=== PATIENT | female | born 1940 | race Caucasian/White ===

== ENCOUNTER 2017-04-23 13:16 | Emergency (ER) | payer MEDICARE ==
[2017-04-23 13:25] VITALS: BP 115/71
--- NOTE | 2017-04-23 13:45 | ER Document Report ---
ED Medical Screen (RME) - General Chief Complaint: General Weakness Stated Complaint: LETHARGIC Time Seen by Provider: 04/23/17 13:39 TRAVEL OUTSIDE OF THE [place] IN LAST 30 DAYS: No - HPI Notes: 04/23/17 13:44 ams since tihs am - Related Data Allergies/Adverse Reactions: No Known Allergies Allergy (Verified 04/25/15 20:19) Past Medical History - Past Medical History Cardiac Medical History: Reports: Hx Hypertension Renal/ Medical History: Denies: Hx Peritoneal Dialysis GI Medical History: Reports: Hx Gastroesophageal Reflux Disease Psychiatric Medical History: Reports: Hx Dementia - Immunizations Hx Diphtheria, Pertussis, Tetanus Vaccination: Yes Review of Systems - Review of Systems Constitutional: Other - ams Physical Exam - Vital signs Vitals: Temp Pulse Resp BP Pulse Ox 98.2 F 102 H 18 115/71 94 04/23/17 13:22 04/23/17 13:22 04/23/17 13:22 04/23/17 13:22 04/23/17 13:22 - Respiratory Respiratory status: No respiratory distress Chest status: Nontender Breath sounds: Normal Chest palpation: Normal Course - Vital Signs Vital signs: Temp Pulse Resp BP Pulse Ox 98.2 F 102 H 18 115/71 94 04/23/17 13:22 04/23/17 13:22 04/23/17 13:22 04/23/17 13:22 04/23/17 13:22
[2017-04-23 14:09] LABS: ABSOLUTE LYMPHOCYTES (AUTO) 0.9 10^3/uL (0.5-4.7); ABSOLUTE MONOCYTES (AUTO) 1.4 10^3/uL (0.1-1.4); ABSOLUTE NEUT (AUTO) 8.9 10^3/uL (1.7-8.2); BASOPHILS % (AUTO) 0.1 % (0-2); EOSINOPHILS % (AUTO) 0.1 % (0-6); HEMATOCRIT 40.6 % (36.0-47.0); HEMOGLOBIN 14.3 g/dL (12.0-15.5); HGB HCT DIFFERENCE 2.3; MEAN CORPUSCULAR HEMOGLOBIN 30.6 pg (27.0-33.4); MEAN CORPUSCULAR HGB CONC 35.1 g/dL (32.0-36.0); MEAN CORPUSCULAR VOLUME 87 fl (80-97); MONOCYTES % (AUTO) 12.3 % (3-13); RED BLOOD COUNT 4.66 10^6/uL (3.72-5.28); RED CELL DISTRIBUTION WIDTH 13.2 % (11.5-14.0); SEGMENTED NEUTROPHILS % (AUTO) 79.5 % (42-78); WHITE BLOOD COUNT 11.2 10^3/uL (4.0-10.5)
[2017-04-23 14:11] LABS: VENOUS BLOOD HCO3 30.9 mmol/L (20-32); VENOUS BLOOD PCO2 49.7 mmHg (35-63); VENOUS BLOOD PH 7.41 (7.30-7.42)
[2017-04-23 14:18] LABS: PROTHROMBIN TIME 13.1 SEC (11.4-15.4)
[2017-04-23 14:32] LABS: ALANINE AMINOTRANSFERASE 12 U/L (9-52); ALKALINE PHOSPHATASE 47 U/L (38-126); ANION GAP 11 (5-19); ASPARTATE AMINO TRANSFERASE 19 U/L (14-36); BILIRUBIN,DIRECT 0.4 mg/dL (0.0-0.4); BILIRUBIN,TOTAL 0.7 mg/dL (0.2-1.3); BLOOD UREA NITROGEN 17 mg/dL (7-20); CALCIUM 9.7 mg/dL (8.4-10.2); CARBON DIOXIDE 29 mmol/L (22-30); CHLORIDE 103 mmol/L (98-107); CREATININE RESULT 0.57 mg/dL (0.52-1.25); GLUCOSE 144 mg/dL (75-110); POTASSIUM 3.9 mmol/L (3.6-5.0); SODIUM 143.3 mmol/L (137-145); TOTAL PROTEIN 7.8 g/dL (6.3-8.2)
--- NOTE | 2017-04-23 14:42 | RADIOLOGY REPORT (SQ) ---
EXAM DESCRIPTION: CT HEAD WITHOUT COMPLETED DATE/TIME: 04/23/2017 2:26 pm REASON FOR STUDY: ams COMPARISON: 04/25/2015. TECHNIQUE: Axial images acquired through the brain without intravenous contrast. Images reviewed wi th bone, brain and subdural windows. Images stored on PACS. All CT scanners at this facility use dose modulation, iterative reconstruction, and/or weight based d osing when appropriate to reduce radiation dose to as low as reasonably achievable (ALARA). [facility]: Dose Right [facility]: CareDose [facility]: Dose Right [facility]: Teradose 4D [facility]: Smart [facility]MD[facility]group RADIATION DOSE: Up-to-date CT equipment and radiation dose reduction techniques were employed. CTDIv ol: 64.6 mGy. DLP: 1163 mGy-cm.mGy. LIMITATIONS: None. FINDINGS: VENTRICLES: Prominent. CEREBRUM: No masses. No hemorrhage. No midline shift. Areas of low density in the white matter mos t likely due to chronic micro-vascular ischemic change. No evidence for acute infarction. CEREBELLUM: No masses. No hemorrhage. No alteration of density. No evidence for acute infarction. EXTRAAXIAL SPACES: Age-related involutional change. No fluid collections. No masses. ORBITS AND GLOBE: No intra- or extraconal masses. Normal contour of globe without masses. CALVARIUM: No fracture. PARANASAL SINUSES: No fluid or mucosal thickening. SOFT TISSUES: No mass or hematoma. OTHER: No other significant finding. IMPRESSION: CHRONIC CHANGES OF ATROPHY AND MICROVASCULAR ISCHEMIA. NO ACUTE PROCESS. TECHNICAL DOCUMENTATION: JOB ID: [id number] Quality ID # [id number]: Final reports with documentation of one or more dose reduction techniques (e.g., Au tomated exposure control, adjustment of the mA and/or kV according to patient size, use of iterative reconstruction technique) 2010 [employer]- All Rights Reserved
--- NOTE | 2017-04-23 14:42 | RADIOLOGY REPORT (SQ) ---
EXAM DESCRIPTION: CHEST PA/LAT COMPLETED DATE/TIME: 04/23/2017 2:34 pm REASON FOR STUDY: sob COMPARISON: 04/21/2016. EXAM PARAMETERS: NUMBER OF VIEWS: two views TECHNIQUE: Digital Frontal and Lateral radiographic views of the chest acquired. RADIATION DOSE: NA LIMITATIONS: none FINDINGS: LUNGS AND PLEURA: No opacities, masses or pneumothorax. No pleural effusion. MEDIASTINUM AND HILAR STRUCTURES: No masses or contour abnormalities. HEART AND VASCULAR STRUCTURES: Heart upper limits of normal size. No evidence for failure. BONES: No acute findings. HARDWARE: None in the chest. OTHER: No other significant finding. IMPRESSION: NO SIGNIFICANT RADIOGRAPHIC FINDING IN THE CHEST. TECHNICAL DOCUMENTATION: JOB ID: [id number] [employer]- All Rights Reserved
[2017-04-23 15:08] LABS: APPEARANCE,URINE SLIGHTLY-CLOUDY; BILIRUBIN,URINE NEGATIVE (NEGATIVE); GLUCOSE, URINE NEGATIVE (NEGATIVE); KETONES,URINE TRACE mg/dL (NEGATIVE); LEUKOCYTE ESTERASE,URINE NEGATIVE (NEGATIVE); NITRITE,URINE POSITIVE (NEGATIVE); PROTEIN,URINE 100 mg/dL (NEGATIVE); URINE SPECIFIC GRAVITY 1.014; UROBILINOGEN,URINE NEGATIVE mg/dL (<2.0)
--- NOTE | 2017-04-23 15:22 | ER Document Report ---
ED General - General Chief Complaint: General Weakness Stated Complaint: LETHARGIC Time Seen by Provider: 04/23/17 13:39 TRAVEL OUTSIDE OF THE [place] IN LAST 30 DAYS: No - HPI Notes: Patient is a 76-year-old female with a history of Alzheimer's, hypertension, and GERD who presents to the ED with son and daughter with altered mental status that began this morning. Son states that she has not been acting like herself, has been acting weaker than usual, and is not as communicative as she normally is. patient has also not been eating well today. She still producing wet and dirty diapers. Patient does have a 24-hour caregiver in her daughter. Son states that she does have a history of recurrent UTIs. Patient is only able to ambulate with assistance, but she has not been wanting to stand even with the assistance today. Son states that she still will talk randomly at times without any provocation. She has not started any new medications. Denies any drug allergies. Per Son: denies any headache, fever, head injury, neck pain, URI, syncope, cough, shortness of breath, wheeze, dyspnea, vomiting/ diarrhea, urinary retention, hematuria, muscle paralysis/weakness, or rash. - Related Data Allergies/Adverse Reactions: No Known Allergies Allergy (Verified 04/25/15 20:19) Past Medical History - Social History Smoking Status: Never Smoker Chew tobacco use (# tins/day): No Frequency of alcohol use: None Drug Abuse: None Family History: Reviewed & Not Pertinent - Past Medical History Cardiac Medical History: Reports: Hx Hypertension Renal/ Medical History: Denies: Hx Peritoneal Dialysis GI Medical History: Reports: Hx Gastroesophageal Reflux Disease Psychiatric Medical History: Reports: Hx Dementia - Immunizations Hx Diphtheria, Pertussis, Tetanus Vaccination: Yes Review of Systems - Review of Systems -: Yes ROS unobtainable due to patient's medical condition - see hpi otherwise for pertinent ROS Hematologic/Lymphatic: denies: Easy bleeding, Easy bruising Neurological/Psychological: denies: Seizure Physical Exam - Vital signs Vitals: Temp Pulse Resp BP Pulse Ox 98.2 F 102 H 18 115/71 94 04/23/17 13:22 04/23/17 13:22 04/23/17 13:22 04/23/17 13:22 04/23/17 13:22 Notes: PHYSICAL EXAMINATION: GENERAL: Well-appearing, well-nourished and in no acute distress. Alert and arousable. HEAD: Atraumatic, normocephalic. Non-tender. No mahoney sign EYES: Pupils equal round and reactive to light, extraocular movements intact, sclera anicteric, conjunctiva are normal. No raccoon eyes/entrapment ENT: EAC clear b/l. TM's intact b/l without erythema, fluid, or perforation. Nares patent and without discharge. oropharynx clear without exudates. No tonsilar hypertrophy or erythema. Moist mucous membranes. No sinus tenderness. No hemotympanum/CSF discharge. NECK: Normal range of motion, supple without lymphadenopathy. No rigidity. No midline tenderness. Chest: No flail chest. equal rise/fall. Non-tender LUNGS: Breath sounds clear to auscultation bilaterally and equal. No wheezes rales or rhonchi. HEART: Regular rate and rhythm without murmurs, rubs, gallops. ABDOMEN: Soft, nontender, nondistended abdomen. No guarding, no rebound. No masses appreciated. Normal bowel sounds present. No CVA tenderness bilaterally. Musculoskeletal: Ext b/l: FROM to passive/active. Strength 5+/5. No deficits noted. No bony tenderness of extremities. No calf warmth, erythema, or tenderness to palp. Parris neg. Extremities: No cyanosis, clubbing, or edema b/l. Peripheral pulses 2+. Capillary refill less than 2 seconds. NEUROLOGICAL: unable to perform MMSE/NIH due to patient's Alzheimers. Cranial nerves grossly intact. Normal speech when she does speak (does not sound slurred, but is spoken in a low voice. Normal sensory. Reflexes 2+ b/l. PSYCH: Normal mood, normal affect. SKIN: Warm, Dry, normal turgor, no rashes or lesions noted. Course - Re-evaluation Re-evalutation: 04/23/17 16:[address] Aranda who is in agreement with discharge/plan: Patient is an afebrile, well-hydrated, 76-year-old female who presents to the ED with altered mental status and UTI. Vitals are stable. PE otherwise unremarkable for any focal neurological deficits otherwise. Exam was limited due to patient's Alzheimer's. CBC showed a very mildly elevated white count of 11.2. CMP was generally unremarkable with a lactic acid of 2.4. Urinalysis did show nitrates. Urine culture is pending. CT scan of the head and chest x- ray were unremarkable for any acute pathology. EKG and cardiac enzymes also unremarkable for any acute pathology at this time. There was a very mildly elevated d-dimer at 1.05, but patient is not tachypneic, tachycardic, hyper/ hypotensive, not in any respiratory distress, no obvious signs of chest pain, and a well's score of 0. No further evaluation warranted at this time with the low risk factors. Rocephin 1 g was given IV today. I will send her home with keflex to take as directed. Recheck with your PCM in 2-3 days. Return to the ED with any worsening/concerning symptoms otherwise as reviewed in discharge. Son is in agreement. Low suspicion for any acute glaucoma, temporal arteritis, meningitis, intracranial hemorrhage, ischemic stroke, ACS, PE, pneumothorax, pericarditis, dissection, acute abdomen, mediastinitis, or fracture at this time. Son is aware that her condition can change from initial presentation and that he needs to monitor symptoms closely for any acute changes and seek medical attention if so. - Vital Signs Vital signs: Temp Pulse Resp BP Pulse Ox 98.2 F 102 H 18 115/71 94 04/23/17 13:22 04/23/17 13:22 04/23/17 13:22 04/23/17 13:22 04/23/17 13:22 - Laboratory Result Diagrams: 04/23/17 13:54 04/23/17 13:54 Laboratory results interpreted by me: 04/23/17 04/23/17 04/23/17 13:54 13:54 13:54 WBC 11.2 H Seg Neutrophils % 79.5 H Lymphocytes % 8.0 L Absolute Neutrophils 8.9 H D-Dimer Glucose 144 H POC Glucose Lactic Acid 2.4 H Urine Protein Urine Ketones Urine Blood Urine Nitrite 04/23/17 04/23/17 04/23/17 13:54 13:57 14:42 WBC Seg Neutrophils % Lymphocytes % Absolute Neutrophils D-Dimer 1.05 H Glucose POC Glucose 138 H Lactic Acid Urine Protein 100 H Urine Ketones TRACE H Urine Blood LARGE H Urine Nitrite POSITIVE H 04/23/17 15:15 WBC Seg Neutrophils % Lymphocytes % Absolute Neutrophils D-Dimer Glucose POC Glucose 113 H Lactic Acid Urine Protein Urine Ketones Urine Blood Urine Nitrite Discharge - Discharge Clinical Impression: UTI (urinary tract infection) Qualifiers: Urinary tract infection type: site unspecified Hematuria presence: without hematuria Qualified Code(s): N39.0 - Urinary tract infection, site not specified Altered mental status, unspecified Qualifiers: Altered mental status type: unspecified Qualified Code(s): R41.82 - Altered mental status, unspecified Condition: Stable Disposition: HOME, SELF-CARE Instructions: Cephalexin ([facility]), Urinary Tract Infection ([facility]), Altered Mental Status ([facility]) Additional Instructions: Push fluids (i.e. water, cranberry juice) Proper hygenic technique Keep the skin clean Tylenol/ibuprofen as needed May use over the counter AZO for burning with urination Take medications as directed F/u with your PCM in 2-3 days for a recheck Consider consult with a Urologist for ongoing/worsening symptoms. Return to the ED with any worsening symptoms and/or development of fever, headache, chest pain, palpitations, syncope, shortness of breath, trouble breathing, abdominal pain, n/v/d, blood in stool/urine, muscle weakness/ paralysis, numbness/tingling, or other worsening symptoms that are concerning to you. Prescriptions: Cephalexin Monohydrate [Keflex 500 mg Capsule] 500 mg PO BID #14 capsule Referrals: BELKYS [place] MD [Primary Care Provider] - 04/25/17
[2017-04-23] MEDS ORDERED: NORMAL SALINE 1000 ML 1,000 ML IV ONE (15:40)
[2017-04-23] MEDS ORDERED: CEFTRIAXONE 1 GM/D5W RTU 1 GM/50 ML RTUPB IV ONE ×2 (16:19→16:46)
--- NOTE | 2017-04-23 23:23 | EKG REPORT ---
SEVERITY:- ABNORMAL ECG - SINUS RHYTHM LEFT ATRIAL ABNORMALITY PROBABLE LEFT VENTRICULAR HYPERTROPHY : Confirmed by: Mauricio Randall 23-Apr-2017 23:22:52
== END 2017-04-23 18:08 | disposition home or self-care (01) ==
LOC: ER 13:16
DX: N39.0 Urinary tract infection, site not specified (principal); R41.82 Altered mental status, unspecified; R53.1 Weakness; R53.83 Other fatigue; G30.9 Alzheimer's disease, unspecified; F02.80 Dementia in other diseases classified elsewhere, unspecified severity, without behavioral disturbance, psychotic disturbance, mood disturbance, and anxiety; I10 Essential (primary) hypertension; K21.9 Gastro-esophageal reflux disease without esophagitis
CPT/HCPCS: 93005; 99285; 96360; 51701; 36415; 87040; 87086; 82962; 85025; 85610; 80053; 81001; 84484; 85379; 82803; 83605; 71020; 70450; 93010; J7030

== ENCOUNTER 2017-06-15 14:56 | Inpatient (IN) | payer MEDICARE ==
[2017-06-15] MEDS ORDERED: NORMAL SALINE 500 ML IV PRN (15:34)
--- NOTE | 2017-06-15 15:38 | ER Document Report ---
ED General - General Chief Complaint: Probable Seizure Stated Complaint: POSSIBLE SEIZURE Time Seen by Provider: 06/15/17 15:18 Mode of Arrival: Medic Information source: Relative Notes: This is a 76-year-old female with a history of Alzheimer's, seizures, hypertension who lives at home. Home health aide called EMS because of a seizure at home. EMS arrived at the scene and reported a blood pressure of 62/ 44. The Accu-Chek at home was 115. Patient was given IV fluids by EMS and on arrival the blood pressure was 94/56. The patient has advanced dementia. Her eyes are open and she does not appear in any distress. She is accompanied by her son is at the bedside. TRAVEL OUTSIDE OF THE [place] IN LAST 30 DAYS: No - HPI Onset: Just prior to arrival Onset/Duration: Sudden Quality of pain: No pain Severity: None Pain Level: Denies Associated symptoms: denies: Chills, Fever, Shortness of breath Exacerbated by: Denies Relieved by: Denies Similar symptoms previously: Yes Recently seen / treated by doctor: Yes - Related Data Allergies/Adverse Reactions: No Known Allergies Allergy (Verified 06/15/17 15:12) Home Medications: Current Home Medications Divalproex Sodium [Divalproex Sodium ER] 750 mg PO QHS 06/15/17 [History] Ferrous Sulfate [Feosol 325 mg Tablet] 325 mg PO [id number] 06/15/17 [History] Levothyroxine Sodium [Synthroid 0.1 mg Tablet] 0.1 mg PO DAILY 06/15/17 [History ] Lisinopril [Prinivil] 20 mg PO DAILY 06/15/17 [History] Lorazepam [Ativan 1 mg Tablet] 1 mg PO Q12HP PRN 06/15/17 [History] Memantine HCl [Namenda Xr] 28 mg PO DAILY 06/15/17 [History] Omeprazole 20 mg PO DAILY 06/15/17 [History] Pravastatin Sodium [Pravachol] 40 mg PO DAILY 06/15/17 [History] Quetiapine Fumarate [Seroquel 25 mg Tablet] 25 mg PO QHS 06/15/17 [History] Rivastigmine Tartrate [Rivastigmine] 3 mg PO Q12 06/15/17 [History] Sertraline HCl [Zoloft] 150 mg PO DAILY 06/15/17 [History] Sucralfate [Carafate 1 gm Tablet] 1 gm PO Q12 06/15/17 [History] Tramadol HCl [Ultram 50 mg Tablet] 50 mg PO Q12HP PRN 06/15/17 [History] Past Medical History - General Information source: Relative, Emergency Med Personnel - Social History Smoking Status: Never Smoker Cigarette use (# per day): No Chew tobacco use (# tins/day): No Smoking Education Provided: No Frequency of alcohol use: None Drug Abuse: None Lives with: Alone Family History: Reviewed & Not Pertinent Patient has suicidal ideation: No Patient has homicidal ideation: No - Past Medical History Cardiac Medical History: Reports: Hx Hypertension Renal/ Medical History: Denies: Hx Peritoneal Dialysis GI Medical History: Reports: Hx Gastroesophageal Reflux Disease Psychiatric Medical History: Reports: Hx Dementia - Immunizations Hx Diphtheria, Pertussis, Tetanus Vaccination: Yes Review of Systems - Review of Systems Constitutional: denies: Chills, Fever EENT: No symptoms reported Cardiovascular: No symptoms reported Respiratory: No symptoms reported Gastrointestinal: No symptoms reported Genitourinary: No symptoms reported Female Genitourinary: No symptoms reported Musculoskeletal: No symptoms reported Skin: No symptoms reported Hematologic/Lymphatic: No symptoms reported Neurological/Psychological: See HPI Physical Exam - Vital signs Vitals: Resp 16 06/15/17 15:00 Notes: Physical exam: GENERAL: 76-year-old female, alert and oriented 3, no acute distress HEAD: Atraumatic, normocephalic. EYES: Pupils equal round and reactive to light, extraocular movements intact, sclera anicteric, conjunctiva are normal. ENT: TMs normal, nares patent, oropharynx clear without exudates. Moist mucous membranes. NECK: Normal range of motion, supple without obvious mass or JVD. LUNGS: Breath sounds clear to auscultation bilaterally and equal. No wheezes rales or rhonchi. HEART: Regular rate and rhythm without murmurs, rubs or gallops. ABDOMEN: Soft, normoactive bowel sounds. No tenderness to palpation. No guarding, no rebound. No masses appreciated. EXTREMITIES: Normal range of motion, no pitting or edema. No clubbing or cyanosis. NEUROLOGICAL: Cranial nerves II through XII grossly intact. Normal speech, moving all extremities. SKIN: Warm, Dry, normal turgor, no rashes or lesions noted. Course - Re-evaluation Re-evalutation: 06/15/17 17:53 This is a 76-year-old female with a history of dementia, hypertension and seizures. She lives at home and has a home health child care giver. EMS was called for possible seizure. The patient has been treated with oral antibiotics for recent UTI. EMS noted that the patient was hypotensive and treated her with fluids. From a mental status point of view, the patient has been baseline as per the son who is in the ER. Patient's blood pressure has been low at times (in the high 80s systolic). Her white count is 12.8 and her lactic acid is 4.6. While it is possible that both of those are from a possible seizure that she had may had at home, it would not explain the fluctuating blood pressure. Therefore, blood and urine cultures were sent, CT of the abdomen was done to rule out an obstructive uropathy, IV ceftriaxone was started. - Vital Signs Vital signs: Temp Pulse Resp BP Pulse Ox 99.0 F 84 16 119/93 H 93 06/15/17 18:56 06/15/17 19:00 06/15/17 18:56 06/15/17 18:56 06/15/17 18:56 - Laboratory Result Diagrams: 06/15/17 20:00 06/15/17 16:15 Laboratory results interpreted by me: 06/15/17 06/15/17 06/15/17 15:50 16:15 16:15 WBC 12.8 H Lymphocytes % 9.8 L Monocytes % 13.5 H Absolute Neutrophils 9.8 H Absolute Monocytes 1.7 H Sodium 145.3 H Potassium 3.2 L Lactic Acid Urine Protein >=500 H Urine Glucose (UA) 50 H Urine Blood LARGE H Valproic Acid 36.4 L 06/15/17 16:15 WBC Lymphocytes % Monocytes % Absolute Neutrophils Absolute Monocytes Sodium Potassium Lactic Acid 4.6 H Urine Protein Urine Glucose (UA) Urine Blood Valproic Acid - Diagnostic Test Radiology reviewed: Image reviewed, Reports reviewed - CT of the abdomen shows no evidence of obstructive uropathy. Chest x-ray shows atelectasis. - EKG Interpretation by Me Rate: Normal Rhythm: NSR - EKG shows normal sinus rhythm with a ventricular rate of 82, no acute ST-T wave changes Discharge - Discharge Clinical Impression: Hypotension, UTI, Dehydration Condition: Stable Disposition: ADMITTED INPATIENT Admitting Provider: Hospitalist - Dr Mace Unit Admitted: Telemetry
[2017-06-15 16:13] LABS: APPEARANCE,URINE SLIGHTLY-CLOUDY; BILIRUBIN,URINE NEGATIVE (NEGATIVE); GLUCOSE, URINE 50 mg/dL (NEGATIVE); KETONES,URINE NEGATIVE (NEGATIVE); LEUKOCYTE ESTERASE,URINE NEGATIVE (NEGATIVE); NITRITE,URINE NEGATIVE (NEGATIVE); PROTEIN,URINE >=500 mg/dL (NEGATIVE); URINE SPECIFIC GRAVITY 1.008; UROBILINOGEN,URINE NEGATIVE mg/dL (<2.0)
[2017-06-15 16:37] LABS: ABSOLUTE LYMPHOCYTES (AUTO) 1.3 10^3/uL (0.5-4.7); ABSOLUTE MONOCYTES (AUTO) 1.7 10^3/uL (0.1-1.4); ABSOLUTE NEUT (AUTO) 9.8 10^3/uL (1.7-8.2); BASOPHILS % (AUTO) 0.3 % (0-2); EOSINOPHILS % (AUTO) 0.3 % (0-6); HEMATOCRIT 43.9 % (36.0-47.0); HEMOGLOBIN 14.9 g/dL (12.0-15.5); HGB HCT DIFFERENCE 0.8; LYMPHOCYTES % (AUTO) 9.8 % (13-45); MEAN CORPUSCULAR HEMOGLOBIN 29.7 pg (27.0-33.4); MEAN CORPUSCULAR VOLUME 88 fl (80-97); MONOCYTES % (AUTO) 13.5 % (3-13); RED BLOOD COUNT 5.01 10^6/uL (3.72-5.28); RED CELL DISTRIBUTION WIDTH 13.2 % (11.5-14.0); SEGMENTED NEUTROPHILS % (AUTO) 76.1 % (42-78); WHITE BLOOD COUNT 12.8 10^3/uL (4.0-10.5)
[2017-06-15 16:52] LABS: ALANINE AMINOTRANSFERASE 9 U/L (9-52); ALBUMIN 3.7 g/dL (3.5-5.0); ALKALINE PHOSPHATASE 56 U/L (38-126); ANION GAP 15 (5-19); ASPARTATE AMINO TRANSFERASE 19 U/L (14-36); BILIRUBIN,DIRECT 0.3 mg/dL (0.0-0.4); BILIRUBIN,TOTAL 0.4 mg/dL (0.2-1.3); BLOOD UREA NITROGEN 8 mg/dL (7-20); CALCIUM 8.5 mg/dL (8.4-10.2); CARBON DIOXIDE 27 mmol/L (22-30); CHLORIDE 103 mmol/L (98-107); CREATININE RESULT 0.59 mg/dL (0.52-1.25); GLUCOSE 107 mg/dL (75-110); POTASSIUM 3.2 mmol/L (3.6-5.0); SODIUM 145.3 mmol/L (137-145); TOTAL PROTEIN 7.4 g/dL (6.3-8.2)
[2017-06-15 16:57] LABS: VALPROIC ACID 36.4 ug/mL (50.0-120.0)
[2017-06-15] MEDS ORDERED: DIVALPROEX SODIUM 500 MG TAB.SR.24H PO ONE (16:59)
[2017-06-15] MEDS ORDERED: NORMAL SALINE 1000 ML 1,000 ML IV PRN (17:03)
[2017-06-15] MEDS ORDERED: POTASSIUM CHLORIDE 10 MEQ TABLET.SA PO ONE ×2 (17:04→21:00)
--- NOTE | 2017-06-15 17:10 | RADIOLOGY REPORT (SQ) ---
EXAM DESCRIPTION: CHEST SINGLE VIEW COMPLETED DATE/TIME: 06/15/2017 4:41 pm REASON FOR STUDY: hypotension COMPARISON: Chest films 04/23/2017, 04/21/2016 EXAM PARAMETERS: NUMBER OF VIEWS: One view. TECHNIQUE: Single frontal radiographic view of the chest acquired. RADIATION DOSE: NA LIMITATIONS: None. FINDINGS: LUNGS AND PLEURA: Mild right basilar bandlike atelectasis. No fluffy alveolar infiltrates worrisome for edema or pneumonia. No pleural effusion. No pneumothorax. MEDIASTINUM AND HILAR STRUCTURES: No masses. Contour normal. HEART AND VASCULAR STRUCTURES: Mild cardiomegaly BONES: No acute findings. HARDWARE: None in the chest. OTHER: No other significant finding. IMPRESSION: Minimal right basilar bandlike atelectasis. Stable mild cardiomegaly. TECHNICAL DOCUMENTATION: JOB ID: [id number] [employer]- All Rights Reserved
[2017-06-15] MEDS ORDERED: CEFTRIAXONE 1 GM/D5W RTU 1 GM/50 ML RTUPB IV ONE (17:18)
--- NOTE | 2017-06-15 17:34 | RADIOLOGY REPORT (SQ) ---
EXAM DESCRIPTION: CT LTD RENAL STONE PROTOCOL ON COMPLETED DATE/TIME: 06/15/2017 5:14 pm REASON FOR STUDY: hematuria flank pain, recent uti COMPARISON: None. TECHNIQUE: CT scan of the abdomen and pelvis performed without intravenous or oral contrast. Images reviewed with lung, soft tissue, and bone windows. Reconstructed coronal and sagittal MPR images revi ewed. All images stored on PACS. All CT scanners at this facility use dose modulation, iterative reconstruction, and/or weight based d osing when appropriate to reduce radiation dose to as low as reasonably achievable (ALARA). [facility]: Dose Right [facility]: CareDose [facility]: Dose Right [facility]: Teradose 4D [facility]: FORVM RADIATION DOSE: 6.8mGy. LIMITATIONS: None. FINDINGS: LOWER CHEST: No significant findings. No nodules or infiltrates. NON-CONTRASTED LIVER, SPLEEN, ADRENALS: 2 prominent hepatic cysts are present. The spleen is normal. There is thickening of both adrenal glands. PANCREAS: No masses. No peripancreatic inflammatory changes. GALLBLADDER: Not identified. RIGHT KIDNEY AND URETER: No suspicious masses. Assessment limited by lack of IV contrast. No signif icant calcifications. No hydronephrosis or hydroureter. LEFT KIDNEY AND URETER: No suspicious masses. Assessment limited by lack of IV contrast. No signifi cant calcifications. No hydronephrosis or hydroureter. AORTA AND RETROPERITONEUM: No aneurysm. No retroperitoneal masses or adenopathy. BOWEL AND PERITONEAL CAVITY: Multiple diverticula arise from the descending colon and sigmoid. No ac cristofer inflammatory changes are appreciated. There is fluid in the cecum. APPENDIX: Not identified. PELVIS, BLADDER, AND ABDOMINAL WALL:Considerable fecal material is present in the left colon and in t he rectum. The urinary bladder has a Caldera catheter and is not able to be evaluated. The uterus is absent. There is no adnexal mass or fluid collection. BONES: Degenerative disc changes at L4-5. OTHER: No other significant finding. IMPRESSION: 1. There are 2 prominent hepatic cysts. 2. No urinary pathology is seen. 3. There is diverticulosis coli. 4. There is considerable fecal material in the left colon and in the rectum possibly suggesting cons tipation. 5. Lumbar degenerative disc changes. COMMENT: Quality ID # [id number]: Final reports with documentation of one or more dose reduction techniques (e.g., Automated exposure control, adjustment of the mA and/or kV according to patient size, use of iterative reconstruction technique) TECHNICAL DOCUMENTATION: JOB ID: [id number] [employer]- All Rights Reserved
[2017-06-15] MEDS ORDERED: ACETAMINOPHEN 325 MG TABLET PO PRN (18:21)
--- NOTE | 2017-06-15 19:03 | PDOC H&P ---
History of Present Illness Admission Date/PCP: 06/15/17 18:10 [place] MD Patient complains of: Seizure like activity History of Present Illness: Patient is a 76-year-old woman with history of advanced dementia, hyperlipidemia, hypothyroidism, seizure disorder was brought to the emergency room to be evaluated early today for possible seizure activity. She is mostly nonverbal and history was obtained from the caregiver at bedside. Earlier today home while she was getting to get a bath, caregiver noted that she started gurgling and shaking, she decided to call the EMS. On EMS arrival she was found to be hypotensive with systolic blood pressure 62 and diastolic of 44. Blood sugar 115. She was given IV fluid by EMS with improvement of her blood pressure systolic of 90. The caregiver reported about a week ago she was given antibiotics doxycycline for UTI and she had 3 pills left. She does mumbles at times but otherwise, she has not offered any complaint per the caregiver. No sign of coughing, no reports of vomiting abdominal pain no diarrhea. She does take a few steps with assist but mostly not mobile. She lives with her son. Hospitalist consulted for admission for possible sepsis along with UTI. Past Medical History Cardiac Medical History: Reports: Hypertension GI Medical History: Reports: Gastroesophageal Reflux Disease Psychiatric Medical History: Reports: Dementia Social History Smoking Status: Never Smoker Family History Family History: Reviewed & Not Pertinent Parental Family History Reviewed: No Children Family History Reviewed: Unknown Sibling(s) Family History Reviewed.: Unknown Medication/Allergy Home Medications: Divalproex Sodium [Divalproex Sodium ER] 500 mg PO DAILY 06/15/17 Doxycycline Monohydrate [Doxycycline Monohydrate] 1 tab PO BID 06/15/17 Ergocalciferol (Vitamin D2) [Vitamin D] 1,000 unit PO DAILY 06/15/17 Ferrous Sulfate [Ferrous Sulfate] 1 tab PO DAILY 06/15/17 Levothyroxine Sodium [Synthroid] 75 mcg PO DAILY 06/15/17 Lisinopril [Lisinopril] 1 tab PO DAILY 06/15/17 Lorazepam [Lorazepam] 1 tab PO BID 06/15/17 Memantine HCl [Namenda Xr] 1 tab PO DAILY 06/15/17 Omeprazole [Omeprazole] 1 tab PO DAILY 06/15/17 Pravastatin Sodium [Pravastatin Sodium] 20 mg PO DAILY 06/15/17 Quetiapine Fumarate 25 mg PO BID 06/15/17 Rivastigmine Tartrate [Rivastigmine] 1 tab PO BID 06/15/17 Sertraline HCl [Sertraline HCl] 150 mg PO DAILY 06/15/17 Sucralfate [Carafate 1 gm Tablet] 1 gm PO BID 06/15/17 Zolpidem Tartrate [Ambien] 10 mg PO DAILY 06/15/17 Allergies/Adverse Reactions: No Known Allergies Allergy (Verified 06/15/17 15:12) Review of Systems ROS unobtainable: Other - Most non verbal and history obtained from caregiver Constitutional: ABSENT: chills, fever(s), headache(s), weight gain, weight loss Eyes: ABSENT: visual disturbances Physical Exam Vital Signs: Temp Pulse Resp BP Pulse Ox 98.8 F 19 106/75 98 06/15/17 17:46 06/15/17 17:46 06/15/17 17:46 06/15/17 17:46 General appearance: PRESENT: no acute distress, other - Pleasant elderly woman Head exam: PRESENT: atraumatic, normocephalic Eye exam: PRESENT: EOMI, PERRLA. ABSENT: scleral icterus Mouth exam: PRESENT: moist, tongue midline Neck exam: ABSENT: JVD Respiratory exam: PRESENT: clear to auscultation lyssa. ABSENT: rales, rhonchi, wheezes Cardiovascular exam: PRESENT: RRR. ABSENT: diastolic murmur, rubs, systolic murmur Vascular exam: PRESENT: normal capillary refill GI/Abdominal exam: PRESENT: normal bowel sounds, soft. ABSENT: distended, guarding, mass, organolmegaly, rebound, tenderness Rectal exam: PRESENT: deferred Extremities exam: PRESENT: full ROM. ABSENT: calf tenderness, clubbing, pedal edema Neurological exam: PRESENT: alert, awake Psychiatric exam: PRESENT: appropriate affect, normal mood. ABSENT: homicidal ideation, suicidal ideation Skin exam: PRESENT: dry, warm. ABSENT: cyanosis, rash Results Laboratory Results: 06/15/17 06/15/17 06/15/17 16:15 16:15 16:15 WBC 12.8 H RBC 5.01 Hgb 14.9 Hct 43.9 MCV 88 Plt Count 218 Lymphocytes % 9.8 L Sodium 145.3 H Potassium 3.2 L Chloride 103 Carbon Dioxide 27 BUN 8 Creatinine 0.59 Glucose 107 Lactic Acid 4.6 H Impressions: Chest X-Ray 06/15/17 15:38 IMPRESSION: Minimal right basilar bandlike atelectasis. Stable mild cardiomegaly. Limited or Localized CT 06/15/17 17:00 IMPRESSION: 1. There are 2 prominent hepatic cysts. 2. No urinary pathology is seen. 3. There is diverticulosis coli. 4. There is considerable fecal material in the left colon and in the rectum possibly suggesting constipation. 5. Lumbar degenerative disc changes. Assessment & Plan - Diagnosis (1) Sepsis associated hypotension Is this a current diagnosis for this admission?: Yes Plan: Secondary to urinary source Has been on p.o. antibiotics for UTI outpatient Blood and urine cultures sent Continue ceftriaxone pending culture Chest x-ray with atelectasis Follow-up repeat lactic acid (2) Hypotension Is this a current diagnosis for this admission?: Yes Plan: Holding home antihypertensive BP improved Continue IV fluid (3) Advanced dementia Is this a current diagnosis for this admission?: Yes Plan: Continue home regimen (4) Hypokalemia Is this a current diagnosis for this admission?: Yes Plan: Potassium supplement added Follow-up labs in the morning (5) Hyperlipidemia Is this a current diagnosis for this admission?: Yes Plan: Continue statin (6) Hypothyroidism Is this a current diagnosis for this admission?: Yes Plan: Continue Synthroid (7) DVT prophylaxis Is this a current diagnosis for this admission?: Yes Plan: On Lovenox - Time Time Spent: 50 to 70 Minutes Medications reviewed and adjusted accordingly: Yes Anticipated discharge: Home - Inpatient Certification Medical Necessity: Failure to Improve With Outpatient Therapy, Need For IV Fluids, Need for IV Antibiotics
--- NOTE | 2017-06-15 19:17 | EKG REPORT ---
SEVERITY:- ABNORMAL ECG - SINUS RHYTHM LEFT ATRIAL ABNORMALITY LEFT VENTRICULAR HYPERTROPHY PROLONGED QT INTERVAL : Confirmed by: Shaka Garcia MD 15-Jun-2017 19:16:57
[2017-06-15 20:48] LABS: ABSOLUTE LYMPHOCYTES (AUTO) 1.6 10^3/uL (0.5-4.7); ABSOLUTE MONOCYTES (AUTO) 0.7 10^3/uL (0.1-1.4); ABSOLUTE NEUT (AUTO) 4.9 10^3/uL (1.7-8.2); BASOPHILS % (AUTO) 0.6 % (0-2); EOSINOPHILS % (AUTO) 0.1 % (0-6); HEMATOCRIT 44.7 % (36.0-47.0); HEMOGLOBIN 15.4 g/dL (12.0-15.5); HGB HCT DIFFERENCE 1.5; LYMPHOCYTES % (AUTO) 21.9 % (13-45); MEAN CORPUSCULAR HEMOGLOBIN 29.7 pg (27.0-33.4); MEAN CORPUSCULAR HGB CONC 34.5 g/dL (32.0-36.0); MEAN CORPUSCULAR VOLUME 86 fl (80-97); MONOCYTES % (AUTO) 9.9 % (3-13); RED CELL DISTRIBUTION WIDTH 13.6 % (11.5-14.0); SEGMENTED NEUTROPHILS % (AUTO) 67.5 % (42-78); WHITE BLOOD COUNT 7.2 10^3/uL (4.0-10.5)
[2017-06-15] MEDS ORDERED: ENOXAPARIN SODIUM INJ 30 MG/0.3 ML DISP.SYRIN SUBCUT ONE (21:00)
[2017-06-15] MEDS: QUETIAPINE FUMARATE 25 MG TABLET PO SCH (21:55)
[2017-06-15] MEDS: SUCRALFATE 1 GM TABLET PO SCH (21:55)
[2017-06-15] MEDS: RIVASTIGMINE TARTRATE 1.5 MG CAPSULE PO SCH (21:56)
[2017-06-15] MEDS ORDERED: POTASSIUM CHLORIDE 20 MEQ/15 ML UDCUP PO ONE (22:00)
[2017-06-16] MEDS: LANSOPRAZOLE 15 MG TAB.RAP.DR PO SCH (05:21)
[2017-06-16 05:49] LABS: ABSOLUTE EOSINOPHILS # (AUTO) 0.1 10^3/uL (0.0-0.6); ABSOLUTE LYMPHOCYTES (AUTO) 2.6 10^3/uL (0.5-4.7); ABSOLUTE MONOCYTES (AUTO) 0.8 10^3/uL (0.1-1.4); ABSOLUTE NEUT (AUTO) 3.2 10^3/uL (1.7-8.2); BASOPHILS % (AUTO) 0.6 % (0-2); HEMATOCRIT 33.2 % (36.0-47.0); HGB HCT DIFFERENCE 1.6; LYMPHOCYTES % (AUTO) 39.1 % (13-45); MEAN CORPUSCULAR HEMOGLOBIN 29.8 pg (27.0-33.4); MEAN CORPUSCULAR HGB CONC 34.8 g/dL (32.0-36.0); MEAN CORPUSCULAR VOLUME 86 fl (80-97); MONOCYTES % (AUTO) 11.5 % (3-13); RED BLOOD COUNT 3.88 10^6/uL (3.72-5.28); RED CELL DISTRIBUTION WIDTH 13.4 % (11.5-14.0); SEGMENTED NEUTROPHILS % (AUTO) 47.8 % (42-78); WHITE BLOOD COUNT 6.7 10^3/uL (4.0-10.5)
[2017-06-16 06:06] LABS: HEMOGLOBIN 11.6 g/dL (12.0-15.5)
[2017-06-16 06:09] LABS: ANION GAP 10 (5-19); BLOOD UREA NITROGEN 10 mg/dL (7-20); CARBON DIOXIDE 24 mmol/L (22-30); CHLORIDE 111 mmol/L (98-107); GLUCOSE 90 mg/dL (75-110); SODIUM 144.5 mmol/L (137-145)
[2017-06-16 06:10] LABS: POTASSIUM 4.4 mmol/L (3.6-5.0)
[2017-06-16] MEDS: SUCRALFATE 1 GM TABLET PO SCH ×2 (09:36→21:58)
[2017-06-16] MEDS: QUETIAPINE FUMARATE 25 MG TABLET PO SCH ×2 (09:36→21:56)
[2017-06-16] MEDS: RIVASTIGMINE TARTRATE 1.5 MG CAPSULE PO SCH ×2 (09:36→22:02)
[2017-06-16] MEDS: SERTRALINE HCL 50 MG TABLET PO SCH (09:36)
[2017-06-16] MEDS: CEFTRIAXONE 1 GM/D5W RTU 1 GM/50 ML RTUPB IV SCH (09:37)
[2017-06-16] MEDS: FERROUS SULFATE 325 MG TABLET PO SCH (09:38)
[2017-06-16] MEDS: ENOXAPARIN SODIUM INJ 30 MG/0.3 ML DISP.SYRIN SUBCUT SCH (09:39)
[2017-06-16] MEDS ORDERED: ZOLPIDEM TARTRATE 5 MG TABLET PO SCH (10:00)
[2017-06-16] MEDS ORDERED: MEMANTINE HCL PO SCH (10:00)
[2017-06-16] MEDS ORDERED: (PENDING PHARMACY ID) (Pravastatin Sodium [Pravastatin Sodium] 20 MG) PO SCH (10:00)
[2017-06-16] MEDS ORDERED: RIVASTIGMINE TARTRATE PO SCH (10:00)
[2017-06-16] MEDS ORDERED: (PENDING PHARMACY ID) (Sertraline Hcl [Sertraline Hcl] 150 MG) PO SCH (10:00)
[2017-06-16] MEDS ORDERED: LEVOTHYROXINE SODIUM 0.075 MG TABLET PO SCH (10:00)
[2017-06-16] MEDS ORDERED: CHOLECALCIFEROL (D3) 1,000 UNIT TABLET PO SCH (10:00)
[2017-06-16] MEDS ORDERED: (PENDING PHARMACY ID) (Ergocalciferol (Vitamin D2) [Vitamin D] 1,000 UNIT) PO SCH (10:00)
[2017-06-16] MEDS ORDERED: DIVALPROEX SODIUM 500 MG TAB.SR.24H PO SCH (10:00)
[2017-06-16] MEDS ORDERED: (PENDING PHARMACY ID) (Zolpidem Tartrate [Ambien] 10 MG) PO SCH (10:00)
--- NOTE | 2017-06-16 12:04 | PDOC PROGRESS REPORT ---
Subjective Progress Note for:: 06/16/17 Subjective:: Patient is a 76-year-old woman with history of advanced dementia, hyperglycemia, hypothyroidism, seizure disorder was brought to the emergency room to be evaluated on 06/15/2017 for possible seizure activity. She is mostly nonverbal and history obtained from the caregiver at bedside on admission. On the day of admission, while she was getting a bath, the caregiver noted that she started gurgling and shaking, she decided to call the EMS. On EMS arrival she was found to be hypotensive with systolic blood pressure 62 and diastolic of 44. Blood sugar 115. She was given IV fluid by EMS with improvement of her blood pressure in ED. About a week ago she was given antibiotic for UTI which she did not completely, she had about 3 pills left. Seen and examined this am, no new reports from staff nor son at bedside. Son was updated and he was expecting her caregiver to be coming later to be with her. Physical Exam Vital Signs: Temp Pulse Resp BP Pulse Ox 97.3 F 78 14 110/58 L 98 06/16/17 07:30 06/16/17 07:30 06/16/17 07:30 06/16/17 07:30 06/16/17 07:30 Intake & Output 06/15/17 06/16/17 06/17/17 06:59 06:59 06:59 Intake Total 200 Output Total 300 Balance -100 Weight 63.8 kg General appearance: PRESENT: no acute distress, other - Pleasant elderly woman Head exam: PRESENT: atraumatic, normocephalic Eye exam: PRESENT: conjunctiva pink, EOMI. ABSENT: scleral icterus Mouth exam: PRESENT: moist, tongue midline, other - edentulous Respiratory exam: PRESENT: clear to auscultation lyssa. ABSENT: rales, rhonchi, wheezes Cardiovascular exam: PRESENT: RRR, systolic murmur. ABSENT: diastolic murmur Vascular exam: PRESENT: normal capillary refill GI/Abdominal exam: PRESENT: normal bowel sounds, soft. ABSENT: distended, guarding, mass, organolmegaly, rebound, tenderness Rectal exam: PRESENT: deferred Extremities exam: PRESENT: full ROM. ABSENT: calf tenderness, clubbing, pedal edema Neurological exam: PRESENT: alert, awake Psychiatric exam: PRESENT: appropriate affect, normal mood Skin exam: PRESENT: dry, intact, warm. ABSENT: cyanosis, rash Results Laboratory Results: 06/16/17 04:05 06/16/17 04:05 06/15/17 06/15/17 06/15/17 20:00 20:00 20:55 WBC 7.2 RBC 5.20 Hgb 15.4 Hct 44.7 MCV 86 MCH 29.7 MCHC 34.5 RDW 13.6 Plt Count 189 Seg Neutrophils % 67.5 Lymphocytes % 21.9 Monocytes % 9.9 Eosinophils % 0.1 Basophils % 0.6 Absolute Neutrophils 4.9 Absolute Lymphocytes 1.6 Absolute Monocytes 0.7 Absolute Eosinophils 0.0 Absolute Basophils 0.0 Sodium Potassium Chloride Carbon Dioxide Anion Gap BUN Creatinine Est GFR ( Amer) Est GFR (Non-Af Amer) Glucose Lactic Acid 2.6 H Calcium Magnesium 1.7 06/16/17 06/16/17 06/16/17 04:05 04:05 08:28 WBC 6.7 RBC 3.88 Hgb 11.6 L D Hct 33.2 L MCV 86 MCH 29.8 MCHC 34.8 RDW 13.4 Plt Count 200 Seg Neutrophils % 47.8 Lymphocytes % 39.1 Monocytes % 11.5 Eosinophils % 1.0 Basophils % 0.6 Absolute Neutrophils 3.2 Absolute Lymphocytes 2.6 Absolute Monocytes 0.8 Absolute Eosinophils 0.1 Absolute Basophils 0.0 Sodium 144.5 Potassium 4.4 D Chloride 111 H Carbon Dioxide 24 Anion Gap 10 BUN 10 Creatinine 0.60 Est GFR ( Amer) > 60 Est GFR (Non-Af Amer) > 60 Glucose 90 Lactic Acid 1.1 Calcium 8.0 L Magnesium Impressions: Chest X-Ray 06/15/17 15:38 IMPRESSION: Minimal right basilar bandlike atelectasis. Stable mild cardiomegaly. Limited or Localized CT 06/15/17 17:00 IMPRESSION: 1. There are 2 prominent hepatic cysts. 2. No urinary pathology is seen. 3. There is diverticulosis coli. 4. There is considerable fecal material in the left colon and in the rectum possibly suggesting constipation. 5. Lumbar degenerative disc changes. Assessment & Plan - Diagnosis (1) Sepsis associated hypotension Is this a current diagnosis for this admission?: Yes Plan: Likely 2/2 to urinary source Has been on p.o. antibiotics for UTI outpatient Blood culture pending and urine culture thus far negative to date Continue ceftriaxone Lactic acidosis resolved (2) Hypotension Is this a current diagnosis for this admission?: Yes Plan: Holding home antihypertensive Blood pressure borderline low Continue IVF (3) Advanced dementia Is this a current diagnosis for this admission?: Yes Plan: Continue home regimen (4) Hypokalemia Is this a current diagnosis for this admission?: Yes Plan: Resolved (5) Hyperlipidemia Is this a current diagnosis for this admission?: Yes Plan: Continue statin (6) Hypothyroidism Is this a current diagnosis for this admission?: Yes Plan: Continue Synthroid (7) DVT prophylaxis Is this a current diagnosis for this admission?: Yes Plan: On Lovenox - Time Time Spent with patient: 15-24 minutes
[2017-06-16] MEDS: 1/2 NORMAL SALINE 1,000 ML IV PRN (23:47)
[2017-06-17] MEDS: LANSOPRAZOLE 15 MG TAB.RAP.DR PO SCH (05:03)
[2017-06-17] MEDS: CEFTRIAXONE 1 GM/D5W RTU 1 GM/50 ML RTUPB IV SCH (09:38)
[2017-06-17] MEDS: FERROUS SULFATE 325 MG TABLET PO SCH (09:38)
[2017-06-17] MEDS: QUETIAPINE FUMARATE 25 MG TABLET PO SCH (09:39)
[2017-06-17] MEDS: RIVASTIGMINE TARTRATE 1.5 MG CAPSULE PO SCH ×2 (09:39→22:03)
[2017-06-17] MEDS: SERTRALINE HCL 50 MG TABLET PO SCH (09:39)
[2017-06-17] MEDS: SUCRALFATE 1 GM TABLET PO SCH ×2 (09:39→22:03)
[2017-06-17] MEDS: ENOXAPARIN SODIUM INJ 30 MG/0.3 ML DISP.SYRIN SUBCUT SCH (09:41)
[2017-06-17] MEDS: PT OWN MED (POM) PO SCH (10:20)
[2017-06-17] MEDS: 1/2 NORMAL SALINE 1,000 ML IV PRN (12:49)
[2017-06-17] MEDS ORDERED: LORAZEPAM 1 MG TABLET PO PRN ×2 (13:30→20:29)
--- NOTE | 2017-06-17 13:51 | PDOC PROGRESS REPORT ---
Subjective Progress Note for:: 06/17/17 Subjective:: Patient is a 76-year-old woman with history of advanced dementia, hyperglycemia, hypothyroidism, seizure disorder was brought to the emergency room to be evaluated on 06/15/2017 for possible seizure activity. She is mostly nonverbal and history obtained from the caregiver at bedside on admission. On the day of admission, while she was getting a bath, the caregiver noted that she started gurgling and shaking, she decided to call the EMS. On EMS arrival she was found to be hypotensive with systolic blood pressure 62 and diastolic of 44. Blood sugar 115. She was given IV fluid by EMS with improvement of her blood pressure in ED. About a week ago she was given antibiotic for UTI which she did not completely, she had about 3 pills left. Started on ceftriaxone, blood and urine culture remain negative. She has been afebrile. Seen and examined this am, no acute events reported overnight. She was being fed by her son. He was updated. Physical Exam Vital Signs: Temp Pulse Resp BP Pulse Ox 98.0 F 83 18 139/88 H 96 06/17/17 11:43 06/17/17 11:43 06/17/17 11:43 06/17/17 11:43 06/17/17 11:43 Intake & Output 06/16/17 06/17/17 06/18/17 06:59 06:59 06:59 Intake Total 200 2163 Output Total 300 400 Balance -100 1763 Weight 63.8 kg 67 kg General appearance: PRESENT: no acute distress, other - pleasantly demented elderly woman Head exam: PRESENT: atraumatic, normocephalic Eye exam: PRESENT: EOMI Mouth exam: PRESENT: moist Teeth exam: PRESENT: edentulous Neck exam: PRESENT: full ROM. ABSENT: JVD Respiratory exam: PRESENT: clear to auscultation lyssa, symmetrical, unlabored. ABSENT: accessory muscle use Cardiovascular exam: PRESENT: +S1, +S2, systolic murmur GI/Abdominal exam: PRESENT: normal bowel sounds, soft. ABSENT: distended, tenderness Rectal exam: PRESENT: deferred Musculoskeletal exam: PRESENT: other. ABSENT: ambulatory Neurological exam: PRESENT: alert, awake Psychiatric exam: PRESENT: normal mood Skin exam: PRESENT: dry, intact, warm Results Laboratory Results: 06/16/17 04:05 06/16/17 04:05 Impressions: Chest X-Ray 06/15/17 15:38 IMPRESSION: Minimal right basilar bandlike atelectasis. Stable mild cardiomegaly. Limited or Localized CT 06/15/17 17:00 IMPRESSION: 1. There are 2 prominent hepatic cysts. 2. No urinary pathology is seen. 3. There is diverticulosis coli. 4. There is considerable fecal material in the left colon and in the rectum possibly suggesting constipation. 5. Lumbar degenerative disc changes. Assessment & Plan - Diagnosis (1) Sepsis associated hypotension Is this a current diagnosis for this admission?: Yes Plan: Likely 2/2 to urinary source Has been on p.o. antibiotics for UTI outpatient Blood culture and urine culture thus far negative to date Continue ceftriaxone If blood culture remains negative she may be discharged home in am (2) Hypotension Qualifiers: Hypotension type: other hypotension type Qualified Code(s): I95.89 - Other hypotension Is this a current diagnosis for this admission?: Yes Plan: Resolved Holding home antihypertensive May need to continue to hold home BP medication on discharge (3) Advanced dementia Is this a current diagnosis for this admission?: Yes Plan: Continue home regimen (4) Hyperlipidemia Is this a current diagnosis for this admission?: Yes Plan: Continue statin (5) Hypothyroidism Qualifiers: Hypothyroidism type: acquired Qualified Code(s): E03.9 - Hypothyroidism, unspecified Is this a current diagnosis for this admission?: Yes Plan: Continue Synthroid (6) DVT prophylaxis Is this a current diagnosis for this admission?: Yes Plan: On Lovenox - Time Time Spent with patient: 25-34 minutes Anticipated discharge: Home Within: within 24 hours
[2017-06-17] MEDS ORDERED: QUETIAPINE FUMARATE 25 MG TABLET PO SCH (22:00)
[2017-06-18] MEDS: LANSOPRAZOLE 15 MG TAB.RAP.DR PO SCH (05:23)
[2017-06-18] MEDS: FERROUS SULFATE 325 MG TABLET PO SCH (08:53)
[2017-06-18] MEDS: RIVASTIGMINE TARTRATE 1.5 MG CAPSULE PO SCH (09:13)
[2017-06-18] MEDS: CEFTRIAXONE 1 GM/D5W RTU 1 GM/50 ML RTUPB IV SCH (09:13)
[2017-06-18] MEDS: SUCRALFATE 1 GM TABLET PO SCH (09:14)
[2017-06-18] MEDS: SERTRALINE HCL 50 MG TABLET PO SCH (09:14)
[2017-06-18] MEDS: ENOXAPARIN SODIUM INJ 30 MG/0.3 ML DISP.SYRIN SUBCUT SCH (09:15)
[2017-06-18] MEDS: PT OWN MED (POM) PO SCH (09:17)
[2017-06-18 11:50] VITALS: BP 111/67
--- NOTE | 2017-06-18 12:24 | PDOC DISCHARGE SUMMARY ---
General - Admit/Disc Date/PCP Admission Date/Primary Care Provider: 06/15/17 18:21 [place] MD Discharge Date: 06/18/17 - Discharge Diagnosis (1) Sepsis associated hypotension Is this a current diagnosis for this admission?: Yes (2) Urinary tract infection Is this a current diagnosis for this admission?: Yes (3) Hypotension Is this a current diagnosis for this admission?: Yes (4) Advanced dementia Is this a current diagnosis for this admission?: Yes (5) Hyperlipidemia Is this a current diagnosis for this admission?: Yes (6) Hypothyroidism Is this a current diagnosis for this admission?: Yes (7) DVT prophylaxis Is this a current diagnosis for this admission?: Yes - Additional Information Discharge Activity: Activity As Tolerated Home Medications: Divalproex Sodium [Divalproex Sodium ER] 750 mg PO QHS 06/15/17 Ferrous Sulfate [Feosol 325 mg Tablet] 325 mg PO [id number] 06/15/17 Levothyroxine Sodium [Synthroid 0.1 mg Tablet] 0.1 mg PO DAILY 06/15/17 Lorazepam [Ativan 1 mg Tablet] 1 mg PO Q12HP PRN 06/15/17 Memantine HCl [Namenda Xr] 28 mg PO DAILY 06/15/17 Omeprazole 20 mg PO DAILY 06/15/17 Pravastatin Sodium [Pravachol] 40 mg PO DAILY 06/15/17 Quetiapine Fumarate [Seroquel 25 mg Tablet] 25 mg PO QHS 06/15/17 Rivastigmine Tartrate [Rivastigmine] 3 mg PO Q12 06/15/17 Sertraline HCl [Zoloft] 150 mg PO DAILY 06/15/17 Sucralfate [Carafate 1 gm Tablet] 1 gm PO Q12 06/15/17 Tramadol HCl [Ultram 50 mg Tablet] 50 mg PO Q12HP PRN 06/15/17 Levofloxacin [Levaquin 500 mg Tablet] 500 mg PO DAILY #1 tablet 06/18/17 Lisinopril 5 mg PO DAILY #30 tablet 06/18/17 Quetiapine Fumarate [Seroquel 25 mg Tablet] 25 mg PO QHS tablet 06/18/17 History of Present Illness History of Present Illness: Patient is a 76-year-old woman with history of advanced dementia, hyperlipidemia, hypothyroidism, seizure disorder was brought to the emergency room to be evaluated early today for possible seizure activity. She is mostly nonverbal and history was obtained from the caregiver at bedside. Earlier today home while she was getting to get a bath, caregiver noted that she started gurgling and shaking, she decided to call the EMS. On EMS arrival she was found to be hypotensive with systolic blood pressure 62 and diastolic of 44. Blood sugar 115. She was given IV fluid by EMS with improvement of her blood pressure systolic of 90. The caregiver reported about a week ago she was given antibiotics doxycycline for UTI and she had 3 pills left. She does mumbles at times but otherwise, she has not offered any complaint per the caregiver. No sign of coughing, no reports of vomiting abdominal pain no diarrhea. She does take a few steps with assist but mostly not mobile. She lives with her son. Hospitalist consulted for admission for possible sepsis along with UTI. Hospital Course Hospital Course: Patient is a 76-year-old woman with history of advanced dementia, hyperglycemia, hypothyroidism, seizure disorder was brought to the emergency room to be evaluated on 06/15/2017 for possible seizure activity. She is mostly nonverbal and history obtained from the caregiver at bedside on admission. On the day of admission, while she was getting a bath, the caregiver noted that she started gurgling and shaking, she decided to call the EMS. On EMS arrival she was found to be hypotensive with systolic blood pressure 62 and diastolic of 44. Lactic acid was noted to be 4.6 and resolved. Blood sugar 115. She was given IV fluid by EMS with improvement of her blood pressure in ED. About a week ago she was given antibiotic for UTI which she did not completely, she had about 3 pills left. Started on ceftriaxone this admission. Blood and urine culture remain negative. She has been afebrile and she probably has been partially treated. She was on lisinopril 20 mg p.o. daily which has been held since admission and last few reading [id number], therefore she was only resume on lisinopril 5 mg p.o. daily. Have instructed the son to keep a log of her blood pressure for her PCP for further management. Received 4 days of ceftriaxone and she will be given additional day of Levaquin for 5 days. She does have a caregiver and the son helps care for her in the evening. She is being discharged home for further management and follow-up with PCP. Physical Exam Vital Signs: Temp Pulse Resp BP Pulse Ox 97.7 F 67 18 146/72 H 93 06/18/17 08:00 06/18/17 08:00 06/18/17 08:00 06/18/17 08:00 06/18/17 08:00 Intake & Output 06/17/17 06/18/17 06/19/17 06:59 06:59 06:59 Intake Total 2163 2176 Output Total 400 Balance 1763 2176 Weight 67 kg General appearance: PRESENT: no acute distress, other - pleasant demented elderly woman Head exam: PRESENT: atraumatic, normocephalic Eye exam: PRESENT: EOMI Mouth exam: PRESENT: moist, neck supple Neck exam: PRESENT: full ROM Respiratory exam: PRESENT: clear to auscultation lyssa, symmetrical, unlabored. ABSENT: accessory muscle use Cardiovascular exam: PRESENT: RRR, +S1, systolic murmur GI/Abdominal exam: PRESENT: normal bowel sounds, soft. ABSENT: distended, tenderness Rectal exam: PRESENT: deferred Extremities exam: PRESENT: full ROM. ABSENT: pedal edema Musculoskeletal exam: PRESENT: full ROM Neurological exam: PRESENT: alert, awake, other - demented Psychiatric exam: PRESENT: appropriate affect Skin exam: PRESENT: dry, warm Results Laboratory Results: 06/16/17 04:05 06/16/17 04:05 Impressions: Chest X-Ray 06/15/17 15:38 IMPRESSION: Minimal right basilar bandlike atelectasis. Stable mild cardiomegaly. Limited or Localized CT 06/15/17 17:00 IMPRESSION: 1. There are 2 prominent hepatic cysts. 2. No urinary pathology is seen. 3. There is diverticulosis coli. 4. There is considerable fecal material in the left colon and in the rectum possibly suggesting constipation. 5. Lumbar degenerative disc changes. Qualifiers PATEINT BEING DISCHARGED WITH ANY OF THE FOLLOWING DIAGNOSIS?: No Plan Time Spent: Greater than 30 Minutes
== END 2017-06-18 14:50 | disposition home or self-care (01) | DRG 872 ==
LOC: ER 14:56 → UNDOADMIN 18:10 → EH 18:10 → 4W 18:21 → EH 18:46
PROVIDERS: ADMIT Internal Medicine; ATTEND Internal Medicine
DX: A41.9 Sepsis, unspecified organism (principal); N39.0 Urinary tract infection, site not specified; E03.9 Hypothyroidism, unspecified; G30.9 Alzheimer's disease, unspecified; I10 Essential (primary) hypertension; F02.80 Dementia in other diseases classified elsewhere, unspecified severity, without behavioral disturbance, psychotic disturbance, mood disturbance, and anxiety; E86.0 Dehydration; G40.909 Epilepsy, unspecified, not intractable, without status epilepticus; K21.9 Gastro-esophageal reflux disease without esophagitis; F03.90 Unspecified dementia, unspecified severity, without behavioral disturbance, psychotic disturbance, mood disturbance, and anxiety; E87.6 Hypokalemia; E78.5 Hyperlipidemia, unspecified; Z79.899 Other long term (current) drug therapy; R73.9 Hyperglycemia, unspecified
CPT/HCPCS: 36415; 51702; 71010; 76380; 80048; 80053; 80164; 81001; 83605; 83735; 85025; 87040; 87086; 93005; 93010; 96365; 99285; J0696; J1650; J3490; J7030; J7040

== ENCOUNTER 2017-08-14 20:56 | Emergency (ER) | payer MEDICARE ==
--- NOTE | 2017-08-14 22:32 | ER Document Report ---
ED Medical Screen (RME) - General Chief Complaint: Fever Stated Complaint: FEVER Time Seen by Provider: 08/14/17 22:22 Notes: Patient is a 76-year-old decreased activity, decreased appetite, family states she has been sitting in her chair and has more difficulty getting up, they also state she had a low-grade fever earlier today at 100.5. No vomiting, no coughing, no complaints. Patient has a history of Alzheimer's. They are unable to tell me any other medical history other than history of frequent UTIs. Patient unable to give me any history with her Alzheimer's. TRAVEL OUTSIDE OF THE [place] IN LAST 30 DAYS: No - Related Data Allergies/Adverse Reactions: No Known Allergies Allergy (Verified 06/15/17 15:12) Past Medical History - Past Medical History Cardiac Medical History: Reports: Hx Hypertension Renal/ Medical History: Denies: Hx Peritoneal Dialysis GI Medical History: Reports: Hx Gastroesophageal Reflux Disease Psychiatric Medical History: Reports: Hx Dementia, Hx Depression - Immunizations Hx Diphtheria, Pertussis, Tetanus Vaccination: Yes History of Influenza Vaccine for 05/2017 - 10/2017 Season: Yes Physical Exam - Vital signs Vitals: Temp Pulse Resp BP Pulse Ox 98.3 F 93 16 90/57 L 95 08/14/17 21:20 08/14/17 21:20 08/14/17 21:20 08/14/17 21:20 08/14/17 21:20 - General General appearance: Appears well In distress: None Course - Re-evaluation Re-evalutation: Initially concern for sepsis with shock with hypotension, however the first blood pressure was taken through patient's clothing, I took off her sweatshirt and took her blood pressure on her arm and her blood pressure is 140s systolic with a normal map. No tachycardia, no current fever, patient is smiling at me. Workup pending. - Vital Signs Vital signs: Temp Pulse Resp BP Pulse Ox 98.3 F 93 16 140/83 H 95 08/14/17 21:20 08/14/17 21:20 08/14/17 21:20 08/14/17 22:27 08/14/17 21:20
[2017-08-14 22:59] LABS: ABSOLUTE EOSINOPHILS # (AUTO) 0.4 10^3/uL (0.0-0.6); ABSOLUTE LYMPHOCYTES (AUTO) 1.6 10^3/uL (0.5-4.7); ABSOLUTE MONOCYTES (AUTO) 1.4 10^3/uL (0.1-1.4); ABSOLUTE NEUT (AUTO) 5.7 10^3/uL (1.7-8.2); BASOPHILS % (AUTO) 0.5 % (0-2); EOSINOPHILS % (AUTO) 4.8 % (0-6); HEMATOCRIT 38.7 % (36.0-47.0); MEAN CORPUSCULAR HEMOGLOBIN 29.8 pg (27.0-33.4); MEAN CORPUSCULAR HGB CONC 33.5 g/dL (32.0-36.0); MEAN CORPUSCULAR VOLUME 89 fl (80-97); MONOCYTES % (AUTO) 15.5 % (3-13); PLATELET COUNT 231 10^3/uL (150-450); RED BLOOD COUNT 4.36 10^6/uL (3.72-5.28); RED CELL DISTRIBUTION WIDTH 14.2 % (11.5-14.0); SEGMENTED NEUTROPHILS % (AUTO) 62.2 % (42-78); TOTAL CELLS COUNTED % (AUTO) 100 %; WHITE BLOOD COUNT 9.2 10^3/uL (4.0-10.5)
[2017-08-14 23:04] LABS: ALBUMIN 4.1 g/dL (3.5-5.0); ANION GAP 11 (5-19); BILIRUBIN,DIRECT 0.2 mg/dL (0.0-0.4); BILIRUBIN,TOTAL 0.2 mg/dL (0.2-1.3); BLOOD UREA NITROGEN 21 mg/dL (7-20); CARBON DIOXIDE 26 mmol/L (22-30); CHLORIDE 102 mmol/L (98-107); POTASSIUM 4.5 mmol/L (3.6-5.0); SODIUM 139.3 mmol/L (137-145); TOTAL PROTEIN 7.4 g/dL (6.3-8.2)
[2017-08-14 23:05] LABS: ALANINE AMINOTRANSFERASE 15 U/L (9-52); ALKALINE PHOSPHATASE 51 U/L (38-126); ASPARTATE AMINO TRANSFERASE 13 U/L (14-36); CALCIUM 9.3 mg/dL (8.4-10.2); GLUCOSE 103 mg/dL (75-110)
--- NOTE | 2017-08-15 00:23 | RADIOLOGY REPORT (SQ) ---
EXAM DESCRIPTION: CHEST SINGLE VIEW CLINICAL HISTORY: fever COMPARISON: 06/15/2017 FINDINGS: Single frontal view of the chest. Atherosclerotic calcification and tortuosity of thoracic aorta. Heart is not enlarged. Leads overlie the chest. No consolidation, pneumothorax, or pleural effusion. No displaced rib fractures identified. Upper abdominal soft tissues are unremarkable. IMPRESSION: 1. No acute pulmonary process identified.
[2017-08-15 00:53] LABS: BILIRUBIN,URINE NEGATIVE (NEGATIVE); COLOR,URINE YELLOW; GLUCOSE, URINE NEGATIVE (NEGATIVE); KETONES,URINE NEGATIVE (NEGATIVE); LEUKOCYTE ESTERASE,URINE LARGE (NEGATIVE); NITRITE,URINE NEGATIVE (NEGATIVE); PROTEIN,URINE 100 mg/dL (NEGATIVE); URINE SPECIFIC GRAVITY 1.017
[2017-08-15 00:55] LABS: APPEARANCE,URINE CLOUDY
[2017-08-15] MEDS ORDERED: CEFTRIAXONE 1 GM/D5W RTU 1 GM/50 ML RTUPB IV ONE ×2 (01:14→01:18)
[2017-08-15] MEDS ORDERED: NORMAL SALINE 1000 ML 1,000 ML IV ONE (01:14)
--- NOTE | 2017-08-15 01:27 | ER Document Report ---
ED General - General Chief Complaint: Fever Stated Complaint: FEVER Time Seen by Provider: 08/14/17 22:22 Cannot obtain history due to: Dementia Notes: Patient is a 76-year-old woman with a past medical history of profound dementia who presents with increased generalized weakness relative to baseline. Patient is mute. Her son at the bedside reports that he notices that she seems to be less able to sit up in bed when she tends to get urinary tract infections and this is what she has been doing for the past 2 days. She also spiked a fever at home today with to 100.5. They have not done anything to treat her symptoms. Nothing seems to worsen her symptoms. She has not had any vomiting, diarrhea, or lethargy. TRAVEL OUTSIDE OF THE [place] IN LAST 30 DAYS: No - Related Data Allergies/Adverse Reactions: No Known Allergies Allergy (Verified 06/15/17 15:12) Past Medical History - General Information source: Relative Cannot obtain history due to: Dementia - Social History Smoking Status: Former Smoker Chew tobacco use (# tins/day): No Frequency of alcohol use: None Drug Abuse: None Lives with: Family Family History: Reviewed & Not Pertinent Patient has suicidal ideation: No Patient has homicidal ideation: No - Past Medical History Cardiac Medical History: Reports: Hx Hypertension Renal/ Medical History: Denies: Hx Peritoneal Dialysis GI Medical History: Reports: Hx Gastroesophageal Reflux Disease Psychiatric Medical History: Reports: Hx Dementia, Hx Depression Past Surgical History: Reports: Hx Hysterectomy, Hx Orthopedic Surgery - carpal tunnel - Immunizations Hx Diphtheria, Pertussis, Tetanus Vaccination: Yes Review of Systems - Review of Systems -: Yes ROS unobtainable due to patient's medical condition Physical Exam - Vital signs Vitals: Temp Pulse Resp BP Pulse Ox 98.3 F 93 16 90/57 L 95 08/14/17 21:20 08/14/17 21:20 08/14/17 21:20 08/14/17 21:20 08/14/17 21:20 Interpretation: Hypotensive Notes: PHYSICAL EXAMINATION: GENERAL: Appears to be in no discomfort, does not respond to questions HEAD: Atraumatic, normocephalic. EYES: Pupils equal round and reactive to light, extraocular movements intact, sclera anicteric, conjunctiva are normal. ENT: nares patent, oropharynx clear without exudates. Moist mucous membranes. NECK: Normal range of motion, supple without lymphadenopathy LUNGS: Breath sounds clear to auscultation bilaterally and equal. No wheezes rales or rhonchi. HEART: Regular rate and rhythm without murmurs ABDOMEN: Soft, nontender, normoactive bowel sounds. No guarding, no rebound. No masses appreciated. EXTREMITIES: no pitting or edema. No cyanosis. NEUROLOGICAL: No focal neurological deficits. Moves all extremities spontaneously. PSYCH: Nonverbal SKIN: Warm, Dry, normal turgor, no rashes or lesions noted. Course - Re-evaluation Re-evalutation: 08/15/17 01:26 Patient is a 76-year-old female very demented who presents with concerns of increased weakness at home. Apparently she had a fever to 100.5 at home prior to arrival. On presentation patient is in no acute distress, vitals within normal limits. Initial hypotension did resolve spontaneously. Labs show no acute abnormalities. No evidence of renal dysfunction or significant leukocytosis. No tachycardia. Patient does not meet sepsis criteria at this time. IV fluids and IV ceftriaxone will be administered. Family requested observation in the hospital. Discussed with who agrees patient does not meet admission criteria at this time. At this time will discharge with return precautions and follow-up recommendations. Verbal discharge instructions given a the bedside and opportunity for questions given. Medication warnings reviewed. Son is in agreement with this plan and has verbalized understanding of return precautions and the need for primary care follow-up in the next 24-72 hours. - Vital Signs Vital signs: Temp Pulse Resp BP Pulse Ox 98.3 F 93 20 139/88 H 94 08/14/17 21:20 08/14/17 21:20 08/15/17 02:01 08/15/17 02:01 08/15/17 02:01 - Laboratory Result Diagrams: 08/14/17 22:35 08/14/17 22:35 Laboratory results interpreted by me: 08/14/17 08/14/17 08/15/17 22:35 22:35 00:25 RDW 14.2 H Monocytes % 15.5 H BUN 21 H AST 13 L Urine Protein 100 H Urine Blood LARGE H Urine Urobilinogen 2.0 H Ur Leukocyte Esterase LARGE H Discharge - Discharge Clinical Impression: Advanced dementia Urinary tract infection Qualifiers: Urinary tract infection type: acute pyelonephritis Qualified Code(s): N10 - Acute pyelonephritis Condition: Good Disposition: HOME, SELF-CARE Additional Instructions: You have been diagnosed with a condition called pyelonephritis which is an infection involving your kidneys and bladder. You have been given a dose of antibiotics here in the emergency department to help begin to treat this infection. Your also being sent home on antibiotics. Please start taking these later on today when you fill the prescription. Complete the course even if you feel better. Please return if you have persistent vomiting, pass out, have worsening pain, become unable to tolerate fluids, or have any other symptoms that are concerning to you. Please follow-up with your primary care physician in the next 24-48 hours. Prescriptions: Cephalexin Monohydrate [Keflex 500 mg Capsule] 500 mg PO Q6H 7 Days capsule Referrals: POLA JACOBS PA [Primary Care Provider] - Follow up as needed
[2017-08-15 02:25] VITALS: BP 139/88
== END 2017-08-15 02:24 | disposition home or self-care (01) ==
LOC: ER 20:56
DX: N10 Acute pyelonephritis (principal); F03.90 Unspecified dementia, unspecified severity, without behavioral disturbance, psychotic disturbance, mood disturbance, and anxiety; R50.9 Fever, unspecified; R53.1 Weakness; I10 Essential (primary) hypertension; Z90.710 Acquired absence of both cervix and uterus
CPT/HCPCS: 99284; 51701; 96365; 36415; 87086; 85025; 87088; 80053; 81001; 87186; 71045; J7030; J0696

== ENCOUNTER 2017-12-05 19:24 | Inpatient (IN) | payer MEDICARE ==
--- NOTE | 2017-12-05 19:46 | ER Document Report ---
ED General - General Stated Complaint: ALTERED MENTAL STATUS Time Seen by Provider: 12/05/17 19:31 Mode of Arrival: Ambulatory Information source: Patient Notes: 76-year-old female history of dementia presents from care facility with concerns for altered mental status, they note that the patient is demented but she is not acting at her baseline, no such explanation was provided as to the specifics of this confusion Patient herself denies any complaints however abdominal pain is noted upon palpation TRAVEL OUTSIDE OF THE [place] IN LAST 30 DAYS: No - HPI Onset: Just prior to arrival Onset/Duration: Sudden Quality of pain: No pain Severity: Mild Pain Level: Denies Associated symptoms: Other Exacerbated by: Denies Relieved by: Denies Similar symptoms previously: No Recently seen / treated by doctor: No - Related Data Allergies/Adverse Reactions: No Known Allergies Allergy (Verified 06/15/17 15:12) Past Medical History - Social History Smoking Status: Never Smoker Cigarette use (# per day): No Chew tobacco use (# tins/day): No Smoking Education Provided: No Family History: Reviewed & Not Pertinent - Past Medical History Cardiac Medical History: Reports: Hx Hypertension Renal/ Medical History: Denies: Hx Peritoneal Dialysis GI Medical History: Reports: Hx Gastroesophageal Reflux Disease Psychiatric Medical History: Reports: Hx Dementia, Hx Depression Past Surgical History: Reports: Hx Hysterectomy, Hx Orthopedic Surgery - carpal tunnel - Immunizations Hx Diphtheria, Pertussis, Tetanus Vaccination: Yes Review of Systems - Review of Systems Notes: REVIEW OF SYSTEMS: CONSTITUTIONAL : Denies fever, chills, or sweats. Denies recent illness. EENT: Denies eye, ear, throat, or mouth pain or symptoms. Denies nasal or sinus congestion or discharge. Denies throat, tongue, or mouth swelling or difficulty swallowing. CARDIOVASCULAR: Denies chest pain. Denies palpitations or racing or irregular heart beat. Denies ankle edema. RESPIRATORY: Denies cough, cold, or chest congestion. Denies shortness of breath, difficulty breathing, or wheezing. GASTROINTESTINAL: Denies abdominal pain or distention. Denies nausea, vomiting , or diarrhea. Denies blood in vomitus, stools, or per rectum. Denies black, tarry stools. Denies constipation. GENITOURINARY: Denies difficulty urinating, painful urination, burning, frequency, blood in urine, or discharge. FEMALE GENITOURINARY: Denies vaginal bleeding, heavy or abnormal periods, irregular periods. Denies vaginal discharge or odor. MUSCULOSKELETAL: Denies back or neck pain or stiffness. Denies joint pain or swelling. SKIN: Denies rash, lesions or sores. HEMATOLOGIC : Denies easy bruising or bleeding. LYMPHATIC: Denies swollen, enlarged glands. NEUROLOGICAL: Confusion per facility PSYCHIATRIC: Denies anxiety or stress. Denies depression, suicidal ideation, or homicidal ideation. ALL OTHER SYSTEMS REVIEWED AND NEGATIVE. PHYSICAL EXAMINATION: GENERAL: Well-appearing, well-nourished and in no acute distress. HEAD: Atraumatic, normocephalic. EYES: Pupils equal round and reactive to light, extraocular movements intact, conjunctiva are normal. ENT: Nares patent, oropharynx clear without exudates. Moist mucous membranes. NECK: Normal range of motion, supple without lymphadenopathy LUNGS: Breath sounds clear to auscultation bilaterally and equal. No wheezes rales or rhonchi. HEART: Mild tachycardia noted ABDOMEN: firm, probable constipation Female : deferred Musculoskeletal: Normal range of motion, no pitting or edema. No cyanosis. NEUROLOGICAL: Cranial nerves grossly intact. Normal speech, normal gait. Normal sensory, motor exams PSYCH: Normal mood, normal affect. SKIN: Warm, Dry, normal turgor, no rashes or lesions noted. Dictation was performed using [employer] voice recognition software Physical Exam - Vital signs Vitals: Resp Pulse Ox 22 H 96 12/05/17 19:48 12/05/17 19:48 Course - Re-evaluation Re-evalutation: 12/05/17 19:53 Patient's presentation is a bit confusing as she is demented at baseline, she is noted to be mildly tachycardic abdomen is firm but not distended I believe it is more constipation related when we attempted to get a temperature rectally large amount stool was noted at the rectum as well CT is pending lab work as well 12/05/17 23:14 After fecal decompression was performed, patient was stable, I was preparing her discharge when the nurse alerted me that the patient became hypoxic and they believe that she may have vomited and aspirated, chest x-ray performed does not note any significant abnormalities however given the crackles at the right base now and the requirement for oxygenation I will start Unasyn and admitted to the hospitalist service - Vital Signs Vital signs: Temp Pulse Resp BP Pulse Ox 23 H 155/86 H 97 12/05/17 21:00 12/05/17 20:01 12/05/17 20:01 - Laboratory Result Diagrams: 12/05/17 19:55 12/05/17 19:55 Laboratory results interpreted by me: 12/05/17 12/05/17 12/05/17 19:42 19:55 19:55 Monocytes % 15.3 H Sodium 150.3 H Carbon Dioxide 31 H Glucose 123 H POC Glucose 126 H Urine Protein Urine Ketones Urine Blood Urine Urobilinogen 12/05/17 20:42 Monocytes % Sodium Carbon Dioxide Glucose POC Glucose Urine Protein 100 H Urine Ketones TRACE H Urine Blood LARGE H Urine Urobilinogen 4.0 H - Diagnostic Test Radiology reviewed: Image reviewed, Reports reviewed Procedures - Additional Procedures fecal decompaction Time performed: 22:00 - large amount of hard stool Discharge - Discharge Clinical Impression: Fecal impaction Aspiration pneumonia Qualifiers: Aspiration pneumonia type: unspecified Laterality: right Lung location: lower lobe of lung Qualified Code(s): J69.0 - Pneumonitis due to inhalation of food and vomit Condition: Stable Disposition: HOME, SELF-CARE Referrals: POLA JACOBS PA [Primary Care Provider] - Follow up in 3-5 days
[2017-12-05 20:10] LABS: VENOUS BLOOD BASE EXCESS 3.6 mmol/L; VENOUS BLOOD HCO3 29.2 mmol/L (20-32); VENOUS BLOOD PCO2 48.4 mmHg (35-63); VENOUS BLOOD PH 7.4 (7.30-7.42)
[2017-12-05 20:12] LABS: ABSOLUTE EOSINOPHILS # (AUTO) 0.1 10^3/uL (0.0-0.6); ABSOLUTE LYMPHOCYTES (AUTO) 1.6 10^3/uL (0.5-4.7); ABSOLUTE MONOCYTES (AUTO) 1.4 10^3/uL (0.1-1.4); ABSOLUTE NEUT (AUTO) 6.1 10^3/uL (1.7-8.2); BASOPHILS % (AUTO) 0.3 % (0-2); EOSINOPHILS % (AUTO) 0.9 % (0-6); HEMATOCRIT 39.1 % (36.0-47.0); HEMOGLOBIN 13.4 g/dL (12.0-15.5); LYMPHOCYTES % (AUTO) 17.3 % (13-45); MEAN CORPUSCULAR HEMOGLOBIN 30.5 pg (27.0-33.4); MEAN CORPUSCULAR HGB CONC 34.2 g/dL (32.0-36.0); MEAN CORPUSCULAR VOLUME 89 fl (80-97); MONOCYTES % (AUTO) 15.3 % (3-13); PLATELET COUNT 272 10^3/uL (150-450); RED BLOOD COUNT 4.38 10^6/uL (3.72-5.28); RED CELL DISTRIBUTION WIDTH 13.9 % (11.5-14.0); SEGMENTED NEUTROPHILS % (AUTO) 66.2 % (42-78); TOTAL CELLS COUNTED % (AUTO) 100 %; WHITE BLOOD COUNT 9.3 10^3/uL (4.0-10.5)
--- NOTE | 2017-12-05 20:14 | RADIOLOGY REPORT (SQ) ---
EXAM DESCRIPTION: CHEST SINGLE VIEW COMPLETED DATE/TIME: 12/05/2017 8:03 pm REASON FOR STUDY: weakness COMPARISON: 08/25/2017 EXAM PARAMETERS: NUMBER OF VIEWS: One view. TECHNIQUE: Single frontal radiographic view of the chest acquired. RADIATION DOSE: NA LIMITATIONS: None. FINDINGS: LUNGS AND PLEURA: Mild chronic interstitial changes are suggested. There is no infiltrate or effusion. There is no mass. MEDIASTINUM AND HILAR STRUCTURES: No masses. Contour normal. HEART AND VASCULAR STRUCTURES: Heart normal in size. Normal vasculature. BONES: No acute findings. HARDWARE: None in the chest. OTHER: No other significant finding. IMPRESSION: Mild chronic lung changes with no acute cardiopulmonary disease. TECHNICAL DOCUMENTATION: JOB ID: [id number] [email or web address]- All Rights Reserved Reading location - IP/workstation name: [email or web address]
[2017-12-05 20:23] LABS: INTERNATIONAL RATION (INR) 0.95; PROTHROMBIN TIME 13.1 SEC (11.4-15.4)
[2017-12-05 20:30] LABS: ALANINE AMINOTRANSFERASE 15 U/L (9-52); ALBUMIN 3.5 g/dL (3.5-5.0); ALKALINE PHOSPHATASE 40 U/L (38-126); ANION GAP 13 (5-19); ASPARTATE AMINO TRANSFERASE 20 U/L (14-36); BILIRUBIN,DIRECT 0.3 mg/dL (0.0-0.4); BILIRUBIN,TOTAL 0.3 mg/dL (0.2-1.3); BLOOD UREA NITROGEN 19 mg/dL (7-20); CALCIUM 9.4 mg/dL (8.4-10.2); CARBON DIOXIDE 31 mmol/L (22-30); CHLORIDE 106 mmol/L (98-107); GLUCOSE 123 mg/dL (75-110); SODIUM 150.3 mmol/L (137-145); TOTAL PROTEIN 7.1 g/dL (6.3-8.2)
[2017-12-05 21:03] LABS: AMORPHOUS SEDIMENT,URINE TRACE /HPF; APPEARANCE,URINE SLIGHTLY-CLOUDY; BILIRUBIN,URINE NEGATIVE (NEGATIVE); COLOR,URINE YELLOW; GLUCOSE, URINE NEGATIVE (NEGATIVE); KETONES,URINE TRACE mg/dL (NEGATIVE); LEUKOCYTE ESTERASE,URINE NEGATIVE (NEGATIVE); NITRITE,URINE NEGATIVE (NEGATIVE); PROTEIN,URINE 100 mg/dL (NEGATIVE); URINE SPECIFIC GRAVITY 1.023
[2017-12-05] MEDS ORDERED: ONDANSETRON HCL INJ/PF 4 MG/2 ML SDV IV ONE (21:45)
--- NOTE | 2017-12-05 21:55 | RADIOLOGY REPORT (SQ) ---
EXAM DESCRIPTION: CT ABD/PELVIS WITH IV ONLY COMPLETED DATE/TIME: 12/05/2017 9:38 pm REASON FOR STUDY: abd pain COMPARISON: CT renal stone on 06/15/2017 TECHNIQUE: CT scan of the abdomen and pelvis performed using helical scanning technique with dynamic intravenous contrast injection. No oral contrast. Images reviewed with lung, soft tissue, and bone windows. Reconstructed coronal and sagittal MPR images reviewed. Delayed images for evaluation of the urinary system also acquired. All images stored on PACS. All CT scanners at this facility use dose modulation, iterative reconstruction, and/or weight based d osing when appropriate to reduce radiation dose to as low as reasonably achievable (ALARA). [facility]: Dose Right [facility]: CareDose [facility]: Dose Right [facility]: Teradose 4D [facility]: [employer] CONTRAST TYPE AND DOSE: contrast/concentration: Isovue 370.00 mg/ml; Total Contrast Delivered: 100.0 ml; Total Saline Delivered: 40.0 ml RENAL FUNCTION: BUN 19 creatinine 0.55 RADIATION DOSE: CT Rad equipment meets quality standard of care and radiation dose reduction techniq ues were employed. CTDIvol: 10.1 mGy. DLP: 1061 mGy-cm.. LIMITATIONS: None. FINDINGS: LOWER CHEST: No significant findings. No nodules or infiltrates. LIVER: Stable hepatic cysts. Mild intrahepatic ductal dilatation. SPLEEN: Normal size. No focal lesions. PANCREAS: No masses. No significant calcifications. No adjacent inflammation or peripancreatic fluid collections. Pancreatic duct not dilated. GALLBLADDER: Not identified. The mild ductal dilatation suggests possibility of prior cholecystitis. Surgical clips are not seen, however. ADRENAL GLANDS: There is mild thickening of both adrenal glands that is stable. RIGHT KIDNEY AND URETER: No solid masses. No significant calcifications. No hydronephrosis or hyd roureter. LEFT KIDNEY AND URETER: No solid masses. No significant calcifications. No hydronephrosis or hydr oureter. AORTA AND VESSELS: No aneurysm. No dissection. Renal arteries, SMA, celiac without stenosis. RETROPERITONEUM: No retroperitoneal adenopathy, hemorrhage or masses. BOWEL AND PERITONEAL CAVITY: No masses. Numerous descending and sigmoid diverticula are present. Th ere is considerable stool. There is a large amount of stool in the rectum. APPENDIX: Not identified. PELVIS: No mass. No free fluid. Normal bladder. ABDOMINAL WALL: No masses. No hernias. BONES: L4-5 degenerative disc changes. No acute osseous abnormality. Scoliosis. OTHER: No other significant finding. IMPRESSION: 1. Stable hepatic cysts. 2. Mild ductal dilatation suggesting prior cholecystectomy. Surgical clips are not seen, however. 3. Thickening of both adrenal glands that appears stable. 4. Extensive diverticulosis coli with no acute inflammatory changes. 5. Considerable stool. A large amount of stool in the rectum raises the possibility of fecal impact ion. 6. Scoliosis and mild lumbar degenerative disc changes. TECHNICAL DOCUMENTATION: JOB ID: [id number] Quality ID # [id number]: Final reports with documentation of one or more dose reduction techniques (e.g., Au tomated exposure control, adjustment of the mA and/or kV according to patient size, use of iterative reconstruction technique) 2010 [employer]- All Rights Reserved Reading location - IP/workstation name: [email or web address]
--- NOTE | 2017-12-05 23:04 | RADIOLOGY REPORT (SQ) ---
EXAM DESCRIPTION: CHEST SINGLE VIEW COMPLETED DATE/TIME: 12/05/2017 10:49 pm REASON FOR STUDY: aspiration COMPARISON: 12/05/2017 EXAM PARAMETERS: NUMBER OF VIEWS: One view. TECHNIQUE: Single frontal radiographic view of the chest acquired. RADIATION DOSE: NA LIMITATIONS: None. FINDINGS: LUNGS AND PLEURA: No acute opacities, masses or pneumothorax. No pleural effusion. MEDIASTINUM AND HILAR STRUCTURES: Stable. HEART AND VASCULAR STRUCTURES: Stable. BONES: No acute findings. HARDWARE: None in the chest. OTHER: No other significant finding. IMPRESSION: NO ACUTE RADIOGRAPHIC FINDING IN THE CHEST. TECHNICAL DOCUMENTATION: JOB ID: [id number] [place]-72 2010 [employer]- All Rights Reserved Reading location - IP/workstation name: [email or web address]
[2017-12-05] MEDS ORDERED: AMPICILLIN SOD/SULBACTAM 3 GM VIAL IV ONE (23:13)
[2017-12-06] MEDS ORDERED: MAGNESIUM HYDROXIDE SUSP 30 ML UDCUP PO PRN (00:48)
--- NOTE | 2017-12-06 01:08 | PDOC H&P ---
History of Present Illness Admission Date/PCP: ALMA URBANO History of Present Illness: RIGOBERTO VENEGAS is a 76 year old female patient who is a halfway resident brought with chief complaint of altered mental status. Since patient has underlying advanced dementia and cognitive impairment is not source of history. I got brief history from the ER attending notes. As per ER attending note patient is not acting at her baseline and no such explanation was provided as to the specifics of confusion. Her CT of abdomen revealed extensive diverticulosis without diverticulitis and fecal impaction. After ER attending disimpacted her, patient has an episode of vomiting and possibly aspiration. Patient desaturated to lower 80s. Further detailed history could not be obtained. Past Medical History Cardiac Medical History: Reports: Hyperlipidema, Hypertension GI Medical History: Reports: Gastroesophageal Reflux Disease Psychiatric Medical History: Reports: Dementia, Depression Past Surgical History Past Surgical History: Reports: Hysterectomy, Orthopedic Surgery - carpal tunnel Social History Smoking Status: Never Smoker Frequency of Alcohol Use: None Hx Recreational Drug Use: No Drugs: None Hx Prescription Drug Abuse: No Family History Family History: Reviewed & Not Pertinent Parental Family History Reviewed: No Children Family History Reviewed: No Sibling(s) Family History Reviewed.: No - Cognitive impairment Medication/Allergy Home Medications: Divalproex Sodium [Divalproex Sodium ER] 750 mg PO QHS 06/15/17 Ferrous Sulfate [Feosol 325 mg Tablet] 325 mg PO [id number] 06/15/17 Levothyroxine Sodium [Synthroid 0.1 mg Tablet] 0.1 mg PO DAILY 06/15/17 Lorazepam [Ativan 1 mg Tablet] 1 mg PO Q12HP PRN 06/15/17 Memantine HCl [Namenda Xr] 28 mg PO DAILY 06/15/17 Omeprazole 20 mg PO DAILY 06/15/17 Pravastatin Sodium [Pravachol] 40 mg PO DAILY 06/15/17 Quetiapine Fumarate [Seroquel 25 mg Tablet] 25 mg PO QHS 06/15/17 Rivastigmine Tartrate [Rivastigmine] 3 mg PO Q12 06/15/17 Sertraline HCl [Zoloft] 150 mg PO DAILY 06/15/17 Sucralfate [Carafate 1 gm Tablet] 1 gm PO Q12 06/15/17 Tramadol HCl [Ultram 50 mg Tablet] 50 mg PO Q12HP PRN 06/15/17 Levofloxacin [Levaquin 500 mg Tablet] 500 mg PO DAILY #1 tablet 06/18/17 Lisinopril 5 mg PO DAILY #30 tablet 06/18/17 Quetiapine Fumarate [Seroquel 25 mg Tablet] 25 mg PO QHS tablet 06/18/17 Cephalexin Monohydrate [Keflex 500 mg Capsule] 500 mg PO Q6H 7 Days capsule 04/24 Allergies/Adverse Reactions: No Known Allergies Allergy (Verified 06/15/17 15:12) Review of Systems ROS unobtainable: Due to mental status Physical Exam Vital Signs: Temp Pulse Resp BP Pulse Ox 23 H 155/86 H 97 12/05/17 21:00 12/05/17 20:01 12/05/17 20:01 Intake & Output 12/04/17 12/05/17 12/06/17 06:59 06:59 06:59 Weight 56.3 kg General appearance: PRESENT: mild distress Head exam: PRESENT: atraumatic, normocephalic Respiratory exam: PRESENT: crackles Cardiovascular exam: PRESENT: tachycardia Results Laboratory Results: 12/05/17 19:55 12/05/17 19:55 12/05/17 12/05/17 12/05/17 19:55 19:55 19:55 WBC 9.3 RBC 4.38 Hgb 13.4 Hct 39.1 MCV 89 MCH 30.5 MCHC 34.2 RDW 13.9 Plt Count 272 Seg Neutrophils % 66.2 Lymphocytes % 17.3 Monocytes % 15.3 H Eosinophils % 0.9 Basophils % 0.3 Absolute Neutrophils 6.1 Absolute Lymphocytes 1.6 Absolute Monocytes 1.4 Absolute Eosinophils 0.1 Absolute Basophils 0.0 VBG pH VBG pCO2 VBG HCO3 VBG Base Excess Sodium 150.3 H Potassium 4.0 Chloride 106 Carbon Dioxide 31 H Anion Gap 13 BUN 19 Creatinine 0.55 Est GFR ( Amer) > 60 Est GFR (Non-Af Amer) > 60 Glucose 123 H Lactic Acid 2.1 Calcium 9.4 Total Bilirubin 0.3 AST 20 ALT 15 Alkaline Phosphatase 40 Total Protein 7.1 Albumin 3.5 Urine Color Urine Appearance Urine pH Ur Specific [place] Urine Protein Urine Glucose (UA) Urine Ketones Urine Blood Urine Nitrite Ur Leukocyte Esterase Urine WBC (Auto) Urine RBC (Auto) 12/05/17 12/05/17 12/05/17 19:55 20:42 23:51 WBC RBC Hgb Hct MCV MCH MCHC RDW Plt Count Seg Neutrophils % Lymphocytes % Monocytes % Eosinophils % Basophils % Absolute Neutrophils Absolute Lymphocytes Absolute Monocytes Absolute Eosinophils Absolute Basophils VBG pH 7.40 VBG pCO2 48.4 VBG HCO3 29.2 VBG Base Excess 3.6 Sodium Potassium Chloride Carbon Dioxide Anion Gap BUN Creatinine Est GFR ( Amer) Est GFR (Non-Af Amer) Glucose Lactic Acid 0.8 Calcium Total Bilirubin AST ALT Alkaline Phosphatase Total Protein Albumin Urine Color YELLOW Urine Appearance SLIGHTLY-CLOUDY Urine pH 5.0 Ur Specific [place] 1.023 Urine Protein 100 H Urine Glucose (UA) NEGATIVE Urine Ketones TRACE H Urine Blood LARGE H Urine Nitrite NEGATIVE Ur Leukocyte Esterase NEGATIVE Urine WBC (Auto) 5 Urine RBC (Auto) >182 Impressions: Abdomen/Pelvis CT 12/05/17 19:46 IMPRESSION: 1. Stable hepatic cysts. 2. Mild ductal dilatation suggesting prior cholecystectomy. Surgical clips are not seen, however. 3. Thickening of both adrenal glands that appears stable. 4. Extensive diverticulosis coli with no acute inflammatory changes. 5. Considerable stool. A large amount of stool in the rectum raises the possibility of fecal impaction. 6. Scoliosis and mild lumbar degenerative disc changes. Chest X-Ray 12/05/17 22:24 IMPRESSION: NO ACUTE RADIOGRAPHIC FINDING IN THE CHEST. Assessment & Plan - Diagnosis (1) Aspiration pneumonia Qualifiers: Aspiration pneumonia type: due to vomit Laterality: right Lung location: lower lobe of lung Qualified Code(s): J69.0 - Pneumonitis due to inhalation of food and vomit Is this a current diagnosis for this admission?: Yes Plan: Patient has been started on clindamycin. (2) Hyperlipidemia Qualifiers: Hyperlipidemia type: unspecified Qualified Code(s): E78.5 - Hyperlipidemia , unspecified Is this a current diagnosis for this admission?: Yes Plan: We will hold it until she is evaluated by speech therapist (3) Hypothyroidism Qualifiers: Hypothyroidism type: acquired Qualified Code(s): E03.9 - Hypothyroidism, unspecified Is this a current diagnosis for this admission?: Yes Plan: I will change to IV Synthroid - Time Time Spent: 30 to 50 Minutes - Inpatient Certification Medical Necessity: Need for IV Antibiotics
[2017-12-06] MEDS ORDERED: LEVETIRACETAM 500 MG/NACL-ISO 500 MG/100 ML RTUPB IV ONE (03:15)
[2017-12-06] MEDS ORDERED: NORMAL SALINE 1000 ML 1,000 ML IV PRN (04:48)
[2017-12-06] MEDS: CLINDAMYCIN 600 MG/D5W RTU 600 MG/50 ML RTUPB IV SCH ×2 (06:16→13:19)
[2017-12-06] MEDS: LANSOPRAZOLE 30 MG TAB.RAP.DR PO SCH (06:18)
--- NOTE | 2017-12-06 09:09 | EKG REPORT ---
SEVERITY:- ABNORMAL ECG - SINUS TACHYCARDIA CONSIDER LEFT VENTRICULAR HYPERTROPHY : Confirmed by: Mauricio Randall 06-Dec-2017 09:08:45
[2017-12-06] MEDS ORDERED: LEVOTHYROXINE SODIUM INJ/PF 0.1 MG SDV IV SCH (10:00)
[2017-12-06] MEDS ORDERED: DOCUSATE SODIUM 100 MG CAPSULE PO SCH (10:00)
[2017-12-06] MEDS: ENOXAPARIN SODIUM INJ 40 MG/0.4 ML DISP.SYRIN SUBCUT SCH (13:19)
[2017-12-06] MEDS ORDERED: MORPHINE SULFATE 10 MG/ML INJ IV PRN (16:02)
--- NOTE | 2017-12-06 16:04 | PDOC PROGRESS REPORT ---
Subjective Progress Note for:: 12/06/17 Subjective:: And patient very somnolent very difficult to arouse. Nurse reported the patient 's son called and notified that patient had been at the [facility] facility for 10 days and that she suffers from pneumonia. Review of systems Unable to obtain due to patient's mental status All significant diagnostics and laboratories have been reviewed Reason For Visit: ASPIRATION PNEUMONIA, CONSTIPATION Physical Exam Vital Signs: Temp Pulse Resp BP Pulse Ox 15 101/83 99 12/06/17 05:09 12/06/17 05:09 12/06/17 05:09 Intake & Output 12/05/17 12/06/17 12/07/17 06:59 06:59 06:59 Weight 65.2 kg General appearance: PRESENT: other - Patient difficult to arouse Head exam: PRESENT: atraumatic, normocephalic Eye exam: PRESENT: conjunctiva pink, EOMI, PERRLA Mouth exam: PRESENT: moist Neck exam: ABSENT: JVD, lymphadenopathy, tenderness Respiratory exam: PRESENT: clear to auscultation lyssa Cardiovascular exam: PRESENT: RRR. ABSENT: diastolic murmur, systolic murmur GI/Abdominal exam: PRESENT: normal bowel sounds, soft, tenderness Extremities exam: ABSENT: pedal edema Musculoskeletal exam: ABSENT: ambulatory Results Impressions: Abdomen/Pelvis CT 12/05/17 19:46 IMPRESSION: 1. Stable hepatic cysts. 2. Mild ductal dilatation suggesting prior cholecystectomy. Surgical clips are not seen, however. 3. Thickening of both adrenal glands that appears stable. 4. Extensive diverticulosis coli with no acute inflammatory changes. 5. Considerable stool. A large amount of stool in the rectum raises the possibility of fecal impaction. 6. Scoliosis and mild lumbar degenerative disc changes. Chest X-Ray 12/05/17 22:24 IMPRESSION: NO ACUTE RADIOGRAPHIC FINDING IN THE CHEST. Assessment & Plan - Diagnosis (1) Hypernatremia Is this a current diagnosis for this admission?: Yes Plan: To place patient on D5 water and trend sodium (2) Aspiration pneumonia Qualifiers: Aspiration pneumonia type: due to vomit Laterality: right Lung location: lower lobe of lung Qualified Code(s): J69.0 - Pneumonitis due to inhalation of food and vomit Is this a current diagnosis for this admission?: Yes Plan: Change to Zosyn to cover gram-negative bacilli (3) Fecal impaction Is this a current diagnosis for this admission?: Yes Plan: Disimpacted while in emergency room on admission (4) Hypothyroidism Qualifiers: Hypothyroidism type: acquired Qualified Code(s): E03.9 - Hypothyroidism, unspecified Is this a current diagnosis for this admission?: Yes Plan: Continue outpatient regimen (5) Dementia Qualifiers: Alzheimer's disease onset: unspecified onset Dementia behavioral disturbance: without behavioral disturbance Is this a current diagnosis for this admission?: Yes Plan: Supportive care (6) Altered mental status Qualifiers: Altered mental status type: somnolence Qualified Code(s): R40.0 - Somnolence Is this a current diagnosis for this admission?: Yes Plan: Order CT of the brain without contrast (7) Abdominal pain Qualifiers: Abdominal location: generalized Qualified Code(s): R10.84 - Generalized abdominal pain Is this a current diagnosis for this admission?: Yes Plan: Patient grimacing on auscultation. May be contributing to presentation. Results of CT of the abdomen and pelvis noted. Order morphine IV for pain. Was more awake will order a bowel regimen - Time Time Spent with patient: 15-24 minutes Medications reviewed and adjusted accordingly: Yes Anticipated discharge: SNF Within: within 72 hours - Inpatient Certification Based on my medical assessment, after consideration of the patient's comorbidities, presenting symptoms, or acuity I expect that the services needed warrant INPATIENT care.: Yes I certify that my determination is in accordance with my understanding of Medicare's requirements for reasonable and necessary INPATIENT services [42 CFR 412.3e].: Yes Medical Necessity: Need Close Monitoring Due to Risk of Patient Decompensation, Need For IV Fluids, Need for IV Antibiotics
[2017-12-06] MEDS: DEXTROSE 5%-WATER 1000 ML 1,000 ML IV PRN (17:06)
[2017-12-06] MEDS: METOCLOPRAMIDE HCL INJ/PF 10 MG/2 ML SDV IV SCH ×2 (17:19→23:03)
[2017-12-06] MEDS: LEVETIRACETAM 500 MG/NACL-ISO 500 MG/100 ML RTUPB IV SCH (17:19)
[2017-12-06] MEDS: PIPERACILLIN SODIUM/TAZOBACTAM 3.375 GM in NORMAL SALINE 100 ML IV SCH ×2 (18:42→23:03)
--- NOTE | 2017-12-06 19:24 | RADIOLOGY REPORT (SQ) ---
EXAM DESCRIPTION: CT HEAD WITHOUT COMPLETED DATE/TIME: 12/06/2017 7:03 pm REASON FOR STUDY: AMS COMPARISON: 04/23/2017 TECHNIQUE: Axial images acquired through the brain without intravenous contrast. Images reviewed wi th bone, brain and subdural windows. Additional sagittal and coronal reconstructions were generated. Images stored on PACS. All CT scanners at this facility use dose modulation, iterative reconstruction, and/or weight based d osing when appropriate to reduce radiation dose to as low as reasonably achievable (ALARA). [facility]: Dose Right [facility]: CareDose [facility]: Dose Right [facility]: Teradose 4D [facility]: Smart Technologies RADIATION DOSE: CT Rad equipment meets quality standard of care and radiation dose reduction techniq ues were employed. CTDIvol: 53.2 mGy. DLP: 937 mGy-cm. mGy. LIMITATIONS: None. FINDINGS: VENTRICLES: Prominent ventricles secondary to involutional atrophy. CEREBRUM: Cortical atrophy. No masses. No hemorrhage. No midline shift. No evidence for acute inf arction. Areas of low density in the white matter most likely chronic small vessel ischemic changes. CEREBELLUM: No masses. No hemorrhage. No alteration of density. No evidence for acute infarction. EXTRAAXIAL SPACES: No fluid collections. No masses. ORBITS AND GLOBE: No intra- or extraconal masses. Normal contour of globe without masses. CALVARIUM: No fracture. PARANASAL SINUSES: No fluid or mucosal thickening. SOFT TISSUES: No mass or hematoma. OTHER: No other significant finding. IMPRESSION: MICROVASCULAR ISCHEMIA AND GENERALIZED ATROPHY. NO ACUTE IMAGING FINDINGS IN THE BRAIN EVIDENCE OF ACUTE STROKE: NO. COMMENT: Quality ID # [id number]: Final reports with documentation of one or more dose reduction techniques (e.g., Automated exposure control, adjustment of the mA and/or kV according to patient size, use of iterative reconstruction technique) TECHNICAL DOCUMENTATION: JOB ID: [id number] 04/23/20172010 [employer] All Rights Reserved Reading location - IP/workstation name: [email or web address]
[2017-12-06] MEDS: DIVALPROEX SODIUM 250 MG TAB.SR.24H PO SCH (22:06)
[2017-12-06] MEDS: SENNOSIDES/DOCUSATE 8.6-50 MG 1 EACH TABLET PO SCH (22:06)
[2017-12-07] MEDS: DEXTROSE 5%-WATER 1000 ML 1,000 ML IV PRN (02:58)
[2017-12-07] MEDS: LEVETIRACETAM 500 MG/NACL-ISO 500 MG/100 ML RTUPB IV SCH ×2 (05:15→17:14)
[2017-12-07] MEDS: LEVOTHYROXINE SODIUM 0.1 MG TABLET PO SCH (05:16)
[2017-12-07] MEDS: METOCLOPRAMIDE HCL INJ/PF 10 MG/2 ML SDV IV SCH ×4 (05:16→23:50)
[2017-12-07] MEDS: LANSOPRAZOLE 30 MG TAB.RAP.DR PO SCH (05:16)
[2017-12-07] MEDS: PIPERACILLIN SODIUM/TAZOBACTAM 3.375 GM in NORMAL SALINE 100 ML IV SCH ×2 (05:46→12:24)
[2017-12-07 07:25] LABS: ABSOLUTE EOSINOPHILS # (AUTO) 0.1 10^3/uL (0.0-0.6); ABSOLUTE MONOCYTES (AUTO) 0.6 10^3/uL (0.1-1.4); ABSOLUTE NEUT (AUTO) 2.8 10^3/uL (1.7-8.2); BASOPHILS % (AUTO) 0.7 % (0-2); EOSINOPHILS % (AUTO) 1.9 % (0-6); HEMATOCRIT 32.1 % (36.0-47.0); LYMPHOCYTES % (AUTO) 35.2 % (13-45); MEAN CORPUSCULAR HEMOGLOBIN 30.6 pg (27.0-33.4); MEAN CORPUSCULAR HGB CONC 35.2 g/dL (32.0-36.0); MEAN CORPUSCULAR VOLUME 87 fl (80-97); MONOCYTES % (AUTO) 11.6 % (3-13); PLATELET COUNT 214 10^3/uL (150-450); RED CELL DISTRIBUTION WIDTH 13.7 % (11.5-14.0); SEGMENTED NEUTROPHILS % (AUTO) 50.6 % (42-78); TOTAL CELLS COUNTED % (AUTO) 100 %; WHITE BLOOD COUNT 5.6 10^3/uL (4.0-10.5)
[2017-12-07 07:30] LABS: HEMOGLOBIN 11.3 g/dL (12.0-15.5)
[2017-12-07 07:38] LABS: ANION GAP 6 (5-19); BLOOD UREA NITROGEN 10 mg/dL (7-20); CALCIUM 8.2 mg/dL (8.4-10.2); CARBON DIOXIDE 34 mmol/L (22-30); CHLORIDE 108 mmol/L (98-107); GLUCOSE 93 mg/dL (75-110); POTASSIUM 3.1 mmol/L (3.6-5.0); SODIUM 148.4 mmol/L (137-145)
[2017-12-07] MEDS ORDERED: POTASSIUM CHLORIDE 10 MEQ TABLET.SA PO ONE (09:30)
[2017-12-07] MEDS ORDERED: (PENDING PHARMACY ID) (Calcium Carbonate/Vitamin D3 [Calcium 600-Vit D3 200 Tablet] 1 EACH PO SCH (10:00)
--- NOTE | 2017-12-07 10:23 | RADIOLOGY REPORT (SQ) ---
EXAM DESCRIPTION: LAINEIE SWALLOW COMPLETED DATE/TIME: 12/07/2017 10:09 am REASON FOR STUDY: Possible aspiration COMPARISON: None. TECHNIQUE: Videofluoroscopic swallowing examination was performed in conjunction with speech patholo gy. Videofluoroscopic imaging was obtained and reviewed and these are the findings: RADIATION DOSE: 1 minute 36 seconds of fluoro used. 1 images saved to PACS. LIMITATIONS: None FINDINGS: The patient was brought into the fluoro room and placed upright on a modified barium swall ow chair. The patient was then given multiple consistencies mixed with barium to swallow under live fluoroscopic video guidance. According to the Speech Pathologist there was deep laryngeal penetratio n with thins. No aspiration. IMPRESSION: DEEP LARYNGEAL PENETRATION WITHOUT ASPIRATION.PLEASE SEE SPEECH PATHOLOGIST REPORT FOR O THER FINDINGS AND RECOMMENDATIONS. COMMENT: Quality ID [id number]: Final reports for procedures using fluoroscopy that document radiation exp osure indices, or exposure time and number of fluorographic images (if radiation exposure indices are not available) TECHNICAL DOCUMENTATION: JOB ID: [id number] [employer]- All Rights Reserved Reading location - IP/workstation name: [email or web address] [id number]
[2017-12-07] MEDS: POTASSI CL 40 MEQ/D5-1/2NS 1L 40 MEQ/1,000 ML RTUINJ IV PRN ×2 (10:37→22:12)
[2017-12-07] MEDS: CALCIUM CARBONATE 250 MG/VITAMIN D3 125 UNIT TABLET PO SCH (10:42)
[2017-12-07] MEDS: ASPIRIN 325 MG TABLET PO SCH (10:42)
[2017-12-07] MEDS: ENOXAPARIN SODIUM INJ 40 MG/0.4 ML DISP.SYRIN SUBCUT SCH (10:43)
[2017-12-07 12:34] LABS: ANION GAP 9 (5-19); BLOOD UREA NITROGEN 9 mg/dL (7-20); CALCIUM 8.8 mg/dL (8.4-10.2); CARBON DIOXIDE 33 mmol/L (22-30); CHLORIDE 106 mmol/L (98-107); GLUCOSE 97 mg/dL (75-110); POTASSIUM 3.5 mmol/L (3.6-5.0); SODIUM 147.7 mmol/L (137-145)
[2017-12-07] MEDS ORDERED: GUAIFENESIN SYRP 200 MG/10 ML UDC PO PRN (15:04)
--- NOTE | 2017-12-07 15:27 | PDOC PROGRESS REPORT ---
Subjective Progress Note for:: 12/07/17 Subjective:: Unable to obtain due to patient's mental status. However patient appears to be more alert, eyes wide open. Try to contact patients on, [facility] via phone but unable Review of systems Unable to obtain due to patient's mental status All significant laboratories and diagnostics have been reviewed Reason For Visit: ASPIRATION PNEUMONIA, CONSTIPATION Physical Exam Vital Signs: Temp Pulse Resp BP Pulse Ox 98.4 F 83 18 102/56 L 95 12/07/17 00:00 12/07/17 00:00 12/07/17 00:00 12/07/17 00:00 12/07/17 00:00 Intake & Output 12/06/17 12/07/17 12/08/17 06:59 06:59 06:59 Intake Total 2950 Balance 2950 Weight 65.2 kg 66 kg General appearance: PRESENT: no acute distress, cooperative, well-developed, well-nourished Head exam: PRESENT: atraumatic, normocephalic Eye exam: PRESENT: conjunctiva pink, EOMI, PERRLA Ear exam: PRESENT: normal external ear exam Mouth exam: PRESENT: moist Neck exam: PRESENT: full ROM. ABSENT: JVD, lymphadenopathy, tenderness Respiratory exam: PRESENT: clear to auscultation lyssa Cardiovascular exam: PRESENT: RRR. ABSENT: diastolic murmur, systolic murmur GI/Abdominal exam: PRESENT: normal bowel sounds, soft. ABSENT: tenderness Extremities exam: PRESENT: full ROM. ABSENT: pedal edema Musculoskeletal exam: PRESENT: ambulatory Neurological exam: PRESENT: alert, awake. ABSENT: oriented to person, oriented to place, oriented to time Psychiatric exam: PRESENT: depressed Skin exam: PRESENT: intact, normal color Results Laboratory Results: 12/07/17 06:51 12/07/17 06:51 12/07/17 12/07/17 06:51 06:51 WBC 5.6 RBC 3.70 L Hgb 11.3 L D Hct 32.1 L MCV 87 MCH 30.6 MCHC 35.2 RDW 13.7 Plt Count 214 Seg Neutrophils % 50.6 Lymphocytes % 35.2 Monocytes % 11.6 Eosinophils % 1.9 Basophils % 0.7 Absolute Neutrophils 2.8 Absolute Lymphocytes 2.0 Absolute Monocytes 0.6 Absolute Eosinophils 0.1 Absolute Basophils 0.0 Sodium 148.4 H Potassium 3.1 L Chloride 108 H Carbon Dioxide 34 H Anion Gap 6 BUN 10 Creatinine 0.56 Est GFR ( Amer) > 60 Est GFR (Non-Af Amer) > 60 Glucose 93 Calcium 8.2 L Impressions: Abdomen/Pelvis CT 12/05/17 19:46 IMPRESSION: 1. Stable hepatic cysts. 2. Mild ductal dilatation suggesting prior cholecystectomy. Surgical clips are not seen, however. 3. Thickening of both adrenal glands that appears stable. 4. Extensive diverticulosis coli with no acute inflammatory changes. 5. Considerable stool. A large amount of stool in the rectum raises the possibility of fecal impaction. 6. Scoliosis and mild lumbar degenerative disc changes. Chest X-Ray 12/05/17 22:24 IMPRESSION: NO ACUTE RADIOGRAPHIC FINDING IN THE CHEST. Head CT 12/06/17 00:00 IMPRESSION: MICROVASCULAR ISCHEMIA AND GENERALIZED ATROPHY. NO ACUTE IMAGING FINDINGS IN THE BRAIN EVIDENCE OF ACUTE STROKE: NO. Assessment & Plan - Diagnosis (1) Hypernatremia Is this a current diagnosis for this admission?: Yes Plan: Change IV fluids and add potassium. Trend (2) Aspiration pneumonia Qualifiers: Aspiration pneumonia type: due to vomit Laterality: right Lung location: lower lobe of lung Qualified Code(s): J69.0 - Pneumonitis due to inhalation of food and vomit Is this a current diagnosis for this admission?: Yes Plan: To transition to Augmentin and repeat chest x-ray. Normal modified barium swallow (3) Fecal impaction Is this a current diagnosis for this admission?: Yes Plan: Continue bowel regimen (4) Hypothyroidism Qualifiers: Hypothyroidism type: acquired Qualified Code(s): E03.9 - Hypothyroidism, unspecified Is this a current diagnosis for this admission?: Yes Plan: Continue outpatient regimen (5) Dementia Qualifiers: Alzheimer's disease onset: unspecified onset Dementia behavioral disturbance: without behavioral disturbance Is this a current diagnosis for this admission?: Yes Plan: Supportive care. Restart Namenda and Exelon. Order physical therapy. (6) Altered mental status Qualifiers: Altered mental status type: somnolence Qualified Code(s): R40.0 - Somnolence Is this a current diagnosis for this admission?: Yes Plan: CT of the brain results noted. The patient is more alert but still not wanting to talk. To restart dementia medications (7) Abdominal pain Qualifiers: Abdominal location: generalized Qualified Code(s): R10.84 - Generalized abdominal pain Is this a current diagnosis for this admission?: Yes Plan: Resolved (8) Hypokalemia Is this a current diagnosis for this admission?: Yes Plan: Replace oral and through IV. To trend - Time Time Spent with patient: 15-24 minutes Medications reviewed and adjusted accordingly: Yes Anticipated discharge: SNF Within: within 48 hours - Inpatient Certification Based on my medical assessment, after consideration of the patient's comorbidities, presenting symptoms, or acuity I expect that the services needed warrant INPATIENT care.: Yes I certify that my determination is in accordance with my understanding of Medicare's requirements for reasonable and necessary INPATIENT services [42 CFR 412.3e].: Yes Medical Necessity: Need Close Monitoring Due to Risk of Patient Decompensation, Need For IV Fluids
--- NOTE | 2017-12-07 15:56 | ST Inp Modified Barium Swallow ---
Medical Diagnosis - Medical Diagnoses Medical Diagnosis Description & ICD-10 Code(s): aspiration pneumonia J69.0 [facility] [place] [facility] [place] General Date: 12/07/17 - History History Obtained From: Other - EMR -: Medical - altered mental status, advanced dementia, cognitive impairment, hyperlipidemia, hypothyroidism Medications: Medications Reviewed Allergies: No known allergies - Subjective Current Nutritional Means: PO Current PO Diet: Pureed - and thin liquids Current Symptoms: Hx of asp. pneumonia Pain: no signs/symptoms of pain - Objective Assessment: Upright, Left Lateral - Food Trials Food Trials Used: Thin liquids, Pureed The Patient: Required Assist - Assessment Labial Function: Within Normal Limits Lingual Function: Within Normal Limits Mandibular Function: Within Normal Limits Dentition: Edentulous Laryngeal Function: no volitional swallow, no volitional cough/clear - Pharyngeal Stage Initiation of Pharyngeal Stage: Delayed Reflex Delay Time (seconds): 5 Decreased Laryngeal Elevation: No Reduced Velo-Pharyngeal Closure: no Reduced Pressure Generation: No Reduced Tongue Base Retraction: No Pre-Swallowing Pooling in Valleculae: Moderate Pre-Swallowing Pooling in Pyriforms: None Reduced Thyro-Hyiod Approximation: Yes - mild Reduced Epiglottic Excursion: No Reduced Pharyngeal Peristalsis: No Post Swallow Residuals in Valleculae: Mild Post Swallow Residuals in Pyriforms: Mild - Impression/Summary Laryngeal Penetration: Yes - with thin liquids, Silent, during swallow Tracheal Aspiration: no Compensatory Strategies: unable to follow directions for strategies Patient Presents With: Pharyngeal stage dysph., Mild-Moderate Risk of Aspiration: Mild Risk of Nutritional Compromise: WNL Risk Due To: delayed swallow, mild residue - Recommendations Solid Diet Recommendations: Pureed Liquid Diet Recommendations: Thin Strict Aspitarion Precautions: Yes Dysphagia Therapy with GAS COMPRESSOR TURBINE OPERATOR: No Recommended Techniques: Fully Upright During Meal, Small Bites and Sips - Time Total Time: 20 Total Timed Minutes: 20
[2017-12-07] MEDS ORDERED: (PENDING PHARMACY ID) (Rivastigmine Tartrate [Rivastigmine] 3 MG) PO SCH (16:00)
[2017-12-07] MEDS: RIVASTIGMINE TARTRATE 1.5 MG CAPSULE PO SCH (16:49)
[2017-12-07] MEDS: AMOXICILLIN TR/POT CLAVULANATE 500-125 MG TAB PO SCH (22:11)
[2017-12-07] MEDS: ATORVASTATIN CALCIUM 10 MG TABLET PO SCH (22:11)
[2017-12-07] MEDS: DIVALPROEX SODIUM 250 MG TAB.SR.24H PO SCH (22:11)
[2017-12-07] MEDS: SENNOSIDES/DOCUSATE 8.6-50 MG 1 EACH TABLET PO SCH (22:12)
[2017-12-08] MEDS: METOCLOPRAMIDE HCL INJ/PF 10 MG/2 ML SDV IV SCH ×2 (06:03→11:06)
[2017-12-08] MEDS: LANSOPRAZOLE 30 MG TAB.RAP.DR PO SCH (06:03)
[2017-12-08] MEDS: LEVETIRACETAM 500 MG/NACL-ISO 500 MG/100 ML RTUPB IV SCH (06:03)
[2017-12-08] MEDS: LEVOTHYROXINE SODIUM 0.1 MG TABLET PO SCH (06:03)
[2017-12-08] MEDS: AMOXICILLIN TR/POT CLAVULANATE 500-125 MG TAB PO SCH ×3 (06:03→21:30)
[2017-12-08 07:34] LABS: ABSOLUTE EOSINOPHILS # (AUTO) 0.1 10^3/uL (0.0-0.6); ABSOLUTE LYMPHOCYTES (AUTO) 1.9 10^3/uL (0.5-4.7); ABSOLUTE MONOCYTES (AUTO) 0.9 10^3/uL (0.1-1.4); BASOPHILS % (AUTO) 0.6 % (0-2); EOSINOPHILS % (AUTO) 1.9 % (0-6); HEMATOCRIT 34.6 % (36.0-47.0); HEMOGLOBIN 11.8 g/dL (12.0-15.5); LYMPHOCYTES % (AUTO) 31.6 % (13-45); MEAN CORPUSCULAR HEMOGLOBIN 30.2 pg (27.0-33.4); MEAN CORPUSCULAR HGB CONC 34.2 g/dL (32.0-36.0); MEAN CORPUSCULAR VOLUME 89 fl (80-97); PLATELET COUNT 260 10^3/uL (150-450); RED CELL DISTRIBUTION WIDTH 13.4 % (11.5-14.0); SEGMENTED NEUTROPHILS % (AUTO) 50.9 % (42-78); TOTAL CELLS COUNTED % (AUTO) 100 %
[2017-12-08] MEDS: RIVASTIGMINE TARTRATE 1.5 MG CAPSULE PO SCH ×2 (08:16→15:24)
--- NOTE | 2017-12-08 08:18 | RADIOLOGY REPORT (SQ) ---
EXAM DESCRIPTION: CHEST 2 VIEWS COMPLETED DATE/TIME: 12/08/2017 7:56 am REASON FOR STUDY: follow up COMPARISON: Comparison 12/05/2017, 08/15/2017, 04/23/2017 EXAM PARAMETERS: NUMBER OF VIEWS: two views TECHNIQUE: Digital Frontal and Lateral radiographic views of the chest acquired. RADIATION DOSE: NA LIMITATIONS: none FINDINGS: LUNGS AND PLEURA: Pulmonary vascular prominence. There is blunting of the posterior costophrenic sulci from trace pleural fluid and minimal basilar ai rspace disease likely atelectasis. No pneumothorax. No pulmonary nodules. MEDIASTINUM AND HILAR STRUCTURES: No masses or contour abnormalities. HEART AND VASCULAR STRUCTURES: Mild cardiomegaly BONES: No acute findings. HARDWARE: None in the chest. OTHER: No other significant finding. IMPRESSION: Pulmonary vascular prominence with trace pleural effusions and mild bibasilar atelectasi s TECHNICAL DOCUMENTATION: JOB ID: [id number] [employer]- All Rights Reserved Reading location - IP/workstation name: [email or web address]
[2017-12-08] MEDS ORDERED: POTASSIUM CHLORIDE 10 MEQ TABLET.SA PO ONE (08:54)
[2017-12-08] MEDS ORDERED: (PENDING PHARMACY ID) (Omega-3s/Dha/Epa/Fish Oil [Fish Oil 1,200 Mg Softgel] 1 EACH) PO SCH (10:00)
[2017-12-08] MEDS ORDERED: (PENDING PHARMACY ID) (Pravastatin Sodium [Pravachol] 40 MG) PO SCH (10:00)
[2017-12-08] MEDS ORDERED: (PENDING PHARMACY ID) (Lactulose [Constulose 10 Gm/15 Ml Oral Solution] 10 GM) PO SCH (10:00)
[2017-12-08] MEDS ORDERED: (PENDING PHARMACY ID) (Memantine Hcl [Namenda Xr] 28 MG) PO SCH (10:00)
[2017-12-08] MEDS: CALCIUM CARBONATE 250 MG/VITAMIN D3 125 UNIT TABLET PO SCH (11:03)
[2017-12-08] MEDS: OMEGA-3 ACID ETHYL ESTERS 1 GM CAPSULE PO SCH (11:05)
[2017-12-08] MEDS: MULTIVITAMIN TABLET PO SCH (11:07)
[2017-12-08] MEDS: LACTULOSE SYRUP 20 GM/30 ML UDCUP PO SCH (11:07)
[2017-12-08] MEDS: ASPIRIN 325 MG TABLET PO SCH (11:07)
[2017-12-08] MEDS: ENOXAPARIN SODIUM INJ 40 MG/0.4 ML DISP.SYRIN SUBCUT SCH (11:08)
[2017-12-08] MEDS: POTASSI CL 40 MEQ/D5-1/2NS 1L 40 MEQ/1,000 ML RTUINJ IV PRN ×2 (11:09→21:28)
--- NOTE | 2017-12-08 17:33 | PDOC PROGRESS REPORT ---
Subjective Progress Note for:: 12/08/17 Subjective:: Unable to obtain due to patient's mental status. Patient appears to be more alert however is nonverbal. PT stated that patient is not participating in physical therapy either Review of systems Unable to obtain due to patient's mental status All significant laboratories and diagnostics have been reviewed Reason For Visit: ASPIRATION PNEUMONIA, CONSTIPATION Physical Exam Vital Signs: Temp Pulse Resp BP Pulse Ox 97.3 F 88 16 104/70 98 12/07/17 23:45 12/07/17 23:45 12/07/17 23:45 12/07/17 23:45 12/07/17 23:45 Intake & Output 12/07/17 12/08/17 12/09/17 06:59 06:59 06:59 Intake Total 2950 1612 Balance 2950 1612 Weight 66 kg 66 kg General appearance: PRESENT: no acute distress, cooperative Head exam: PRESENT: atraumatic, normocephalic Eye exam: PRESENT: conjunctiva pink, EOMI, PERRLA Mouth exam: PRESENT: moist Neck exam: PRESENT: full ROM. ABSENT: JVD, lymphadenopathy, tenderness Respiratory exam: PRESENT: clear to auscultation lyssa Cardiovascular exam: PRESENT: RRR. ABSENT: diastolic murmur, systolic murmur Vascular exam: PRESENT: normal capillary refill GI/Abdominal exam: PRESENT: normal bowel sounds, soft. ABSENT: tenderness Extremities exam: ABSENT: full ROM, pedal edema Musculoskeletal exam: ABSENT: ambulatory Neurological exam: PRESENT: alert, awake Psychiatric exam: PRESENT: flat affect Skin exam: PRESENT: normal color Results Laboratory Results: 12/08/17 06:17 12/07/17 11:40 12/07/17 12/08/17 12/08/17 11:40 06:17 06:17 WBC 6.0 RBC 3.90 Hgb 11.8 L Hct 34.6 L MCV 89 MCH 30.2 MCHC 34.2 RDW 13.4 Plt Count 260 Seg Neutrophils % 50.9 Lymphocytes % 31.6 Monocytes % 15.0 H Eosinophils % 1.9 Basophils % 0.6 Absolute Neutrophils 3.0 Absolute Lymphocytes 1.9 Absolute Monocytes 0.9 Absolute Eosinophils 0.1 Absolute Basophils 0.0 Sodium 147.7 H Potassium 3.5 L Chloride 106 Carbon Dioxide 33 H Anion Gap 9 BUN 9 Creatinine 0.54 Est GFR ( Amer) > 60 Est GFR (Non-Af Amer) > 60 Glucose 97 Calcium 8.8 Magnesium 1.8 Impressions: Abdomen/Pelvis CT 12/05/17 19:46 IMPRESSION: 1. Stable hepatic cysts. 2. Mild ductal dilatation suggesting prior cholecystectomy. Surgical clips are not seen, however. 3. Thickening of both adrenal glands that appears stable. 4. Extensive diverticulosis coli with no acute inflammatory changes. 5. Considerable stool. A large amount of stool in the rectum raises the possibility of fecal impaction. 6. Scoliosis and mild lumbar degenerative disc changes. Head CT 12/06/17 00:00 IMPRESSION: MICROVASCULAR ISCHEMIA AND GENERALIZED ATROPHY. NO ACUTE IMAGING FINDINGS IN THE BRAIN EVIDENCE OF ACUTE STROKE: NO. Modified Barium Swallow 12/07/17 00:00 IMPRESSION: DEEP LARYNGEAL PENETRATION WITHOUT ASPIRATION.PLEASE SEE SPEECH PATHOLOGIST REPORT FOR OTHER FINDINGS AND RECOMMENDATIONS. Chest X-Ray 12/08/17 00:00 IMPRESSION: Pulmonary vascular prominence with trace pleural effusions and mild bibasilar atelectasis Assessment & Plan - Diagnosis (1) Hypernatremia Is this a current diagnosis for this admission?: Yes Plan: Continue IV fluids and trend (2) Aspiration pneumonia Qualifiers: Aspiration pneumonia type: due to vomit Laterality: right Lung location: lower lobe of lung Qualified Code(s): J69.0 - Pneumonitis due to inhalation of food and vomit Is this a current diagnosis for this admission?: Yes Plan: Continue Augmentin. Chest x-ray results noted (3) Fecal impaction Is this a current diagnosis for this admission?: Yes Plan: Resolved (4) Hypothyroidism Qualifiers: Hypothyroidism type: acquired Qualified Code(s): E03.9 - Hypothyroidism, unspecified Is this a current diagnosis for this admission?: Yes Plan: Continue outpatient regimen (5) Dementia Qualifiers: Alzheimer's disease onset: unspecified onset Dementia behavioral disturbance: without behavioral disturbance Is this a current diagnosis for this admission?: Yes Plan: Supportive care. Continue Namenda and Exelon (6) Altered mental status Qualifiers: Altered mental status type: somnolence Qualified Code(s): R40.0 - Somnolence Is this a current diagnosis for this admission?: Yes Plan: CT of the brain results noted. The patient is more alert but still not wanting to talk. (7) Abdominal pain Qualifiers: Abdominal location: generalized Qualified Code(s): R10.84 - Generalized abdominal pain Is this a current diagnosis for this admission?: Yes Plan: Resolved (8) Hypokalemia Is this a current diagnosis for this admission?: Yes Plan: Replace oral and through IV. To trend - Time Time Spent with patient: 15-24 minutes Medications reviewed and adjusted accordingly: Yes Anticipated discharge: SNF Within: within 72 hours - Inpatient Certification Based on my medical assessment, after consideration of the patient's comorbidities, presenting symptoms, or acuity I expect that the services needed warrant INPATIENT care.: Yes I certify that my determination is in accordance with my understanding of Medicare's requirements for reasonable and necessary INPATIENT services [42 CFR 412.3e].: Yes Medical Necessity: Need Close Monitoring Due to Risk of Patient Decompensation, Need For IV Fluids
[2017-12-08] MEDS: ATORVASTATIN CALCIUM 10 MG TABLET PO SCH (21:30)
[2017-12-08] MEDS: DIVALPROEX SODIUM 250 MG TAB.SR.24H PO SCH (21:30)
[2017-12-08] MEDS: SENNOSIDES/DOCUSATE 8.6-50 MG 1 EACH TABLET PO SCH (21:30)
[2017-12-09 06:01] LABS: ABSOLUTE EOSINOPHILS # (AUTO) 0.2 10^3/uL (0.0-0.6); ABSOLUTE LYMPHOCYTES (AUTO) 2.4 10^3/uL (0.5-4.7); ABSOLUTE MONOCYTES (AUTO) 0.9 10^3/uL (0.1-1.4); ABSOLUTE NEUT (AUTO) 3.9 10^3/uL (1.7-8.2); BASOPHILS % (AUTO) 0.6 % (0-2); EOSINOPHILS % (AUTO) 2.4 % (0-6); HEMATOCRIT 35.8 % (36.0-47.0); HEMOGLOBIN 12.3 g/dL (12.0-15.5); MEAN CORPUSCULAR HEMOGLOBIN 30.3 pg (27.0-33.4); MEAN CORPUSCULAR HGB CONC 34.4 g/dL (32.0-36.0); MEAN CORPUSCULAR VOLUME 88 fl (80-97); MONOCYTES % (AUTO) 12.4 % (3-13); PLATELET COUNT 288 10^3/uL (150-450); RED BLOOD COUNT 4.06 10^6/uL (3.72-5.28); RED CELL DISTRIBUTION WIDTH 13.6 % (11.5-14.0); SEGMENTED NEUTROPHILS % (AUTO) 52.6 % (42-78); TOTAL CELLS COUNTED % (AUTO) 100 %; WHITE BLOOD COUNT 7.4 10^3/uL (4.0-10.5)
[2017-12-09] MEDS: AMOXICILLIN TR/POT CLAVULANATE 500-125 MG TAB PO SCH ×3 (06:06→22:56)
[2017-12-09] MEDS: LEVOTHYROXINE SODIUM 0.1 MG TABLET PO SCH (06:06)
[2017-12-09] MEDS: LANSOPRAZOLE 30 MG TAB.RAP.DR PO SCH (06:06)
[2017-12-09 06:08] LABS: ANION GAP 9 (5-19); BLOOD UREA NITROGEN 5 mg/dL (7-20); CALCIUM 9.4 mg/dL (8.4-10.2); CARBON DIOXIDE 28 mmol/L (22-30); CHLORIDE 108 mmol/L (98-107); GLUCOSE 96 mg/dL (75-110); POTASSIUM 4.9 mmol/L (3.6-5.0); SODIUM 145.4 mmol/L (137-145)
[2017-12-09] MEDS: RIVASTIGMINE TARTRATE 1.5 MG CAPSULE PO SCH ×2 (08:53→15:30)
[2017-12-09] MEDS: CALCIUM CARBONATE 250 MG/VITAMIN D3 125 UNIT TABLET PO SCH (10:02)
[2017-12-09] MEDS: MULTIVITAMIN TABLET PO SCH (10:02)
[2017-12-09] MEDS: OMEGA-3 ACID ETHYL ESTERS 1 GM CAPSULE PO SCH (10:02)
[2017-12-09] MEDS: LACTULOSE SYRUP 20 GM/30 ML UDCUP PO SCH (10:02)
[2017-12-09] MEDS: ASPIRIN 325 MG TABLET PO SCH (10:03)
[2017-12-09] MEDS: ENOXAPARIN SODIUM INJ 40 MG/0.4 ML DISP.SYRIN SUBCUT SCH (10:03)
--- NOTE | 2017-12-09 13:15 | PDOC PROGRESS REPORT ---
Subjective Progress Note for:: 12/09/17 Subjective:: Unable to obtain due to patient's mental status. Patient somnolent at the time of evaluation Review of systems Unable to obtain due to patient's mental status All significant laboratories and diagnostics have been reviewed Reason For Visit: ASPIRATION PNEUMONIA, CONSTIPATION Physical Exam Vital Signs: Temp Pulse Resp BP Pulse Ox 97.9 F 79 14 137/78 H 99 12/08/17 23:29 12/08/17 23:29 12/08/17 23:29 12/08/17 23:29 12/08/17 23:29 Intake & Output 12/08/17 12/09/17 12/10/17 06:59 06:59 06:59 Intake Total 1612 3037 Balance 1612 3037 Weight 66 kg 66.2 kg General appearance: PRESENT: no acute distress, cooperative, well-developed, well-nourished Head exam: PRESENT: normocephalic Eye exam: PRESENT: conjunctiva pink, EOMI, PERRLA Mouth exam: PRESENT: moist Neck exam: ABSENT: JVD, lymphadenopathy, tenderness Respiratory exam: PRESENT: clear to auscultation lyssa Cardiovascular exam: PRESENT: RRR. ABSENT: diastolic murmur, systolic murmur Vascular exam: PRESENT: normal capillary refill GI/Abdominal exam: PRESENT: normal bowel sounds, soft. ABSENT: tenderness Extremities exam: PRESENT: full ROM. ABSENT: pedal edema Musculoskeletal exam: ABSENT: ambulatory Neurological exam: PRESENT: other - somnolent Skin exam: PRESENT: normal color Results Laboratory Results: 12/09/17 05:05 12/09/17 05:05 12/08/17 12/08/17 12/09/17 06:17 06:17 05:05 WBC 6.0 7.4 RBC 3.90 4.06 Hgb 11.8 L 12.3 Hct 34.6 L 35.8 L MCV 89 88 MCH 30.2 30.3 MCHC 34.2 34.4 RDW 13.4 13.6 Plt Count 260 288 Seg Neutrophils % 50.9 52.6 Lymphocytes % 31.6 32.0 Monocytes % 15.0 H 12.4 Eosinophils % 1.9 2.4 Basophils % 0.6 0.6 Absolute Neutrophils 3.0 3.9 Absolute Lymphocytes 1.9 2.4 Absolute Monocytes 0.9 0.9 Absolute Eosinophils 0.1 0.2 Absolute Basophils 0.0 0.0 Sodium Potassium Chloride Carbon Dioxide Anion Gap BUN Creatinine Est GFR ( Amer) Est GFR (Non-Af Amer) Glucose Calcium Magnesium 1.8 12/09/17 05:05 WBC RBC Hgb Hct MCV MCH MCHC RDW Plt Count Seg Neutrophils % Lymphocytes % Monocytes % Eosinophils % Basophils % Absolute Neutrophils Absolute Lymphocytes Absolute Monocytes Absolute Eosinophils Absolute Basophils Sodium 145.4 H Potassium 4.9 Chloride 108 H Carbon Dioxide 28 Anion Gap 9 BUN 5 L Creatinine 0.51 L Est GFR ( Amer) > 60 Est GFR (Non-Af Amer) > 60 Glucose 96 Calcium 9.4 Magnesium Impressions: Abdomen/Pelvis CT 12/05/17 19:46 IMPRESSION: 1. Stable hepatic cysts. 2. Mild ductal dilatation suggesting prior cholecystectomy. Surgical clips are not seen, however. 3. Thickening of both adrenal glands that appears stable. 4. Extensive diverticulosis coli with no acute inflammatory changes. 5. Considerable stool. A large amount of stool in the rectum raises the possibility of fecal impaction. 6. Scoliosis and mild lumbar degenerative disc changes. Head CT 12/06/17 00:00 IMPRESSION: MICROVASCULAR ISCHEMIA AND GENERALIZED ATROPHY. NO ACUTE IMAGING FINDINGS IN THE BRAIN EVIDENCE OF ACUTE STROKE: NO. Modified Barium Swallow 12/07/17 00:00 IMPRESSION: DEEP LARYNGEAL PENETRATION WITHOUT ASPIRATION.PLEASE SEE SPEECH PATHOLOGIST REPORT FOR OTHER FINDINGS AND RECOMMENDATIONS. Chest X-Ray 12/08/17 00:00 IMPRESSION: Pulmonary vascular prominence with trace pleural effusions and mild bibasilar atelectasis Assessment & Plan - Diagnosis (1) Hypernatremia Is this a current diagnosis for this admission?: Yes Plan: Improve. Discontinue fluids (2) Aspiration pneumonia Qualifiers: Aspiration pneumonia type: due to vomit Laterality: right Lung location: lower lobe of lung Qualified Code(s): J69.0 - Pneumonitis due to inhalation of food and vomit Is this a current diagnosis for this admission?: Yes Plan: Continue Augmentin. Chest x-ray results noted. Anticipate to discharge to the on December 11 continue stable (3) Fecal impaction Is this a current diagnosis for this admission?: Yes Plan: Resolved (4) Hypothyroidism Qualifiers: Hypothyroidism type: acquired Qualified Code(s): E03.9 - Hypothyroidism, unspecified Is this a current diagnosis for this admission?: Yes Plan: Continue outpatient regimen (5) Dementia Qualifiers: Alzheimer's disease onset: unspecified onset Dementia behavioral disturbance: without behavioral disturbance Is this a current diagnosis for this admission?: Yes Plan: Supportive care. Continue Namenda and Exelon (6) Altered mental status Qualifiers: Altered mental status type: somnolence Qualified Code(s): R40.0 - Somnolence Is this a current diagnosis for this admission?: Yes Plan: CT of the brain results noted. Had improved. (7) Abdominal pain Qualifiers: Abdominal location: generalized Qualified Code(s): R10.84 - Generalized abdominal pain Is this a current diagnosis for this admission?: Yes Plan: Resolved (8) Hypokalemia Is this a current diagnosis for this admission?: Yes Plan: Replaced - Time Time Spent with patient: 15-24 minutes Medications reviewed and adjusted accordingly: Yes Anticipated discharge: SNF Within: within 48 hours - Inpatient Certification Based on my medical assessment, after consideration of the patient's comorbidities, presenting symptoms, or acuity I expect that the services needed warrant INPATIENT care.: Yes I certify that my determination is in accordance with my understanding of Medicare's requirements for reasonable and necessary INPATIENT services [42 CFR 412.3e].: Yes Medical Necessity: Significant Comorbidiites Make Outpatient Treatment Too Risky , Need Close Monitoring Due to Risk of Patient Decompensation
[2017-12-09] MEDS: POTASSI CL 40 MEQ/D5-1/2NS 1L 40 MEQ/1,000 ML RTUINJ IV PRN (15:30)
[2017-12-09] MEDS: SENNOSIDES/DOCUSATE 8.6-50 MG 1 EACH TABLET PO SCH (22:56)
[2017-12-09] MEDS: ATORVASTATIN CALCIUM 10 MG TABLET PO SCH (22:56)
[2017-12-09] MEDS: DIVALPROEX SODIUM 250 MG TAB.SR.24H PO SCH (22:56)
[2017-12-10] MEDS: LANSOPRAZOLE 30 MG TAB.RAP.DR PO SCH (06:52)
[2017-12-10] MEDS: POTASSI CL 40 MEQ/D5-1/2NS 1L 40 MEQ/1,000 ML RTUINJ IV PRN ×2 (06:52→17:22)
[2017-12-10] MEDS: AMOXICILLIN TR/POT CLAVULANATE 500-125 MG TAB PO SCH ×3 (06:52→22:11)
[2017-12-10] MEDS: LEVOTHYROXINE SODIUM 0.1 MG TABLET PO SCH (06:52)
[2017-12-10] MEDS: RIVASTIGMINE TARTRATE 1.5 MG CAPSULE PO SCH ×2 (08:13→17:17)
[2017-12-10] MEDS: ENOXAPARIN SODIUM INJ 40 MG/0.4 ML DISP.SYRIN SUBCUT SCH (09:38)
[2017-12-10] MEDS: LACTULOSE SYRUP 20 GM/30 ML UDCUP PO SCH (09:39)
[2017-12-10] MEDS: CALCIUM CARBONATE 250 MG/VITAMIN D3 125 UNIT TABLET PO SCH (09:39)
[2017-12-10] MEDS: ASPIRIN 325 MG TABLET PO SCH (09:39)
[2017-12-10] MEDS: MULTIVITAMIN TABLET PO SCH (09:39)
[2017-12-10] MEDS: OMEGA-3 ACID ETHYL ESTERS 1 GM CAPSULE PO SCH (09:39)
--- NOTE | 2017-12-10 13:52 | PDOC PROGRESS REPORT ---
Subjective Progress Note for:: 12/10/17 Subjective:: Unable to obtain due to patient's mental status. Awake today but nonverbal. Nurse reports patient's son to change long-term Review of systems Unable to obtain due to patient's mental status All significant laboratories and diagnostics have been reviewed Reason For Visit: ASPIRATION PNEUMONIA, CONSTIPATION Physical Exam Vital Signs: Temp Pulse Resp BP Pulse Ox 98.2 F 88 14 115/71 95 12/09/17 23:28 12/09/17 23:28 12/09/17 23:28 12/09/17 23:28 12/09/17 23:28 Intake & Output 12/09/17 12/10/17 12/11/17 06:59 06:59 06:59 Intake Total 3037 3406 Balance 3037 3406 Weight 66.2 kg 66.4 kg General appearance: PRESENT: no acute distress, cooperative Head exam: PRESENT: atraumatic, normocephalic Eye exam: PRESENT: conjunctiva pink, EOMI, PERRLA Ear exam: PRESENT: normal external ear exam Mouth exam: PRESENT: moist Neck exam: PRESENT: full ROM. ABSENT: JVD, lymphadenopathy, tenderness Respiratory exam: PRESENT: clear to auscultation lyssa Cardiovascular exam: PRESENT: RRR, systolic murmur. ABSENT: diastolic murmur Vascular exam: PRESENT: normal capillary refill GI/Abdominal exam: PRESENT: normal bowel sounds, soft. ABSENT: tenderness Extremities exam: PRESENT: full ROM. ABSENT: pedal edema Musculoskeletal exam: ABSENT: ambulatory Neurological exam: PRESENT: awake Psychiatric exam: PRESENT: flat affect Skin exam: PRESENT: intact, normal color Results Laboratory Results: 12/09/17 05:05 12/09/17 05:05 Impressions: Abdomen/Pelvis CT 12/05/17 19:46 IMPRESSION: 1. Stable hepatic cysts. 2. Mild ductal dilatation suggesting prior cholecystectomy. Surgical clips are not seen, however. 3. Thickening of both adrenal glands that appears stable. 4. Extensive diverticulosis coli with no acute inflammatory changes. 5. Considerable stool. A large amount of stool in the rectum raises the possibility of fecal impaction. 6. Scoliosis and mild lumbar degenerative disc changes. Head CT 12/06/17 00:00 IMPRESSION: MICROVASCULAR ISCHEMIA AND GENERALIZED ATROPHY. NO ACUTE IMAGING FINDINGS IN THE BRAIN EVIDENCE OF ACUTE STROKE: NO. Modified Barium Swallow 12/07/17 00:00 IMPRESSION: DEEP LARYNGEAL PENETRATION WITHOUT ASPIRATION.PLEASE SEE SPEECH PATHOLOGIST REPORT FOR OTHER FINDINGS AND RECOMMENDATIONS. Chest X-Ray 12/08/17 00:00 IMPRESSION: Pulmonary vascular prominence with trace pleural effusions and mild bibasilar atelectasis Assessment & Plan - Diagnosis (1) Hypernatremia Is this a current diagnosis for this admission?: Yes Plan: Improve. Discontinue fluids (2) Aspiration pneumonia Qualifiers: Aspiration pneumonia type: due to vomit Laterality: right Lung location: lower lobe of lung Qualified Code(s): J69.0 - Pneumonitis due to inhalation of food and vomit Is this a current diagnosis for this admission?: Yes Plan: Continue Augmentin. Chest x-ray results noted. Discharge planning to placement (3) Fecal impaction Is this a current diagnosis for this admission?: Yes Plan: Resolved (4) Hypothyroidism Qualifiers: Hypothyroidism type: acquired Qualified Code(s): E03.9 - Hypothyroidism, unspecified Is this a current diagnosis for this admission?: Yes Plan: Continue outpatient regimen (5) Dementia Qualifiers: Alzheimer's disease onset: unspecified onset Dementia behavioral disturbance: without behavioral disturbance Is this a current diagnosis for this admission?: Yes Plan: Supportive care. Continue Namenda and Exelon (6) Altered mental status Qualifiers: Altered mental status type: somnolence Qualified Code(s): R40.0 - Somnolence Is this a current diagnosis for this admission?: Yes Plan: CT of the brain results noted. Appears to be at baseline (7) Abdominal pain Qualifiers: Abdominal location: generalized Qualified Code(s): R10.84 - Generalized abdominal pain Is this a current diagnosis for this admission?: Yes Plan: Resolved (8) Hypokalemia Is this a current diagnosis for this admission?: Yes Plan: Replaced - Time Time Spent with patient: Less than 15 minutes Medications reviewed and adjusted accordingly: Yes Anticipated discharge: SNF Within: when bed available - Inpatient Certification Based on my medical assessment, after consideration of the patient's comorbidities, presenting symptoms, or acuity I expect that the services needed warrant INPATIENT care.: Yes I certify that my determination is in accordance with my understanding of Medicare's requirements for reasonable and necessary INPATIENT services [42 CFR 412.3e].: Yes Medical Necessity: Need Close Monitoring Due to Risk of Patient Decompensation
[2017-12-10] MEDS: NYSTATIN TOPICAL POWDER 15 GM TP SCH (17:17)
[2017-12-10] MEDS: ATORVASTATIN CALCIUM 10 MG TABLET PO SCH (22:11)
[2017-12-10] MEDS: SENNOSIDES/DOCUSATE 8.6-50 MG 1 EACH TABLET PO SCH (22:11)
[2017-12-10] MEDS: DIVALPROEX SODIUM 250 MG TAB.SR.24H PO SCH (22:11)
[2017-12-11] MEDS: LANSOPRAZOLE 30 MG TAB.RAP.DR PO SCH (06:22)
[2017-12-11] MEDS: LEVOTHYROXINE SODIUM 0.1 MG TABLET PO SCH (06:22)
[2017-12-11] MEDS: AMOXICILLIN TR/POT CLAVULANATE 500-125 MG TAB PO SCH (06:22)
[2017-12-11] MEDS: POTASSI CL 40 MEQ/D5-1/2NS 1L 40 MEQ/1,000 ML RTUINJ IV PRN (06:22)
[2017-12-11] MEDS: LACTULOSE SYRUP 20 GM/30 ML UDCUP PO SCH (09:45)
[2017-12-11] MEDS: OMEGA-3 ACID ETHYL ESTERS 1 GM CAPSULE PO SCH (10:04)
[2017-12-11] MEDS: ENOXAPARIN SODIUM INJ 40 MG/0.4 ML DISP.SYRIN SUBCUT SCH (10:04)
[2017-12-11] MEDS: CALCIUM CARBONATE 250 MG/VITAMIN D3 125 UNIT TABLET PO SCH (10:04)
[2017-12-11] MEDS: ASPIRIN 325 MG TABLET PO SCH (10:04)
[2017-12-11] MEDS: RIVASTIGMINE TARTRATE 1.5 MG CAPSULE PO SCH (10:04)
[2017-12-11] MEDS: MULTIVITAMIN TABLET PO SCH (10:04)
[2017-12-11] MEDS: NYSTATIN TOPICAL POWDER 15 GM TP SCH (10:05)
--- NOTE | 2017-12-11 11:30 | PDOC TRANSFER SUMMARY ---
General - Admit/Disc Date/PCP Admission Date/Primary Care Provider: 12/06/17 01:38 Discharge Date: 12/11/17 - Discharge Diagnosis (1) Aspiration pneumonia Is this a current diagnosis for this admission?: Yes (2) Acute respiratory failure Is this a current diagnosis for this admission?: Yes (3) Fecal impaction Is this a current diagnosis for this admission?: Yes (4) Hypernatremia Is this a current diagnosis for this admission?: Yes (5) Hypothyroidism Is this a current diagnosis for this admission?: Yes (6) Dementia Is this a current diagnosis for this admission?: Yes (7) Altered mental status Is this a current diagnosis for this admission?: Yes (8) Abdominal pain Is this a current diagnosis for this admission?: Yes (9) Hypokalemia Is this a current diagnosis for this admission?: Yes - Additional Information Resuscitation Status: Do Not Resuscitate Discharge Diet: Regular Discharge Activity: Activity As Tolerated Home Medications: Acetaminophen [Tylenol 325 mg Tablet] 650 mg PO Q6HP PRN 12/06/17 Aspirin [Aspirin 325 mg Tablet] 325 mg PO DAILY 12/06/17 Calcium Carbonate/Vitamin D3 [Calcium 600-Vit D3 200 Tablet] 1 each PO DAILY 09/24 Cold Cream/Zinc Oxide/Star/Jm [Dermacloud Ointment] 430 gm TP ASDIR PRN Divalproex Sodium [Depakote ER 250 mg Tablet] 750 mg PO QHS 12/06/17 Guaifenesin [Robafen] 200 mg PO Q4HP PRN 12/06/17 Lactulose [Constulose 10 gm/15 mL Oral Solution] 10 gm PO DAILY 12/06/17 Levothyroxine Sodium [Synthroid 0.1 mg Tablet] 0.1 mg PO Q6AM 12/06/17 Magnesium Hydroxide [Milk of Magnesia 30 ml Udcup] 30 ml PO DAILYP PRN 12/06/17 Meloxicam [Mobic] 7.5 mg PO DAILYP PRN 12/06/17 Memantine HCl [Namenda Xr] 28 mg PO DAILY 12/06/17 Multivitamin [Tab-A-Juaquin] 1 each PO DAILY 12/06/17 Neomy Sulf/Bacitrac Zn/Poly [Triple Antibiotic Ointment] 1 applic TP DAILYP PRN 12/06/17 [place]-3S/Dha/Epa/Fish Oil [Fish Oil 1,200 mg Softgel] 1 each PO DAILY 12/06/17 Omeprazole 40 mg PO QAM 12/06/17 Pravastatin Sodium [Pravachol] 40 mg PO DAILY 12/06/17 Rivastigmine Tartrate [Rivastigmine] 3 mg PO BIDACBS 12/06/17 Saccharomyces Boulardii [Probiotic] 250 mg PO DAILY 12/06/17 Amox Tr/Potassium Clavulanate [Augmentin "500" Tablet] 1 tab PO Q8 5 Days #15 tablet 12/11/17 Nystatin [Mycostatin Topical Powder 15 gm] 1 applic TP BID bottle 12/11/17 Sennosides/Docusate 8.6-50 mg [Senna Plus Tablet] 2 each PO QHS tablet History of Present Illness Admission Date/PCP: 12/06/17 01:38 History of Present Illness: RIGOBERTO VENEGAS is a 77 year old female who is a [facility] resident brought with chief complaint from [facility] of altered mental status. Since patient has underlying advanced dementia and cognitive impairment history taking was unobtainable. The history was obtained from ER attending notes. As per ER attending note patient was not acting at her baseline and no such explanation was provided as to the specifics of confusion. CT of abdomen revealed extensive diverticulosis without diverticulitis and fecal impaction. After ER attending disimpacted her, patient had an episode of vomiting and possibly aspiration. Patient desaturated to lower 80s. Patient was admitted under the hospitalist service. Hospital Course Hospital Course: Patient was admitted under the hospitalist service since patient experienced an aspiration episode that provoke acute respiratory failure. Patient was treated with IV antibiotic with further improvement. Patient was transitioned to Augmentin 500 mg 1 p.o. 3 times daily. On discharge she is to continue these medication for the following 5 days.She was weaned off oxygen and has been saturating well at room air. Patient was evaluated by speech therapy and is to continue regular diet. All electrolyte abnormalities were corrected. Hypernatremia responded to IV hydration and it was deemed to be due to volume contraction. Constipation resolved with bowel regimen. Patient was evaluated by physical therapy however patient did not participate and basically remained on bedrest. Case management follow through with patient's son and patient is to return back to the [facility]. Since patient had achieved maximum benefit of hospitalization stay prompted to discharge. Recommend incoming facility to work with patient's son regarding end-of-life issues including not to intervene or comfort measures Physical Exam Vital Signs: Temp Pulse Resp BP Pulse Ox 99.2 F 105 H 17 104/60 95 12/10/17 23:21 12/10/17 23:21 12/10/17 23:21 12/11/17 00:00 12/10/17 23:21 Intake & Output 12/10/17 12/11/17 12/12/17 06:59 06:59 06:59 Intake Total 3406 3279 Balance 3406 3279 Weight 66.4 kg 66.1 kg General appearance: PRESENT: no acute distress, cooperative, well-developed, well-nourished Head exam: PRESENT: atraumatic, normocephalic Eye exam: PRESENT: conjunctiva pink, EOMI, PERRLA Ear exam: PRESENT: normal external ear exam Mouth exam: PRESENT: moist Neck exam: PRESENT: full ROM. ABSENT: JVD, lymphadenopathy, tenderness Respiratory exam: PRESENT: clear to auscultation lyssa Cardiovascular exam: PRESENT: RRR, systolic murmur. ABSENT: diastolic murmur Vascular exam: PRESENT: normal capillary refill GI/Abdominal exam: PRESENT: normal bowel sounds, soft. ABSENT: tenderness Extremities exam: PRESENT: full ROM. ABSENT: pedal edema, tenderness Musculoskeletal exam: ABSENT: ambulatory Neurological exam: PRESENT: alert, awake. ABSENT: oriented to person, oriented to place, oriented to time, oriented to situation Psychiatric exam: PRESENT: appropriate affect, normal mood Skin exam: PRESENT: intact, normal color Results Laboratory Results: 12/09/17 05:05 12/09/17 05:05 Impressions: Abdomen/Pelvis CT 12/05/17 19:46 IMPRESSION: 1. Stable hepatic cysts. 2. Mild ductal dilatation suggesting prior cholecystectomy. Surgical clips are not seen, however. 3. Thickening of both adrenal glands that appears stable. 4. Extensive diverticulosis coli with no acute inflammatory changes. 5. Considerable stool. A large amount of stool in the rectum raises the possibility of fecal impaction. 6. Scoliosis and mild lumbar degenerative disc changes. Head CT 12/06/17 00:00 IMPRESSION: MICROVASCULAR ISCHEMIA AND GENERALIZED ATROPHY. NO ACUTE IMAGING FINDINGS IN THE BRAIN EVIDENCE OF ACUTE STROKE: NO. Modified Barium Swallow 12/07/17 00:00 IMPRESSION: DEEP LARYNGEAL PENETRATION WITHOUT ASPIRATION.PLEASE SEE SPEECH PATHOLOGIST REPORT FOR OTHER FINDINGS AND RECOMMENDATIONS. Chest X-Ray 12/08/17 00:00 IMPRESSION: Pulmonary vascular prominence with trace pleural effusions and mild bibasilar atelectasis Transfer Plan - Disposition Transfer Plan: Discharge to [facility] facility - Time Spent with Patient Time spent with patient: Greater than 30 Minutes Qualifiers - * PATIENT BEING DISCHARGED WITH ANY OF THE FOLLOWING DIAGNOSIS: No
[2017-12-11 15:40] VITALS: BP 96/59
--- NOTE | 2018-01-29 15:20 | Progress Note ---
Provider Note Provider Note: Acute respiratory failure was detected at the time of admission.
== END 2017-12-11 15:32 | DRG 177 ==
LOC: ER 19:24 → EH 12-06 01:38 → 5 12-06 05:36
PROVIDERS: ADMIT Internal Medicine; ATTEND Internal Medicine
DX: J69.0 Pneumonitis due to inhalation of food and vomit (principal); J96.00 Acute respiratory failure, unspecified whether with hypoxia or hypercapnia; E87.0 Hyperosmolality and hypernatremia; K56.41 Fecal impaction; E03.9 Hypothyroidism, unspecified; G30.9 Alzheimer's disease, unspecified; F02.80 Dementia in other diseases classified elsewhere, unspecified severity, without behavioral disturbance, psychotic disturbance, mood disturbance, and anxiety; E87.6 Hypokalemia; Z66 Do not resuscitate; K57.90 Diverticulosis of intestine, part unspecified, without perforation or abscess without bleeding; E78.00 Pure hypercholesterolemia, unspecified; I10 Essential (primary) hypertension; K21.9 Gastro-esophageal reflux disease without esophagitis; F32.9 Major depressive disorder, single episode, unspecified; M41.9 Scoliosis, unspecified; M51.36 Other intervertebral disc degeneration, lumbar region; R10.84 Generalized abdominal pain; R40.0 Somnolence; Z79.82 Long term (current) use of aspirin; Z79.899 Other long term (current) drug therapy
CPT/HCPCS: 36415; 51701; 70450; 71045; 71046; 74177; 74230; 80048; 80053; 81001; 82803; 82962; 83605; 83735; 85025; 85610; 87040; 87077; 87086; 93005; 93010; 96365; 99285; G8978-GP; G8979-GP; G8996-GN; G8997-GN; G8998-GN; J0295; J1650; J1953; J2543; J2765; J3480; J3490; J7060

== ENCOUNTER 2018-01-07 13:09 | Inpatient (IN) | payer MEDICARE ==
--- NOTE | 2018-01-07 13:50 | ER Document Report ---
ED General <CUCO CARR - Last Filed: 01/07/18 16:43> - General Mode of Arrival: Ambulatory Information source: Patient TRAVEL OUTSIDE OF THE [place] IN LAST 30 DAYS: No <CECE TURNER - Last Filed: 01/07/18 17:04> - General Chief Complaint: Altered Mental Status Stated Complaint: ALTERED MENTAL STATUS Time Seen by Provider: 01/07/18 13:34 Notes: Patient is a 77 year old female that presents to the emergency department today with complaints of altered mental status. According to EMS the patient vomited and then became unresponsive. Patient was febrile for EMS and was given rectal tylenol. History is limited. (CECE TURNER) - Related Data Allergies/Adverse Reactions: No Known Allergies Allergy (Verified 06/15/17 15:12) Past Medical History - General Information source: Patient - Social History Smoking Status: Unknown if Ever Smoked Family History: Reviewed & Not Pertinent - Past Medical History Cardiac Medical History: Reports: Hx Hypercholesterolemia, Hx Hypertension GI Medical History: Reports: Hx Gastroesophageal Reflux Disease Psychiatric Medical History: Reports: Hx Dementia, Hx Depression Past Surgical History: Reports: Hx Hysterectomy, Hx Orthopedic Surgery - carpal tunnel - Immunizations Hx Diphtheria, Pertussis, Tetanus Vaccination: Yes <CECE TURNER - Last Filed: 01/07/18 17:04> Review of Systems - Review of Systems -: Yes ROS unobtainable due to patient's medical condition <CECE TURNER - Last Filed: 01/07/18 17:04> Physical Exam - Vital signs Interpretation: Normal - General General appearance: Other - non-verbal - HEENT Head: Normocephalic, Atraumatic Eyes: Normal Pupils: PERRL - Respiratory Respiratory status: No respiratory distress Chest status: Nontender Breath sounds: Normal Chest palpation: Normal - Cardiovascular Rhythm: Regular Heart sounds: Normal auscultation Murmur: Yes - Loud, loudest over right chest - Abdominal Inspection: Normal Distension: No distension Bowel sounds: Normal Tenderness: Nontender Organomegaly: No organomegaly - Back Back: Normal, Nontender - Extremities General upper extremity: Normal inspection, Nontender. No: Edema General lower extremity: Normal inspection, Nontender. No: Edema - Neurological Neuro grossly intact: No - Severly demented. Non-verbal at baseline. - Psychological Associated symptoms: Other - unable to assess - Skin Skin Temperature: Warm Skin Moisture: Dry Skin Color: Normal <CECE TURNER - Last Filed: 01/07/18 17:04> - Vital signs Vitals: Temp Resp BP Pulse Ox 102.0 F H 22 H 88/74 L 93 01/07/18 13:30 01/07/18 13:30 01/07/18 13:30 01/07/18 13:30 Course - Laboratory Result Diagrams: 01/07/18 12:30 01/07/18 12:30 - Diagnostic Test Radiology reviewed: Image reviewed, Reports reviewed - Mild basilar atelectasis - EKG Interpretation by Ak EKG shows normal: Sinus rhythm, [place], QRS Complexes, ST-T Waves. abnormal: Intervals - Prolonged QT interval Rate: Normal - 93 Rhythm: NSR Voltage: Consistant with LVH P Waves: LAE When compared to previous EKG there are: No significant change - Consults Dr. Burciaga Time consulted: 16:40 Consulted provider: will come to ER <CUCO CARR - Last Filed: 01/07/18 16:43> - Laboratory Result Diagrams: 01/07/18 12:30 01/07/18 12:30 <CECE TURNER - Last Filed: 01/07/18 17:04> - Vital Signs Vital signs: Temp Pulse Resp BP Pulse Ox 98.8 F 17 113/70 95 01/07/18 15:12 01/07/18 15:02 01/07/18 15:02 01/07/18 15:02 - Laboratory Laboratory results interpreted by nd: 01/07/18 01/07/18 01/07/18 12:30 12:30 15:16 WBC 16.2 H Hct 35.4 L Seg Neuts % (Manual) 91 H Lymphocytes % (Manual) 4 L Abs Neuts (Manual) 14.7 H Glucose 122 H Direct Bilirubin 0.5 H AST 38 H Urine Protein 100 H Urine Blood LARGE H Urine Nitrite POSITIVE H Urine Urobilinogen 2.0 H Ur Leukocyte Esterase LARGE H Valproic Acid < 10.0 L Discharge - Discharge Admitting Provider: Hospitalist Unit Admitted: Telemetry <CUCO CARR - Last Filed: 01/07/18 16:43> <CECE TURNER - Last Filed: 06/03/18 17:04> - Discharge Clinical Impression: Urinary tract infection Qualifiers: Urinary tract infection type: site unspecified Hematuria presence: with hematuria Qualified Code(s): N39.0 - Urinary tract infection, site not specified Leukocytosis Qualifiers: Leukocytosis type: unspecified Qualified Code(s): D72.829 - Elevated white blood cell count, unspecified Fever Qualifiers: Fever type: unspecified Qualified Code(s): R50.9 - Fever, unspecified Dementia Qualifiers: Dementia type: unspecified type Dementia behavioral disturbance: without behavioral disturbance Qualified Code(s): F03.90 - Unspecified dementia without behavioral disturbance Scribe Attestation: 01/07/18 14:08 I personally performed the services described in the documentation, reviewed and edited the documentation which was dictated to the scribe in my presence, and it accurately records my words and actions. (CUCO CARR) Scribe Documentation - Scribe Written by Scribe:: Yunior Stone, 01/07/2018 1704 acting as scribe for :: Lorenzo <CECE UTRNER - Last Filed: 01/07/18 17:04>
[2018-01-07 14:18] LABS: ALANINE AMINOTRANSFERASE 11 U/L (9-52); ALBUMIN 3.6 g/dL (3.5-5.0); ALKALINE PHOSPHATASE 47 U/L (38-126); ANION GAP 10 (5-19); ASPARTATE AMINO TRANSFERASE 38 U/L (14-36); BILIRUBIN,DIRECT 0.5 mg/dL (0.0-0.4); BILIRUBIN,TOTAL 0.7 mg/dL (0.2-1.3); BLOOD UREA NITROGEN 20 mg/dL (7-20); CALCIUM 9.1 mg/dL (8.4-10.2); CARBON DIOXIDE 27 mmol/L (22-30); CHLORIDE 104 mmol/L (98-107); GLUCOSE 122 mg/dL (75-110); POTASSIUM 3.9 mmol/L (3.6-5.0); SODIUM 141.3 mmol/L (137-145); TOTAL PROTEIN 7.6 g/dL (6.3-8.2)
[2018-01-07 14:21] LABS: HEMATOCRIT 35.4 % (36.0-47.0); HEMOGLOBIN 12.1 g/dL (12.0-15.5); MEAN CORPUSCULAR HEMOGLOBIN 30.1 pg (27.0-33.4); MEAN CORPUSCULAR HGB CONC 34.1 g/dL (32.0-36.0); MEAN CORPUSCULAR VOLUME 88 fl (80-97); PLATELET COUNT 296 10^3/uL (150-450); RED BLOOD COUNT 4.02 10^6/uL (3.72-5.28); RED CELL DISTRIBUTION WIDTH 13.2 % (11.5-14.0); WHITE BLOOD COUNT 16.2 10^3/uL (4.0-10.5)
--- NOTE | 2018-01-07 14:23 | RADIOLOGY REPORT (SQ) ---
EXAM DESCRIPTION: CHEST SINGLE VIEW COMPLETED DATE/TIME: 01/07/2018 2:14 pm REASON FOR STUDY: Fever, recent admission for aspiration pneumonia COMPARISON: 12/08/2017 EXAM PARAMETERS: NUMBER OF VIEWS: One view. TECHNIQUE: Single frontal radiographic view of the chest acquired. RADIATION DOSE: NA LIMITATIONS: None. FINDINGS: LUNGS AND PLEURA: Basilar atelectasis. No acute opacities. MEDIASTINUM AND HILAR STRUCTURES: Chronic elevation of the right hemidiaphragm. HEART AND VASCULAR STRUCTURES: Heart enlarged without failure. BONES: No acute findings. HARDWARE: None in the chest. OTHER: No other significant finding. IMPRESSION: Mild basilar atelectasis. TECHNICAL DOCUMENTATION: JOB ID: [id number] [employer]- All Rights Reserved Reading location - IP/workstation name: [email or web address]
[2018-01-07 14:53] LABS: ABSOLUTE LYMPHOCYTES# (MANUAL) 0.6 10^3/uL (0.5-4.7); ABSOLUTE MONOCYTES # (MANUAL) 0.8 10^3/uL (0.1-1.4); ABSOLUTE NEUTROPHILS# (MANUAL) 14.7 10^3/uL (1.7-8.2); BASOPHILS % (MANUAL) 0 % (0-2); EOSINOPHILS % (MANUAL) 0 % (0-6); LYMPHOCYTES % (MANUAL) 4 % (13-45); MONOCYTES % (MANUAL) 5 % (3-13); SEGMENTED NEUTROPHILS % (MAN) 91 % (42-78); TOTAL CELLS COUNTED 100
[2018-01-07 14:54] LABS: OVALOCYTES 1+; PLATELET COMMENT ADEQUATE; POIKILOCYTOSIS 1+
[2018-01-07 15:35] LABS: AMORPHOUS SEDIMENT,URINE TRACE /HPF; APPEARANCE,URINE TURBID; BILIRUBIN,URINE NEGATIVE (NEGATIVE); COLOR,URINE AMBER; GLUCOSE, URINE NEGATIVE (NEGATIVE); KETONES,URINE NEGATIVE (NEGATIVE); LEUKOCYTE ESTERASE,URINE LARGE (NEGATIVE); NITRITE,URINE POSITIVE (NEGATIVE); PROTEIN,URINE 100 mg/dL (NEGATIVE); URINE SPECIFIC GRAVITY 1.015
[2018-01-07] MEDS ORDERED: NORMAL SALINE 1000 ML 1,000 ML IV ONE (15:54)
[2018-01-07] MEDS ORDERED: LEVOFLOXACIN 750 MG/D5W RTU 750 MG/150 ML RTUPB IV ONE (15:55)
[2018-01-07] MEDS ORDERED: MELOXICAM 7.5 MG TABLET PO PRN (16:46)
[2018-01-07] MEDS ORDERED: (PENDING PHARMACY ID) (Rivastigmine Tartrate [Rivastigmine] 3 MG) PO SCH (17:00)
[2018-01-07] MEDS ORDERED: [UNRECOGNIZED DRUG - OTHER] TOP SCH (17:00)
[2018-01-07] MEDS ORDERED: LAN TOP SCH (17:00)
[2018-01-07] MEDS ORDERED: COLD TOP SCH (17:00)
[2018-01-07] MEDS ORDERED: ZINC OXIDE TOP SCH (17:00)
[2018-01-07] MEDS ORDERED: (PENDING PHARMACY ID) (Lactulose [Constulose 10 Gm/15 Ml Oral Solution] 10 GM) PO SCH (17:00)
[2018-01-07] MEDS ORDERED: NORMAL SALINE 1000 ML 1,000 ML IV PRN (17:36)
[2018-01-07] MEDS ORDERED: ALBUTEROL SULFATE 0.083% NEB 2.5 MG/3 ML AMPUL NEB PRN (17:36)
[2018-01-07] MEDS ORDERED: ONDANSETRON 4 MG TAB.RAPDIS PO PRN (17:36)
[2018-01-07] MEDS ORDERED: ONDANSETRON HCL INJ/PF 4 MG/2 ML SDV IV PRN (17:36)
[2018-01-07] MEDS: LACTULOSE SYRUP 20 GM/30 ML UDCUP PO SCH (17:52)
--- NOTE | 2018-01-07 17:53 | PDOC H&P ---
History of Present Illness Admission Date/PCP: 01/07/18 16:54 NO LOCAL MD Patient complains of: Fever History of Present Illness: RIGOBERTO JEAN-BAPTISTE is a 77 year old female with Dementia lines in the [facility] Hypothyroidism Hypertension Hyperlipidemia GERD Depression Healthcare POA is her son Pérez Jean-Baptiste ph [phone] He states that she is to be a [employer]. The patient was sent to the ER due to fever and was found to have a UTI. She was treated with IV fluids and Levaquin and referred for admission. Her son is at the bedside and plan of care was discussed with him. The patient is awake and alert, pleasantly demented, does not follow commands. No facial droop, not in distress. Past Medical History Cardiac Medical History: Reports: Hyperlipidema, Hypertension GI Medical History: Reports: Gastroesophageal Reflux Disease Psychiatric Medical History: Reports: Dementia, Depression Past Surgical History Past Surgical History: Reports: Hysterectomy, Orthopedic Surgery - carpal tunnel Social History Smoking Status: Unknown if Ever Smoked Frequency of Alcohol Use: None Hx Recreational Drug Use: No Drugs: None Hx Prescription Drug Abuse: No - Advance Directive Resuscitation Status: Full Code Family History Family History: Hypertension Parental Family History Reviewed: Yes Children Family History Reviewed: Yes Sibling(s) Family History Reviewed.: Yes Medication/Allergy Home Medications: Acetaminophen [Tylenol 325 mg Tablet] 650 mg PO Q6HP PRN 12/06/17 Aspirin [Aspirin 325 mg Tablet] 325 mg PO DAILY 12/06/17 Calcium Carbonate/Vitamin D3 [Calcium 600-Vit D3 200 Tablet] 1 each PO DAILY 09/24 Cold Cream/Zinc Oxide/Star/Jm [Dermacloud Ointment] 430 gm TP ASDIR PRN Divalproex Sodium [Depakote ER 250 mg Tablet] 750 mg PO QHS 12/06/17 Guaifenesin [Robafen] 200 mg PO Q4HP PRN 12/06/17 Lactulose [Constulose 10 gm/15 mL Oral Solution] 10 gm PO DAILY 12/06/17 Levothyroxine Sodium [Synthroid 0.1 mg Tablet] 0.1 mg PO Q6AM 12/06/17 Magnesium Hydroxide [Milk of Magnesia 30 ml Udcup] 30 ml PO DAILYP PRN 12/06/17 Meloxicam [Mobic] 7.5 mg PO DAILYP PRN 12/06/17 Memantine HCl [Namenda Xr] 28 mg PO DAILY 12/06/17 Multivitamin [Tab-A-Juaquin] 1 each PO DAILY 12/06/17 Neomy Sulf/Bacitrac Zn/Poly [Triple Antibiotic Ointment] 1 applic TP DAILYP PRN 12/06/17 Ulysses-3S/Dha/Epa/Fish Oil [Fish Oil 1,200 mg Softgel] 1 each PO DAILY 12/06/17 Omeprazole 40 mg PO QAM 12/06/17 Pravastatin Sodium [Pravachol] 40 mg PO DAILY 12/06/17 Rivastigmine Tartrate [Rivastigmine] 3 mg PO BIDACBS 12/06/17 Saccharomyces Boulardii [Probiotic] 250 mg PO DAILY 12/06/17 Amox Tr/Potassium Clavulanate [Augmentin "500" Tablet] 1 tab PO Q8 5 Days #15 tablet 12/11/17 Nystatin [Mycostatin Topical Powder 15 gm] 1 applic TP BID bottle 12/11/17 Sennosides/Docusate 8.6-50 mg [Senna Plus Tablet] 2 each PO QHS tablet Allergies/Adverse Reactions: No Known Allergies Allergy (Verified 06/15/17 15:12) Review of Systems ROS unobtainable: Due to mental status Physical Exam Vital Signs: Temp Pulse Resp BP Pulse Ox 98.8 F 22 H 125/89 H 96 01/07/18 15:12 01/07/18 17:00 01/07/18 17:00 01/07/18 17:00 Intake & Output 01/06/18 01/07/18 01/08/18 06:59 06:59 06:59 Weight 54.431 kg General appearance: PRESENT: no acute distress, well-developed Head exam: PRESENT: normocephalic Eye exam: PRESENT: PERRLA. ABSENT: scleral icterus Ear exam: PRESENT: normal external ear exam Neck exam: ABSENT: tracheal deviation Respiratory exam: PRESENT: symmetrical, unlabored. ABSENT: wheezes Cardiovascular exam: PRESENT: RRR GI/Abdominal exam: PRESENT: normal bowel sounds, soft. ABSENT: tenderness Rectal exam: PRESENT: deferred Gentrourinary exam: PRESENT: indwelling catheter Extremities exam: ABSENT: pedal edema Neurological exam: PRESENT: alert, awake Skin exam: PRESENT: rash - groin diaper rash Results Impressions: Chest X-Ray 01/07/18 13:51 IMPRESSION: Mild basilar atelectasis. Assessment & Plan - Diagnosis (1) Urinary tract infection Qualifiers: Urinary tract infection type: site unspecified Hematuria presence: with hematuria Qualified Code(s): N39.0 - Urinary tract infection, site not specified; R31.9 - Hematuria, unspecified; R31.9 - Hematuria, unspecified Is this a current diagnosis for this admission?: Yes Plan: IV fluids, antibiotics, follow up on cultures. (2) Diaper rash Is this a current diagnosis for this admission?: Yes Plan: Local care and barrier cream (3) Dementia Qualifiers: Dementia type: unspecified type Dementia behavioral disturbance: without behavioral disturbance Qualified Code(s): F03.90 - Unspecified dementia without behavioral disturbance Is this a current diagnosis for this admission?: Yes Plan: Stable- continue outpatient meds. Pureed diet (4) Hypothyroidism Qualifiers: Hypothyroidism type: acquired Qualified Code(s): E03.9 - Hypothyroidism, unspecified Is this a current diagnosis for this admission?: Yes Plan: Synthroid (5) DVT prophylaxis Is this a current diagnosis for this admission?: Yes Plan: S/C Lovenox (6) Full code status Is this a current diagnosis for this admission?: Yes - Time Time Spent: 50 to 70 Minutes
[2018-01-07] MEDS: NYSTATIN TOPICAL POWDER 15 GM TP SCH (18:00)
[2018-01-07] MEDS: ACETAMINOPHEN 325 MG TABLET PO PRN (19:05)
[2018-01-07] MEDS ORDERED: IBUPROFEN 400 MG TABLET PO ONE (20:16)
--- NOTE | 2018-01-07 22:56 | EKG REPORT ---
SEVERITY:- ABNORMAL ECG - SINUS RHYTHM LEFT ATRIAL ABNORMALITY PROBABLE LEFT VENTRICULAR HYPERTROPHY BORDERLINE PROLONGED QT INTERVAL : Confirmed by: Mauricio Randall 07-Jan-2018 22:55:06
[2018-01-08] MEDS ORDERED: NORMAL SALINE 1000 ML 1,000 ML IV ONE (00:25)
[2018-01-08] MEDS: NORMAL SALINE 1000 ML 1,000 ML IV PRN ×3 (00:33→06:06)
[2018-01-08] MEDS: SENNOSIDES/DOCUSATE 8.6-50 MG 1 EACH TABLET PO SCH ×2 (00:34→21:01)
[2018-01-08] MEDS: ATORVASTATIN CALCIUM 10 MG TABLET PO SCH (00:34)
[2018-01-08] MEDS: DIVALPROEX SODIUM 250 MG TAB.SR.24H PO SCH ×2 (00:34→21:01)
[2018-01-08] MEDS: LANSOPRAZOLE 30 MG TAB.RAP.DR PO SCH (05:06)
[2018-01-08] MEDS: LEVOTHYROXINE SODIUM 0.1 MG TABLET PO SCH (05:06)
[2018-01-08 05:46] LABS: ABSOLUTE LYMPHOCYTES (AUTO) 0.7 10^3/uL (0.5-4.7); ABSOLUTE MONOCYTES (AUTO) 1.3 10^3/uL (0.1-1.4); ABSOLUTE NEUT (AUTO) 9.6 10^3/uL (1.7-8.2); BASOPHILS % (AUTO) 0.3 % (0-2); EOSINOPHILS % (AUTO) 0.1 % (0-6); HEMATOCRIT 32.2 % (36.0-47.0); HEMOGLOBIN 10.8 g/dL (12.0-15.5); LYMPHOCYTES % (AUTO) 5.9 % (13-45); MEAN CORPUSCULAR HEMOGLOBIN 29.9 pg (27.0-33.4); MEAN CORPUSCULAR HGB CONC 33.7 g/dL (32.0-36.0); MEAN CORPUSCULAR VOLUME 89 fl (80-97); PLATELET COUNT 215 10^3/uL (150-450); RED BLOOD COUNT 3.63 10^6/uL (3.72-5.28); RED CELL DISTRIBUTION WIDTH 12.9 % (11.5-14.0); SEGMENTED NEUTROPHILS % (AUTO) 82.7 % (42-78); TOTAL CELLS COUNTED % (AUTO) 100 %; WHITE BLOOD COUNT 11.6 10^3/uL (4.0-10.5)
[2018-01-08 06:14] LABS: ANION GAP 10 (5-19); BLOOD UREA NITROGEN 15 mg/dL (7-20); CALCIUM 8.6 mg/dL (8.4-10.2); CARBON DIOXIDE 23 mmol/L (22-30); CHLORIDE 111 mmol/L (98-107); GLUCOSE 92 mg/dL (75-110); PHOSPHORUS 3.4 mg/dL (2.5-4.5); POTASSIUM 3.7 mmol/L (3.6-5.0); SODIUM 144.4 mmol/L (137-145)
[2018-01-08] MEDS: ACETAMINOPHEN 325 MG TABLET PO PRN (08:14)
[2018-01-08] MEDS ORDERED: (PENDING PHARMACY ID) (Memantine Hcl [Namenda Xr] 28 MG) PO SCH (10:00)
[2018-01-08] MEDS ORDERED: CALCIUM CARBONATE 250 MG/VITAMIN D3 125 UNIT TABLET PO SCH (10:00)
[2018-01-08] MEDS ORDERED: SACCHAROMYCES BOULARDII 250 MG PO SCH (10:00)
[2018-01-08] MEDS ORDERED: (PENDING PHARMACY ID) (Calcium Carbonate/Vitamin D3 [Calcium 600-Vit D3 200 Tablet] 1 EACH PO SCH (10:00)
[2018-01-08] MEDS ORDERED: (PENDING PHARMACY ID) (Pravastatin Sodium [Pravachol] 40 MG) PO SCH (10:00)
[2018-01-08] MEDS ORDERED: CEFTRIAXONE 1 GM/D5W RTU 1 GM/50 ML RTUPB IV SCH (10:00)
[2018-01-08] MEDS: LACTOBACILLUS ACIDOPHILUS 250 MG TAB PO SCH ×2 (10:41→17:17)
[2018-01-08] MEDS: ASPIRIN 325 MG TABLET PO SCH (10:42)
[2018-01-08] MEDS: MULTIVITAMIN TABLET PO SCH (10:42)
[2018-01-08] MEDS: ENOXAPARIN SODIUM INJ 40 MG/0.4 ML DISP.SYRIN SUBCUT SCH (10:43)
[2018-01-08] MEDS: RIVASTIGMINE TARTRATE 1.5 MG CAPSULE PO SCH (10:52)
[2018-01-08] MEDS: NYSTATIN TOPICAL POWDER 15 GM TP SCH ×2 (10:53→17:51)
[2018-01-08] MEDS ORDERED: CEFTRIAXONE SODIUM 1,000 MG in DEXTROSE 5%-WATER 50 ML IV ONE (11:00)
--- NOTE | 2018-01-08 12:42 | PDOC PROGRESS REPORT ---
Subjective Progress Note for:: 01/08/18 Subjective:: 77 yr old female with severe dementia, resident of [facility]. Presented with fever and UTI. Awake and alert, smiles at me but does not speak or follow commands. Reason For Visit: URINARY TRACT INFECTION Physical Exam Vital Signs: Temp Pulse Resp BP Pulse Ox 99.3 F 99 18 114/75 97 01/08/18 11:19 01/08/18 11:19 01/08/18 11:19 01/08/18 11:19 01/08/18 11:19 Intake & Output 01/07/18 01/08/18 01/09/18 06:59 06:59 06:59 Intake Total 800 Balance 800 Weight 68.9 kg General appearance: PRESENT: no acute distress Head exam: PRESENT: normocephalic Eye exam: PRESENT: PERRLA Mouth exam: PRESENT: moist Teeth exam: PRESENT: edentulous Respiratory exam: PRESENT: symmetrical, unlabored. ABSENT: wheezes Cardiovascular exam: PRESENT: RRR GI/Abdominal exam: PRESENT: normal bowel sounds, soft. ABSENT: tenderness Rectal exam: PRESENT: deferred Gentrourinary exam: PRESENT: indwelling catheter Extremities exam: ABSENT: pedal edema Neurological exam: PRESENT: alert, awake Skin exam: PRESENT: rash - diaper rash over mons pubis, labia and inner thighs Results Laboratory Results: 01/08/18 05:19 01/08/18 05:19 01/08/18 01/08/18 01/08/18 05:19 05:19 05:19 WBC 11.6 H RBC 3.63 L Hgb 10.8 L Hct 32.2 L MCV 89 MCH 29.9 MCHC 33.7 RDW 12.9 Plt Count 215 Seg Neutrophils % 82.7 H Lymphocytes % 5.9 L Monocytes % 11.0 Eosinophils % 0.1 Basophils % 0.3 Absolute Neutrophils 9.6 H Absolute Lymphocytes 0.7 Absolute Monocytes 1.3 Absolute Eosinophils 0.0 Absolute Basophils 0.0 Sodium 144.4 Potassium 3.7 Chloride 111 H Carbon Dioxide 23 Anion Gap 10 BUN 15 Creatinine 0.50 L Est GFR ( Amer) > 60 Est GFR (Non-Af Amer) > 60 Glucose 92 Calcium 8.6 Phosphorus 3.4 Magnesium 1.9 TSH 2.44 Impressions: Chest X-Ray 01/07/18 13:51 IMPRESSION: Mild basilar atelectasis. Assessment & Plan - Diagnosis (1) Urinary tract infection Qualifiers: Urinary tract infection type: site unspecified Hematuria presence: with hematuria Qualified Code(s): N39.0 - Urinary tract infection, site not specified; R31.9 - Hematuria, unspecified; R31.9 - Hematuria, unspecified Is this a current diagnosis for this admission?: Yes Plan: IV fluids, day2 Rocephin urine culture growing GNR (2) Diaper rash Is this a current diagnosis for this admission?: Yes Plan: Local care and barrier cream (3) Dementia Qualifiers: Dementia type: unspecified type Dementia behavioral disturbance: without behavioral disturbance Qualified Code(s): F03.90 - Unspecified dementia without behavioral disturbance Is this a current diagnosis for this admission?: Yes Plan: Stable- continue outpatient meds. Pureed diet (4) Hypothyroidism Qualifiers: Hypothyroidism type: acquired Qualified Code(s): E03.9 - Hypothyroidism, unspecified Is this a current diagnosis for this admission?: Yes Plan: Synthroid (5) DVT prophylaxis Is this a current diagnosis for this admission?: Yes Plan: S/C Lovenox (6) Full code status Is this a current diagnosis for this admission?: Yes - Time Time Spent with patient: 25-34 minutes
[2018-01-08] MEDS ORDERED: FUROSEMIDE INJ/PF 20 MG/2 ML SDV ONE (14:24)
[2018-01-08] MEDS ORDERED: FUROSEMIDE INJ/PF 100 MG/10 ML SDV ONE (14:43)
[2018-01-08] MEDS ORDERED: LEVALBUTEROL HCL NEB 0.63 MG/3 ML AMPUL NEB PRN (14:45)
[2018-01-08] MEDS ORDERED: FUROSEMIDE INJ/PF 20 MG/2 ML SDV IV ONE ×2 (15:00→16:00)
--- NOTE | 2018-01-08 15:20 | RADIOLOGY REPORT (SQ) ---
EXAM DESCRIPTION: CHEST SINGLE VIEW COMPLETED DATE/TIME: 01/08/2018 3:11 pm REASON FOR STUDY: Dyspnea COMPARISON: 01/07/2018. EXAM PARAMETERS: NUMBER OF VIEWS: One view. TECHNIQUE: Single frontal radiographic view of the chest acquired. RADIATION DOSE: NA LIMITATIONS: None. FINDINGS: LUNGS AND PLEURA: Increasing airspace disease in the right lower lobe and probably retroca rdiac left lower lobe. No large pleural effusion. MEDIASTINUM AND HILAR STRUCTURES: No masses. Contour normal. HEART AND VASCULAR STRUCTURES: Heart normal in size. Normal vasculature. BONES: No acute findings. HARDWARE: None in the chest. OTHER: No other significant finding. IMPRESSION: INCREASING AIRSPACE DISEASE IN THE LUNG BASES, CONCERNING FOR DEVELOPING PNEUMONIA. TECHNICAL DOCUMENTATION: JOB ID: [id number] [employer]- All Rights Reserved Reading location - IP/workstation name: [facility]
[2018-01-08] MEDS ORDERED: DEXTROSE 50%-WATER 25 GM/50 ML DISP.SYRIN IV PRN ×2 (15:26)
[2018-01-08] MEDS ORDERED: DEXTROSE 40% GEL 15 GM TUBE PO PRN ×2 (15:26)
[2018-01-08] MEDS ORDERED: GLUCAGON,HUMAN RECOMB 1 MG INJ SUBCUT PRN (15:26)
[2018-01-08] MEDS ORDERED: LEVALBUTEROL HCL NEB 1.25 MG/3 ML AMPUL NEB ONE (16:00)
[2018-01-08] MEDS ORDERED: VANCOMYCIN HCL 0 MG in DEXTROSE 5%-WATER 250 ML IV NR (16:00)
[2018-01-08] MEDS: LACTULOSE SYRUP 20 GM/30 ML UDCUP PO SCH (17:17)
[2018-01-08] MEDS: MEROPENEM 1 GM in NORMAL SALINE 50 ML IV SCH (17:51)
[2018-01-08] MEDS ORDERED: ZINC OXIDE TP SCH (18:00)
[2018-01-08] MEDS ORDERED: COLD TP SCH (18:00)
[2018-01-08] MEDS ORDERED: [UNRECOGNIZED DRUG - OTHER] TP SCH (18:00)
[2018-01-08] MEDS ORDERED: LAN TP SCH (18:00)
--- NOTE | 2018-01-08 19:56 | EKG REPORT ---
SEVERITY:- ABNORMAL ECG - SINUS TACHYCARDIA PROBABLE LVH WITH SECONDARY REPOL ABNRM PAC'S : Confirmed by: Alisha Barker MD 08-Jan-2018 19:55:57
[2018-01-08] MEDS: VANCOMYCIN HCL 1,000 MG in DEXTROSE 5%-WATER 250 ML IV SCH (21:04)
[2018-01-09] MEDS: MEROPENEM 1 GM in NORMAL SALINE 50 ML IV SCH ×3 (01:50→17:30)
[2018-01-09 05:33] LABS: ABSOLUTE LYMPHOCYTES (AUTO) 1.1 10^3/uL (0.5-4.7); ABSOLUTE MONOCYTES (AUTO) 1.1 10^3/uL (0.1-1.4); ABSOLUTE NEUT (AUTO) 8.1 10^3/uL (1.7-8.2); BASOPHILS % (AUTO) 0.3 % (0-2); EOSINOPHILS % (AUTO) 0.1 % (0-6); HEMATOCRIT 31.9 % (36.0-47.0); HEMOGLOBIN 11.1 g/dL (12.0-15.5); LYMPHOCYTES % (AUTO) 10.7 % (13-45); MEAN CORPUSCULAR HEMOGLOBIN 30.1 pg (27.0-33.4); MEAN CORPUSCULAR HGB CONC 34.7 g/dL (32.0-36.0); MEAN CORPUSCULAR VOLUME 87 fl (80-97); PLATELET COUNT 246 10^3/uL (150-450); RED BLOOD COUNT 3.67 10^6/uL (3.72-5.28); RED CELL DISTRIBUTION WIDTH 12.8 % (11.5-14.0); SEGMENTED NEUTROPHILS % (AUTO) 77.9 % (42-78); TOTAL CELLS COUNTED % (AUTO) 100 %; WHITE BLOOD COUNT 10.3 10^3/uL (4.0-10.5)
[2018-01-09] MEDS: LANSOPRAZOLE 30 MG TAB.RAP.DR PO SCH (05:42)
[2018-01-09 05:57] LABS: ANION GAP 13 (5-19); BLOOD UREA NITROGEN 15 mg/dL (7-20); CALCIUM 8.9 mg/dL (8.4-10.2); CARBON DIOXIDE 27 mmol/L (22-30); CHLORIDE 105 mmol/L (98-107); GLUCOSE 91 mg/dL (75-110); PHOSPHORUS 3.8 mg/dL (2.5-4.5); POTASSIUM 3.1 mmol/L (3.6-5.0)
[2018-01-09] MEDS: ACETAMINOPHEN 650 MG SUPP.RECT PR PRN ×3 (08:03→23:04)
[2018-01-09] MEDS ORDERED: MAGNESIUM SULFATE/D5W 1 GM/100 ML RTUPB IV SCH (09:30)
[2018-01-09] MEDS: ENOXAPARIN SODIUM INJ 40 MG/0.4 ML DISP.SYRIN SUBCUT SCH (09:34)
[2018-01-09] MEDS: VANCOMYCIN HCL 1,000 MG in DEXTROSE 5%-WATER 250 ML IV SCH ×2 (09:44→21:07)
[2018-01-09] MEDS ORDERED: CEFTRIAXONE SODIUM 1,000 MG in DEXTROSE 5%-WATER 50 ML IV SCH (10:00)
[2018-01-09] MEDS: MULTIVITAMIN TABLET PO SCH (11:38)
[2018-01-09] MEDS: POTASSI CL 20 MEQ/50 ML RIDER 20 MEQ/50 ML RTUPB IV SCH ×3 (11:38→15:46)
[2018-01-09] MEDS: LACTOBACILLUS ACIDOPHILUS 250 MG TAB PO SCH ×2 (11:38→17:23)
[2018-01-09] MEDS: NYSTATIN TOPICAL POWDER 15 GM TP SCH ×2 (11:39→17:31)
--- NOTE | 2018-01-09 13:43 | PDOC PROGRESS REPORT ---
Subjective Progress Note for:: 01/09/18 Subjective:: 77 yr old female with severe dementia, resident of [facility]. Presented with fever and UTI. Awake and alert, smiles at me but does not speak or follow commands. She developed an acute episode of dyspnea and hypoxia on 01/08/18 secondary to aspiration. Is doing better now. Is npo, pending video barium swallow Continues to have fevers. Blood and Urine cultures pending. Day 2 of Vancomycin and Meropenem Reason For Visit: URINARY TRACT INFECTION Physical Exam Vital Signs: Temp Pulse Resp BP Pulse Ox 102.2 F H 116 H 24 H 147/80 H 100 01/09/18 12:03 01/09/18 12:03 01/09/18 12:03 01/09/18 12:03 01/09/18 12:03 Intake & Output 01/08/18 01/09/18 01/10/18 06:59 06:59 06:59 Intake Total 800 600 0 Output Total 3250 175 Balance 800 -2650 -175 Weight 68.9 kg 63.8 kg General appearance: PRESENT: no acute distress Ear exam: PRESENT: normal external ear exam Respiratory exam: PRESENT: rhonchi, symmetrical, unlabored Cardiovascular exam: PRESENT: RRR GI/Abdominal exam: PRESENT: normal bowel sounds, soft. ABSENT: tenderness Rectal exam: PRESENT: deferred Gentrourinary exam: PRESENT: indwelling catheter Extremities exam: ABSENT: pedal edema Neurological exam: PRESENT: alert, awake Results Laboratory Results: 01/09/18 04:47 01/09/18 04:47 01/09/18 01/09/18 04:47 04:47 WBC 10.3 RBC 3.67 L Hgb 11.1 L Hct 31.9 L MCV 87 MCH 30.1 MCHC 34.7 RDW 12.8 Plt Count 246 Seg Neutrophils % 77.9 Lymphocytes % 10.7 L Monocytes % 11.0 Eosinophils % 0.1 Basophils % 0.3 Absolute Neutrophils 8.1 Absolute Lymphocytes 1.1 Absolute Monocytes 1.1 Absolute Eosinophils 0.0 Absolute Basophils 0.0 Sodium 145.0 Potassium 3.1 L Chloride 105 Carbon Dioxide 27 Anion Gap 13 BUN 15 Creatinine 0.48 L Est GFR ( Amer) > 60 Est GFR (Non-Af Amer) > 60 Glucose 91 Calcium 8.9 Phosphorus 3.8 Magnesium 1.7 01/08/18 05:19 NT-Pro-B Natriuret Pep 6340 H Impressions: Chest X-Ray 01/08/18 00:00 IMPRESSION: INCREASING AIRSPACE DISEASE IN THE LUNG BASES, CONCERNING FOR DEVELOPING PNEUMONIA. Assessment & Plan - Diagnosis (1) Urinary tract infection Qualifiers: Urinary tract infection type: site unspecified Hematuria presence: with hematuria Qualified Code(s): N39.0 - Urinary tract infection, site not specified; R31.9 - Hematuria, unspecified; R31.9 - Hematuria, unspecified Is this a current diagnosis for this admission?: Yes Plan: Blood and Urine cultures pending. Day 2 of Vancomycin and Meropenem (2) Diaper rash Is this a current diagnosis for this admission?: Yes Plan: Local care and barrier cream (3) Dementia Qualifiers: Dementia type: unspecified type Dementia behavioral disturbance: without behavioral disturbance Qualified Code(s): F03.90 - Unspecified dementia without behavioral disturbance Is this a current diagnosis for this admission?: Yes Plan: Stable- continue outpatient meds. Pureed diet (4) Hypothyroidism Qualifiers: Hypothyroidism type: acquired Qualified Code(s): E03.9 - Hypothyroidism, unspecified Is this a current diagnosis for this admission?: Yes Plan: Synthroid (5) DVT prophylaxis Is this a current diagnosis for this admission?: Yes Plan: S/C Lovenox (6) Full code status Is this a current diagnosis for this admission?: Yes - Time Time Spent with patient: 35 or more minutes
[2018-01-09] MEDS: LACTULOSE SYRUP 20 GM/30 ML UDCUP PO SCH (17:23)
[2018-01-09] MEDS ORDERED: MAGNESIUM SULFATE/D5W 1 GM/100 ML RTUPB IV ONE (18:00)
[2018-01-09] MEDS: SENNOSIDES/DOCUSATE 8.6-50 MG 1 EACH TABLET PO SCH (21:05)
[2018-01-09] MEDS: DIVALPROEX SODIUM 250 MG TAB.SR.24H PO SCH (21:05)
[2018-01-10] MEDS: MEROPENEM 1 GM in NORMAL SALINE 50 ML IV SCH ×3 (01:18→18:40)
[2018-01-10] MEDS: ACETAMINOPHEN 650 MG SUPP.RECT PR PRN (03:15)
[2018-01-10] MEDS: LANSOPRAZOLE 30 MG TAB.RAP.DR PO SCH (05:06)
[2018-01-10 09:45] LABS: ANION GAP 8 (5-19); BLOOD UREA NITROGEN 16 mg/dL (7-20); CALCIUM 8.6 mg/dL (8.4-10.2); CARBON DIOXIDE 30 mmol/L (22-30); CHLORIDE 104 mmol/L (98-107); GLUCOSE 104 mg/dL (75-110); PHOSPHORUS 3.5 mg/dL (2.5-4.5); POTASSIUM 3.3 mmol/L (3.6-5.0); SODIUM 142.2 mmol/L (137-145)
[2018-01-10 09:48] LABS: VANCOMYCIN,TROUGH 9.5 ug/mL (5.0-20.0)
[2018-01-10] MEDS: MULTIVITAMIN TABLET PO SCH (11:08)
[2018-01-10] MEDS: LACTOBACILLUS ACIDOPHILUS 250 MG TAB PO SCH ×2 (11:08→17:16)
[2018-01-10] MEDS: ENOXAPARIN SODIUM INJ 40 MG/0.4 ML DISP.SYRIN SUBCUT SCH (11:33)
[2018-01-10] MEDS: NYSTATIN TOPICAL POWDER 15 GM TP SCH ×2 (11:34→18:40)
--- NOTE | 2018-01-10 13:24 | RADIOLOGY REPORT (SQ) ---
EXAM DESCRIPTION: COOKIE SWALLOW COMPLETED DATE/TIME: 01/10/2018 9:29 am REASON FOR STUDY: possible aspiration DEMENTIA COMPARISON: Modified barium swallow 12/07/2017 TECHNIQUE: Videofluoroscopic swallowing examination was performed in conjunction with speech patholo gy. Videofluoroscopic imaging was obtained and reviewed and these are the findings: RADIATION DOSE: 1 minutes 42 seconds of fluoroscopy was used. 1 images saved to PACS. LIMITATIONS: None FINDINGS: The patient was brought into the fluoro room and placed upright on a modified barium swall ow chair. The patient was then given multiple consistencies mixed with barium to swallow under live fluoroscopic video guidance. According to the Speech Pathologist there was laryngeal penetration wit hout aspiration with thin liquids. IMPRESSION: LARYNGEAL PENETRATION WITH THIN LIQUIDS. NO ASPIRATION SEEN.PLEASE SEE SPEECH PATHOLOGI ST REPORT FOR OTHER FINDINGS AND RECOMMENDATIONS. COMMENT: Quality ID [id number]: Final reports for procedures using fluoroscopy that document radiation exp osure indices, or exposure time and number of fluorographic images (if radiation exposure indices are not available) TECHNICAL DOCUMENTATION: JOB ID: [id number] [employer]- All Rights Reserved Reading location - IP/workstation name: [facility]
--- NOTE | 2018-01-10 14:08 | PDOC PROGRESS REPORT ---
Subjective Progress Note for:: 01/10/18 Subjective:: 77 yr old female with severe dementia, resident of [facility]. Presented with fever and UTI. Awake and alert, smiles at me but does not speak or follow commands. She developed an acute episode of dyspnea and hypoxia on 01/08/18 secondary to aspiration. Is doing better now. Is npo, pending video barium swallow. Urine cultures grew ESBL producing E. coli. Blood cultures pending. Day 3 of Vancomycin and Meropenem. Mycin stopped. Reason For Visit: URINARY TRACT INFECTION Physical Exam Vital Signs: Temp Pulse Resp BP Pulse Ox 98.2 F 84 20 119/65 96 01/10/18 12:00 01/10/18 12:00 01/10/18 12:00 01/10/18 12:00 01/10/18 12:00 Intake & Output 01/09/18 01/10/18 01/11/18 06:59 06:59 06:59 Intake Total 600 1052 Output Total 3250 700 200 Balance -2650 352 -200 Weight 63.8 kg 69.6 kg General appearance: PRESENT: no acute distress Head exam: PRESENT: normocephalic Ear exam: PRESENT: normal external ear exam Neck exam: ABSENT: tracheal deviation Respiratory exam: PRESENT: symmetrical, unlabored Cardiovascular exam: PRESENT: RRR, systolic murmur GI/Abdominal exam: PRESENT: normal bowel sounds, soft. ABSENT: tenderness Rectal exam: PRESENT: deferred Gentrourinary exam: PRESENT: indwelling catheter Extremities exam: ABSENT: pedal edema Results Laboratory Results: 01/09/18 04:47 01/10/18 08:36 01/10/18 08:36 Sodium 142.2 Potassium 3.3 L Chloride 104 Carbon Dioxide 30 Anion Gap 8 BUN 16 Creatinine 0.47 L Est GFR ( Amer) > 60 Est GFR (Non-Af Amer) > 60 Glucose 104 Calcium 8.6 Phosphorus 3.5 Magnesium 2.4 H 01/08/18 01/10/18 05:19 08:36 NT-Pro-B Natriuret Pep 6340 H 63632 H Impressions: Chest X-Ray 01/08/18 00:00 IMPRESSION: INCREASING AIRSPACE DISEASE IN THE LUNG BASES, CONCERNING FOR DEVELOPING PNEUMONIA. Modified Barium Swallow 01/10/18 00:00 IMPRESSION: LARYNGEAL PENETRATION WITH THIN LIQUIDS. NO ASPIRATION SEEN.PLEASE SEE SPEECH PATHOLOGIST REPORT FOR OTHER FINDINGS AND RECOMMENDATIONS. Assessment & Plan - Diagnosis (1) Urinary tract infection Qualifiers: Urinary tract infection type: site unspecified Hematuria presence: with hematuria Qualified Code(s): N39.0 - Urinary tract infection, site not specified; R31.9 - Hematuria, unspecified; R31.9 - Hematuria, unspecified Is this a current diagnosis for this admission?: Yes Plan: Day 3 of Meropenem (2) Diaper rash Is this a current diagnosis for this admission?: Yes Plan: Local care and barrier cream (3) Dementia Qualifiers: Dementia type: unspecified type Dementia behavioral disturbance: without behavioral disturbance Qualified Code(s): F03.90 - Unspecified dementia without behavioral disturbance Is this a current diagnosis for this admission?: Yes Plan: N.p.o. for now. Start diet per speech recommendations. (4) Hypothyroidism Qualifiers: Hypothyroidism type: acquired Qualified Code(s): E03.9 - Hypothyroidism, unspecified Is this a current diagnosis for this admission?: Yes Plan: Synthroid (5) DVT prophylaxis Is this a current diagnosis for this admission?: Yes Plan: S/C Lovenox (6) Full code status Is this a current diagnosis for this admission?: Yes (7) Aspiration pneumonia Qualifiers: Aspiration pneumonia type: unspecified Laterality: right Lung location: lower lobe of lung Qualified Code(s): J69.0 - Pneumonitis due to inhalation of food and vomit Is this a current diagnosis for this admission?: Yes Plan: Day 3 of antibiotics. - Time Time Spent with patient: 25-34 minutes
--- NOTE | 2018-01-10 14:29 | RADIOLOGY REPORT (SQ) ---
EXAM DESCRIPTION: CHEST SINGLE VIEW COMPLETED DATE/TIME: 01/10/2018 2:19 pm REASON FOR STUDY: Dyspnea, aspiration COMPARISON: 01/08/2018. EXAM PARAMETERS: NUMBER OF VIEWS: One view. TECHNIQUE: Single frontal radiographic view of the chest acquired. RADIATION DOSE: NA LIMITATIONS: None. FINDINGS: LUNGS AND PLEURA: Faint basilar densities with improved aeration. No pleural effusion or pneumothorax. MEDIASTINUM AND HILAR STRUCTURES: No masses. Contour normal. HEART AND VASCULAR STRUCTURES: Heart upper limits of normal in size. Normal vasculature. BONES: No acute findings. HARDWARE: None in the chest. OTHER: No other significant finding. IMPRESSION: IMPROVED AERATION IN THE LUNG BASES. TECHNICAL DOCUMENTATION: JOB ID: [id number] [employer]- All Rights Reserved Reading location - IP/workstation name: [email or web address]
[2018-01-10] MEDS: POTASSI CL 40 MEQ/D5-1/2NS 1L 40 MEQ/1,000 ML RTUINJ IV PRN (15:45)
[2018-01-10] MEDS: RIVASTIGMINE TARTRATE 1.5 MG CAPSULE PO SCH (17:16)
[2018-01-10] MEDS: LACTULOSE SYRUP 20 GM/30 ML UDCUP PO SCH (17:17)
--- NOTE | 2018-01-10 17:43 | ST Inp Modified Barium Swallow ---
Medical Diagnosis - Medical Diagnoses Medical Diagnosis Description & ICD-10 Code(s): aspiration pneumonia J69.0, dysphagia R13.10 Inpatient [facility] [place] - General Date: 01/10/18 Date of Onset: 01/08/18 - History History Obtained From: Other - EMR -: Medical - Patient admitted with fever and UTI, subsequently had episode of suspected aspiration. Medications: Medications Reviewed Allergies: No known allergies - Subjective Current Nutritional Means: NPO Current PO Diet: N/A (NPO) Current Symptoms: Aspiration Pain: unable to communicate, no signs/symptoms of pain - Objective Assessment: Upright, Left Lateral - Food Trials Food Trials Used: Thin liquids, Pureed The Patient: Required Assist, fed by ST, via spoon, via straw - Assessment Labial Function: Within Normal Limits Laryngeal Function: no volitional swallow, no volitional cough/clear - Pharyngeal Stage Initiation of Pharyngeal Stage: Delayed Reflex Delay Time (seconds): 3 Decreased Laryngeal Elevation: No Reduced Pressure Generation: No Reduced Tongue Base Retraction: No Pre-Swallowing Pooling in Valleculae: Mild Pre-Swallowing Pooling in Pyriforms: Mild Reduced Thyro-Hyiod Approximation: No Reduced Epiglottic Excursion: No Reduced Pharyngeal Peristalsis: No Multiple Swallows With: Cleared w/ Dry Swallow Post Swallow Residuals in Valleculae: None Post Swallow Residuals in Pyriforms: None - Impression/Summary Laryngeal Penetration: Yes, Deep, Silent, after swallow Tracheal Aspiration: after swallow - signs of trace aspiration with cup sip of thin liquid Productive Cough: No Compensatory Strategies: improved swallowing with single straw sips for liquids Patient Presents With: Pharyngeal stage dysph., Mild-Moderate Risk of Aspiration: Mild Risk of Nutritional Compromise: Mild - Recommendations Solid Diet Recommendations: Pureed Liquid Diet Recommendations: Thin Strict Aspitarion Precautions: Yes Dysphagia Therapy with ARCHITECTURAL EXAMINER: No Recommended Techniques: Fully Upright During Meal, Med Crushed in Applesauce Supervision: requires assistance - Time Total Time: 20 Total Timed Minutes: 20
[2018-01-10] MEDS: SENNOSIDES/DOCUSATE 8.6-50 MG 1 EACH TABLET PO SCH (22:10)
[2018-01-10] MEDS: ATORVASTATIN CALCIUM 10 MG TABLET PO SCH (22:11)
[2018-01-10] MEDS: DIVALPROEX SODIUM 250 MG TAB.SR.24H PO SCH (22:11)
[2018-01-11] MEDS: MEROPENEM 1 GM in NORMAL SALINE 50 ML IV SCH ×3 (02:45→17:45)
[2018-01-11] MEDS: LEVOTHYROXINE SODIUM 0.1 MG TABLET PO SCH (05:34)
[2018-01-11] MEDS: LANSOPRAZOLE 30 MG TAB.RAP.DR PO SCH (05:34)
[2018-01-11 07:09] LABS: ABSOLUTE EOSINOPHILS # (AUTO) 0.1 10^3/uL (0.0-0.6); ABSOLUTE MONOCYTES (AUTO) 0.5 10^3/uL (0.1-1.4); BASOPHILS % (AUTO) 0.3 % (0-2); EOSINOPHILS % (AUTO) 1.6 % (0-6); HEMATOCRIT 27.9 % (36.0-47.0); HEMOGLOBIN 9.7 g/dL (12.0-15.5); LYMPHOCYTES % (AUTO) 17.3 % (13-45); MEAN CORPUSCULAR HEMOGLOBIN 30.6 pg (27.0-33.4); MEAN CORPUSCULAR HGB CONC 34.8 g/dL (32.0-36.0); MEAN CORPUSCULAR VOLUME 88 fl (80-97); MONOCYTES % (AUTO) 8.6 % (3-13); PLATELET COUNT 231 10^3/uL (150-450); RED BLOOD COUNT 3.18 10^6/uL (3.72-5.28); SEGMENTED NEUTROPHILS % (AUTO) 72.2 % (42-78); TOTAL CELLS COUNTED % (AUTO) 100 %; WHITE BLOOD COUNT 5.6 10^3/uL (4.0-10.5)
[2018-01-11 07:37] LABS: ANION GAP 8 (5-19); BLOOD UREA NITROGEN 21 mg/dL (7-20); CALCIUM 8.4 mg/dL (8.4-10.2); CARBON DIOXIDE 28 mmol/L (22-30); CHLORIDE 110 mmol/L (98-107); GLUCOSE 111 mg/dL (75-110); PHOSPHORUS 2.9 mg/dL (2.5-4.5); POTASSIUM 3.5 mmol/L (3.6-5.0); SODIUM 145.5 mmol/L (137-145)
[2018-01-11] MEDS: ENOXAPARIN SODIUM INJ 40 MG/0.4 ML DISP.SYRIN SUBCUT SCH (10:09)
[2018-01-11] MEDS: POTASSI CL 40 MEQ/D5-1/2NS 1L 40 MEQ/1,000 ML RTUINJ IV PRN ×2 (10:09→23:42)
[2018-01-11] MEDS: RIVASTIGMINE TARTRATE 1.5 MG CAPSULE PO SCH ×2 (10:10→17:46)
[2018-01-11] MEDS: ASPIRIN 325 MG TABLET PO SCH (10:10)
[2018-01-11] MEDS: LACTOBACILLUS ACIDOPHILUS 250 MG TAB PO SCH ×2 (10:10→17:45)
[2018-01-11] MEDS: MULTIVITAMIN TABLET PO SCH (10:10)
[2018-01-11] MEDS: NYSTATIN TOPICAL POWDER 15 GM TP SCH ×2 (10:52→17:45)
--- NOTE | 2018-01-11 14:07 | PDOC PROGRESS REPORT ---
Subjective Progress Note for:: 01/11/18 Subjective:: Patient is seen resting in bed. She is awake and alert. She does not answer any questions due to her dementia. Nursing report no issues overnight. She has been eating and drinking well. Social work has been attempting to get a hold of her son without success so far. Review of systems cannot be obtained due to patient's mentation. Reason For Visit: URINARY TRACT INFECTION Physical Exam Vital Signs: Temp Pulse Resp BP Pulse Ox 98.3 F 98 16 104/71 98 01/11/18 11:14 01/11/18 11:14 01/11/18 11:14 01/11/18 11:14 01/11/18 11:14 Intake & Output 01/10/18 01/11/18 01/12/18 06:59 06:59 06:59 Intake Total 1052 1100 Output Total 700 800 Balance 352 300 Weight 69.6 kg 69.5 kg General appearance: PRESENT: no acute distress, well-developed, well-nourished Head exam: PRESENT: atraumatic, normocephalic Eye exam: PRESENT: conjunctiva pink, EOMI, PERRLA. ABSENT: scleral icterus Ear exam: PRESENT: normal external ear exam Mouth exam: PRESENT: moist, neck supple, tongue midline Teeth exam: PRESENT: edentulous Neck exam: ABSENT: carotid bruit, JVD, lymphadenopathy, thyromegaly Respiratory exam: PRESENT: clear to auscultation lyssa. ABSENT: rales, rhonchi, wheezes Cardiovascular exam: PRESENT: RRR. ABSENT: diastolic murmur, rubs, systolic murmur Pulses: PRESENT: normal dorsalis pedis pul Vascular exam: PRESENT: normal capillary refill GI/Abdominal exam: PRESENT: normal bowel sounds, soft. ABSENT: distended, guarding, mass, organolmegaly, rebound, tenderness Rectal exam: PRESENT: deferred Extremities exam: PRESENT: full ROM. ABSENT: calf tenderness, clubbing, pedal edema Musculoskeletal exam: PRESENT: full ROM, normal inspection Neurological exam: PRESENT: alert, altered, awake, reflexes normal, CN II-XII grossly intact Psychiatric exam: PRESENT: flat affect Skin exam: PRESENT: dry, intact, warm. ABSENT: cyanosis, rash Results Laboratory Results: 01/11/18 06:20 01/11/18 06:20 01/11/18 01/11/18 06:20 06:20 WBC 5.6 RBC 3.18 L Hgb 9.7 L Hct 27.9 L MCV 88 MCH 30.6 MCHC 34.8 RDW 13.0 Plt Count 231 Seg Neutrophils % 72.2 Lymphocytes % 17.3 Monocytes % 8.6 Eosinophils % 1.6 Basophils % 0.3 Absolute Neutrophils 4.0 Absolute Lymphocytes 1.0 Absolute Monocytes 0.5 Absolute Eosinophils 0.1 Absolute Basophils 0.0 Sodium 145.5 H Potassium 3.5 L Chloride 110 H Carbon Dioxide 28 Anion Gap 8 BUN 21 H Creatinine 0.46 L Est GFR ( Amer) > 60 Est GFR (Non-Af Amer) > 60 Glucose 111 H Calcium 8.4 Phosphorus 2.9 Magnesium 2.2 01/08/18 01/10/18 05:19 08:36 NT-Pro-B Natriuret Pep 6340 H [id number] H Impressions: Chest X-Ray 01/10/18 00:00 IMPRESSION: IMPROVED AERATION IN THE LUNG BASES. Modified Barium Swallow 01/10/18 00:00 IMPRESSION: LARYNGEAL PENETRATION WITH THIN LIQUIDS. NO ASPIRATION SEEN.PLEASE SEE SPEECH PATHOLOGIST REPORT FOR OTHER FINDINGS AND RECOMMENDATIONS. Assessment & Plan - Diagnosis (1) UTI due to extended-spectrum beta lactamase (ESBL) producing Escherichia coli Is this a current diagnosis for this admission?: Yes (2) Diaper rash Is this a current diagnosis for this admission?: Yes Plan: Today is her day #4 of therapy. She is on meropenem (3) Aspiration pneumonia Qualifiers: Aspiration pneumonia type: due to vomit Laterality: right Lung location: lower lobe of lung Qualified Code(s): J69.0 - Pneumonitis due to inhalation of food and vomit Is this a current diagnosis for this admission?: Yes Plan: Today is day #4 meropenem (4) Hyperlipidemia Qualifiers: Hyperlipidemia type: unspecified Qualified Code(s): E78.5 - Hyperlipidemia , unspecified Is this a current diagnosis for this admission?: Yes Plan: Continue statin (5) Hypokalemia Is this a current diagnosis for this admission?: Yes Plan: Replete and monitor (6) Hypothyroidism Qualifiers: Hypothyroidism type: acquired Qualified Code(s): E03.9 - Hypothyroidism, unspecified Is this a current diagnosis for this admission?: Yes Plan: Continue Levoxyl (7) Dementia Qualifiers: Dementia type: unspecified type Dementia behavioral disturbance: without behavioral disturbance Qualified Code(s): F03.90 - Unspecified dementia without behavioral disturbance Is this a current diagnosis for this admission?: Yes Plan: She is unable make decisions for herself. Social work is not been able to get a hold of her son. She normally resides at the [facility] - Time Time Spent with patient: 25-34 minutes Total Critical Time (Minutes): 15 Medications reviewed and adjusted accordingly: Yes Anticipated discharge: SNF
--- NOTE | 2018-01-11 14:33 | Progress Note ---
Provider Note Provider Note: ID Consult Note- I was asked to review the patient's chart by the Pharmacy Department. The patient has a history of dementia. She was admitted with fever, an abnormal urinalysis with pyuria, and urine culture positive for ESBL E. coli. The organism is sensitive to TMP-SMX and carbapenems. She is currently being treated with meropenem. Patient is no longer febrile; WBC is now normal. I reviewed the patient's CXRs. I do not believe that the patient has pneumonia. The infiltrates in the RLL are improved and appear to represent atelectasis rather than pneumonia. Recommend discontinuing meropenem and treating the E. coli in the urine with TMP -SMX (Bactrim) DS- 1 tab po BID. She is taking oral medications, so I do not see any reason why she cannot continue therapy with oral antibiotics. Please contact me if there are questions. Sonny Contreras MD Pager: [phone]
[2018-01-11] MEDS: LACTULOSE SYRUP 20 GM/30 ML UDCUP PO SCH (17:51)
[2018-01-11] MEDS: SENNOSIDES/DOCUSATE 8.6-50 MG 1 EACH TABLET PO SCH (23:40)
[2018-01-11] MEDS: ATORVASTATIN CALCIUM 10 MG TABLET PO SCH (23:41)
[2018-01-11] MEDS: SULFAMETHOXAZOLE/TRIMETHOPRIM 800-160 MG TABLET PO SCH (23:41)
[2018-01-11] MEDS: DIVALPROEX SODIUM 250 MG TAB.SR.24H PO SCH (23:42)
[2018-01-12] MEDS: LEVOTHYROXINE SODIUM 0.1 MG TABLET PO SCH (05:56)
[2018-01-12] MEDS: LANSOPRAZOLE 30 MG TAB.RAP.DR PO SCH (05:56)
[2018-01-12] MEDS: NYSTATIN TOPICAL POWDER 15 GM TP SCH ×2 (09:50→17:09)
[2018-01-12] MEDS: ENOXAPARIN SODIUM INJ 40 MG/0.4 ML DISP.SYRIN SUBCUT SCH (09:50)
[2018-01-12] MEDS: RIVASTIGMINE TARTRATE 1.5 MG CAPSULE PO SCH ×2 (09:50→17:11)
[2018-01-12] MEDS: MULTIVITAMIN TABLET PO SCH (09:51)
[2018-01-12] MEDS: LACTOBACILLUS ACIDOPHILUS 250 MG TAB PO SCH ×2 (09:51→17:11)
[2018-01-12] MEDS: ASPIRIN 325 MG TABLET PO SCH (09:51)
[2018-01-12] MEDS: SULFAMETHOXAZOLE/TRIMETHOPRIM 800-160 MG TABLET PO SCH ×2 (09:51→21:57)
[2018-01-12] MEDS: POTASSI CL 40 MEQ/D5-1/2NS 1L 40 MEQ/1,000 ML RTUINJ IV PRN (15:24)
[2018-01-12] MEDS: LACTULOSE SYRUP 20 GM/30 ML UDCUP PO SCH (17:05)
--- NOTE | 2018-01-12 20:48 | PDOC PROGRESS REPORT ---
Subjective Progress Note for:: 01/12/18 Subjective:: 77 yr old female with severe dementia, resident of [facility]. Presented with fever and UTI. She developed an acute episode of dyspnea and hypoxia on 01/08/18 thought secondary to aspiration. Is doing better now. Is npo, pending video barium swallow. Urine cultures grew ESBL producing E. coli. Blood cultures negative x 5 days. 01/11/[address] Contreras of [facility] and does not think she has pneumonia. Recommended switching antibiotics to Bactrim DS twice daily p.o. Patient completed for 5 days of meropenem. 01/12/18-- Awake and alert, smiles at me but does not speak or follow commands. Currently afebrile and appears comfortable. Reason For Visit: URINARY TRACT INFECTION Physical Exam Vital Signs: Temp Pulse Resp BP Pulse Ox 98.3 F 88 16 134/87 H 98 01/12/18 15:37 01/12/18 15:37 01/12/18 15:37 01/12/18 15:37 01/12/18 15:37 Intake & Output 01/11/18 01/12/18 01/13/18 06:59 06:59 06:59 Intake Total 1100 2074 1500 Output Total 800 825 800 Balance 300 1249 700 Weight 69.5 kg 69.5 kg General appearance: PRESENT: no acute distress Head exam: PRESENT: normocephalic Ear exam: PRESENT: normal external ear exam Neck exam: ABSENT: tracheal deviation Respiratory exam: PRESENT: symmetrical, unlabored Cardiovascular exam: PRESENT: RRR, systolic murmur GI/Abdominal exam: PRESENT: normal bowel sounds, soft. ABSENT: tenderness Extremities exam: ABSENT: pedal edema Results Laboratory Results: 01/11/18 06:20 01/11/18 06:20 01/08/18 01/10/18 05:19 08:36 NT-Pro-B Natriuret Pep 6340 H 16741 H Impressions: Chest X-Ray 01/10/18 00:00 IMPRESSION: IMPROVED AERATION IN THE LUNG BASES. Modified Barium Swallow 01/10/18 00:00 IMPRESSION: LARYNGEAL PENETRATION WITH THIN LIQUIDS. NO ASPIRATION SEEN.PLEASE SEE SPEECH PATHOLOGIST REPORT FOR OTHER FINDINGS AND RECOMMENDATIONS. Assessment & Plan - Inpatient Certification Based on my medical assessment, after consideration of the patient's comorbidities, presenting symptoms, or acuity I expect that the services needed warrant INPATIENT care.: Yes - Plan Summary Plan Summary: (1) UTI due to extended-spectrum beta lactamase (ESBL) producing Escherichia coli Is this a current diagnosis for this admission?: Yes Continue Bactrim DS day #2 (2) Diaper rash Is this a current diagnosis for this admission?: Yes Plan: Today is her day #5 of therapy. (3) Aspiration pneumonia--ruled out Qualifiers: Aspiration pneumonia type: due to vomit Laterality: right Lung location: lower lobe of lung Qualified Code(s): J69.0 - Pneumonitis due to inhalation of food and vomit Is this a current diagnosis for this admission?: Yes Plan: This has been ruled out Today is day 2 of Bactrim for UTI, status post 4 days of meropenem prior. (4) Hyperlipidemia Qualifiers: Hyperlipidemia type: unspecified Qualified Code(s): E78.5 - Hyperlipidemia , unspecified Is this a current diagnosis for this admission?: Yes Plan: Continue statin (5) Hypokalemia Is this a current diagnosis for this admission?: Yes Plan: Repleted 12/11, continue to monitor (6) Hypothyroidism Qualifiers: Hypothyroidism type: acquired Qualified Code(s): E03.9 - Hypothyroidism, unspecified Is this a current diagnosis for this admission?: Yes Plan: Continue Levoxyl (7) Dementia Qualifiers: Dementia type: unspecified type Dementia behavioral disturbance: without behavioral disturbance Qualified Code(s): F03.90 - Unspecified dementia without behavioral disturbance Is this a current diagnosis for this admission?: Yes Plan: She is unable make decisions for herself. She normally resides at the [facility]. Possible discharge back when high school social science teacher able to arrange/contact the son.
[2018-01-12] MEDS: ATORVASTATIN CALCIUM 10 MG TABLET PO SCH (21:57)
[2018-01-12] MEDS: DIVALPROEX SODIUM 250 MG TAB.SR.24H PO SCH (21:57)
[2018-01-12] MEDS: SENNOSIDES/DOCUSATE 8.6-50 MG 1 EACH TABLET PO SCH (21:58)
[2018-01-13] MEDS: LANSOPRAZOLE 30 MG TAB.RAP.DR PO SCH (06:17)
[2018-01-13] MEDS: LEVOTHYROXINE SODIUM 0.1 MG TABLET PO SCH (06:17)
[2018-01-13] MEDS: POTASSI CL 40 MEQ/D5-1/2NS 1L 40 MEQ/1,000 ML RTUINJ IV PRN ×2 (06:17→21:01)
[2018-01-13 07:51] LABS: ABSOLUTE BASOPHILS # (AUTO) 0.1 10^3/uL (0.0-0.2); ABSOLUTE EOSINOPHILS # (AUTO) 0.4 10^3/uL (0.0-0.6); ABSOLUTE LYMPHOCYTES (AUTO) 1.5 10^3/uL (0.5-4.7); ABSOLUTE MONOCYTES (AUTO) 0.5 10^3/uL (0.1-1.4); ABSOLUTE NEUT (AUTO) 3.7 10^3/uL (1.7-8.2); BASOPHILS % (AUTO) 0.9 % (0-2); HEMATOCRIT 28.4 % (36.0-47.0); HEMOGLOBIN 9.9 g/dL (12.0-15.5); LYMPHOCYTES % (AUTO) 24.4 % (13-45); MEAN CORPUSCULAR HEMOGLOBIN 30.5 pg (27.0-33.4); MEAN CORPUSCULAR VOLUME 87 fl (80-97); PLATELET COUNT 345 10^3/uL (150-450); RED BLOOD COUNT 3.25 10^6/uL (3.72-5.28); SEGMENTED NEUTROPHILS % (AUTO) 60.7 % (42-78); TOTAL CELLS COUNTED % (AUTO) 100 %; WHITE BLOOD COUNT 6.1 10^3/uL (4.0-10.5)
[2018-01-13 08:12] LABS: ANION GAP 10 (5-19); BLOOD UREA NITROGEN 8 mg/dL (7-20); CALCIUM 8.6 mg/dL (8.4-10.2); CARBON DIOXIDE 26 mmol/L (22-30); CHLORIDE 106 mmol/L (98-107); GLUCOSE 98 mg/dL (75-110); POTASSIUM 4.5 mmol/L (3.6-5.0); SODIUM 141.8 mmol/L (137-145)
[2018-01-13] MEDS: NYSTATIN TOPICAL POWDER 15 GM TP SCH ×2 (10:06→17:54)
[2018-01-13] MEDS: MULTIVITAMIN TABLET PO SCH (10:06)
[2018-01-13] MEDS: SULFAMETHOXAZOLE/TRIMETHOPRIM 800-160 MG TABLET PO SCH ×2 (10:06→21:00)
[2018-01-13] MEDS: ENOXAPARIN SODIUM INJ 40 MG/0.4 ML DISP.SYRIN SUBCUT SCH (10:06)
[2018-01-13] MEDS: LACTOBACILLUS ACIDOPHILUS 250 MG TAB PO SCH ×2 (10:06→17:54)
[2018-01-13] MEDS: ASPIRIN 325 MG TABLET PO SCH (10:06)
[2018-01-13] MEDS: RIVASTIGMINE TARTRATE 1.5 MG CAPSULE PO SCH ×2 (10:11→17:54)
[2018-01-13] MEDS: LACTULOSE SYRUP 20 GM/30 ML UDCUP PO SCH (17:54)
--- NOTE | 2018-01-13 18:21 | PDOC PROGRESS REPORT ---
Subjective Progress Note for:: 01/13/18 Subjective:: Today, 01/13/18-- Awake and alert, does not speak or follow commands. Currently afebrile and appears comfortable. P.o. Bactrim at this time, awaiting discharge back to [facility]. Summary 77 yr old female with severe dementia, resident of [facility]. Presented with fever and UTI. She developed an acute episode of dyspnea and hypoxia on 01/08/18 thought secondary to aspiration. However, 01/11/[address] Contreras of [facility] and ded not think she has pneumonia. Recommended switching antibiotics to Bactrim DS twice daily p.o. Patient completed for 5 days of meropenem. Urine cultures grew ESBL producing E. coli. Blood cultures negative x 5 days. Reason For Visit: URINARY TRACT INFECTION Physical Exam Vital Signs: Temp Pulse Resp BP Pulse Ox 97.8 F 80 16 141/62 H 96 01/13/18 16:56 01/13/18 16:56 01/13/18 16:56 01/13/18 16:56 01/13/18 16:56 Intake & Output 01/12/18 01/13/18 01/14/18 06:59 06:59 06:59 Intake Total 2074 2610 Output Total 825 1800 Balance 1249 810 Weight 69.5 kg 69.5 kg General appearance: PRESENT: no acute distress Head exam: PRESENT: normocephalic Ear exam: PRESENT: normal external ear exam Neck exam: ABSENT: tracheal deviation Respiratory exam: PRESENT: symmetrical, unlabored Cardiovascular exam: PRESENT: RRR, systolic murmur GI/Abdominal exam: PRESENT: normal bowel sounds, soft. ABSENT: tenderness Extremities exam: ABSENT: pedal edema Results Laboratory Results: 01/13/18 07:20 01/13/18 07:20 01/13/18 01/13/18 07:20 07:20 WBC 6.1 RBC 3.25 L Hgb 9.9 L Hct 28.4 L MCV 87 MCH 30.5 MCHC 35.0 RDW 13.0 Plt Count 345 Seg Neutrophils % 60.7 Lymphocytes % 24.4 Monocytes % 8.0 Eosinophils % 6.0 Basophils % 0.9 Absolute Neutrophils 3.7 Absolute Lymphocytes 1.5 Absolute Monocytes 0.5 Absolute Eosinophils 0.4 Absolute Basophils 0.1 Sodium 141.8 Potassium 4.5 Chloride 106 Carbon Dioxide 26 Anion Gap 10 BUN 8 Creatinine 0.47 L Est GFR ( Amer) > 60 Est GFR (Non-Af Amer) > 60 Glucose 98 Calcium 8.6 01/08/18 01/10/18 05:19 08:36 NT-Pro-B Natriuret Pep 6340 H 96180 H Impressions: Chest X-Ray 01/10/18 00:00 IMPRESSION: IMPROVED AERATION IN THE LUNG BASES. Modified Barium Swallow 01/10/18 00:00 IMPRESSION: LARYNGEAL PENETRATION WITH THIN LIQUIDS. NO ASPIRATION SEEN.PLEASE SEE SPEECH PATHOLOGIST REPORT FOR OTHER FINDINGS AND RECOMMENDATIONS. Assessment & Plan - Plan Summary Plan Summary: (1) UTI due to extended-spectrum beta lactamase (ESBL) producing Escherichia coli Is this a current diagnosis for this admission?: Yes Continue Bactrim DS day #3 (2) Diaper rash Is this a current diagnosis for this admission?: Yes Plan: Today is her day #6 of therapy. (3) Aspiration pneumonia--ruled out Qualifiers: Aspiration pneumonia type: due to vomit Laterality: right Lung location: lower lobe of lung Qualified Code(s): J69.0 - Pneumonitis due to inhalation of food and vomit Is this a current diagnosis for this admission?: Yes Plan: This has been ruled out Today is day 3 of Bactrim for UTI, status post 4 days of meropenem prior. (4) Hyperlipidemia Qualifiers: Hyperlipidemia type: unspecified Qualified Code(s): E78.5 - Hyperlipidemia , unspecified Is this a current diagnosis for this admission?: Yes Plan: Continue statin (5) Hypokalemia Is this a current diagnosis for this admission?: Yes Plan: Repleted 12/11, continue to monitor (6) Hypothyroidism Qualifiers: Hypothyroidism type: acquired Qualified Code(s): E03.9 - Hypothyroidism, unspecified Is this a current diagnosis for this admission?: Yes Plan: Continue Levoxyl (7) Dementia Qualifiers: Dementia type: unspecified type Dementia behavioral disturbance: without behavioral disturbance Qualified Code(s): F03.90 - Unspecified dementia without behavioral disturbance Is this a current diagnosis for this admission?: Yes Plan: She is unable make decisions for herself. She normally resides at the [facility]. Ready for discharge back when older adult social work specialist able to arrange/contact the son.
[2018-01-13] MEDS: ATORVASTATIN CALCIUM 10 MG TABLET PO SCH (21:00)
[2018-01-13] MEDS: DIVALPROEX SODIUM 250 MG TAB.SR.24H PO SCH (21:01)
[2018-01-13] MEDS: SENNOSIDES/DOCUSATE 8.6-50 MG 1 EACH TABLET PO SCH (21:01)
[2018-01-14] MEDS: LANSOPRAZOLE 30 MG TAB.RAP.DR PO SCH (07:14)
[2018-01-14] MEDS: LEVOTHYROXINE SODIUM 0.1 MG TABLET PO SCH (07:15)
[2018-01-14] MEDS: ENOXAPARIN SODIUM INJ 40 MG/0.4 ML DISP.SYRIN SUBCUT SCH (09:31)
[2018-01-14] MEDS: LACTOBACILLUS ACIDOPHILUS 250 MG TAB PO SCH ×2 (09:31→17:49)
[2018-01-14] MEDS: RIVASTIGMINE TARTRATE 1.5 MG CAPSULE PO SCH ×2 (09:31→16:47)
[2018-01-14] MEDS: ASPIRIN 325 MG TABLET PO SCH (09:32)
[2018-01-14] MEDS: NYSTATIN TOPICAL POWDER 15 GM TP SCH (09:32)
[2018-01-14] MEDS: MULTIVITAMIN TABLET PO SCH (09:32)
[2018-01-14] MEDS: SULFAMETHOXAZOLE/TRIMETHOPRIM 800-160 MG TABLET PO SCH ×2 (09:32→22:08)
[2018-01-14] MEDS: POTASSI CL 40 MEQ/D5-1/2NS 1L 40 MEQ/1,000 ML RTUINJ IV PRN (12:00)
--- NOTE | 2018-01-14 15:01 | PDOC PROGRESS REPORT ---
Subjective Progress Note for:: 01/14/18 Subjective:: Patient is awake and alert, does not speak or follow commands. Currently afebrile and appears comfortable. Now on p.o. Bactrim, awaiting discharge back to [facility]. Summary 77 yr old female with severe dementia, resident of [facility]. Presented with fever and UTI. She developed an acute episode of dyspnea and hypoxia on 01/08/18 thought secondary to aspiration. However, 01/11/[address] Contreras of [facility] and ded not think she has pneumonia. Recommended switching antibiotics to Bactrim DS twice daily p.o. Patient completed for 5 days of meropenem. Urine cultures grew ESBL producing E. coli. Blood cultures negative x 5 days. Reason For Visit: URINARY TRACT INFECTION Physical Exam Vital Signs: Temp Pulse Resp BP Pulse Ox 98 F 88 16 104/62 92 01/14/18 12:00 01/14/18 12:00 01/14/18 12:00 01/14/18 12:00 01/14/18 12:00 Intake & Output 01/13/18 01/14/18 01/15/18 06:59 06:59 06:59 Intake Total 2610 1679 Output Total 1800 3400 Balance 810 -1721 Weight 69.5 kg 68.2 kg General appearance: PRESENT: no acute distress Head exam: PRESENT: normocephalic Ear exam: PRESENT: normal external ear exam Neck exam: ABSENT: tracheal deviation Respiratory exam: PRESENT: symmetrical, unlabored Cardiovascular exam: PRESENT: RRR, [id number], systolic murmur GI/Abdominal exam: PRESENT: normal bowel sounds, soft. ABSENT: tenderness Extremities exam: ABSENT: pedal edema Results Laboratory Results: 01/13/18 07:20 01/13/18 07:20 01/08/18 01/10/18 05:19 08:36 NT-Pro-B Natriuret Pep 6340 H [id number] H Impressions: Chest X-Ray 01/10/18 00:00 IMPRESSION: IMPROVED AERATION IN THE LUNG BASES. Modified Barium Swallow 01/10/18 00:00 IMPRESSION: LARYNGEAL PENETRATION WITH THIN LIQUIDS. NO ASPIRATION SEEN.PLEASE SEE SPEECH PATHOLOGIST REPORT FOR OTHER FINDINGS AND RECOMMENDATIONS. Assessment & Plan - Plan Summary Plan Summary: (1) UTI due to extended-spectrum beta lactamase (ESBL) producing Escherichia coli Is this a current diagnosis for this admission?: Yes Continue Bactrim DS day #4 -This is day 8 of antibiotics altogether. Leukocytosis has resolved. Will discontinue Bactrim/abx at this time. (2) Diaper rash Is this a current diagnosis for this admission?: Yes Plan: Today is her day #7 of therapy. (3) Aspiration pneumonia--ruled out Qualifiers: Aspiration pneumonia type: due to vomit Laterality: right Lung location: lower lobe of lung Qualified Code(s): J69.0 - Pneumonitis due to inhalation of food and vomit Is this a current diagnosis for this admission?: Yes Plan: This has been ruled out Today is day 4 of Bactrim for UTI, status post 4 days of meropenem prior. (4) Hyperlipidemia Qualifiers: Hyperlipidemia type: unspecified Qualified Code(s): E78.5 - Hyperlipidemia , unspecified Is this a current diagnosis for this admission?: Yes Plan: Continue statin (5) Hypokalemia Is this a current diagnosis for this admission?: Yes Plan: Repleted 12/11, continue to monitor (6) Hypothyroidism Qualifiers: Hypothyroidism type: acquired Qualified Code(s): E03.9 - Hypothyroidism, unspecified Is this a current diagnosis for this admission?: Yes Plan: Continue Levoxyl (7) Dementia Qualifiers: Dementia type: unspecified type Dementia behavioral disturbance: without behavioral disturbance Qualified Code(s): F03.90 - Unspecified dementia without behavioral disturbance Is this a current diagnosis for this admission?: Yes Plan: She is unable make decisions for herself. She normally resides at the [facility]. Ready for discharge back when social sciences instructor able to arrange transfer/contact the son. She should be able to go tomorrow, after the weekend.
[2018-01-14] MEDS: LACTULOSE SYRUP 20 GM/30 ML UDCUP PO SCH (17:49)
[2018-01-14] MEDS: DIVALPROEX SODIUM 250 MG TAB.SR.24H PO SCH (22:07)
[2018-01-14] MEDS: SENNOSIDES/DOCUSATE 8.6-50 MG 1 EACH TABLET PO SCH (22:08)
[2018-01-14] MEDS: ATORVASTATIN CALCIUM 10 MG TABLET PO SCH (22:08)
[2018-01-15] MEDS: POTASSI CL 40 MEQ/D5-1/2NS 1L 40 MEQ/1,000 ML RTUINJ IV PRN (04:25)
[2018-01-15] MEDS: LEVOTHYROXINE SODIUM 0.1 MG TABLET PO SCH (05:48)
[2018-01-15] MEDS: LANSOPRAZOLE 30 MG TAB.RAP.DR PO SCH (05:48)
[2018-01-15] MEDS ORDERED: ONDANSETRON 4 MG TAB.RAPDIS PO PRN (07:30)
[2018-01-15] MEDS ORDERED: ONDANSETRON HCL INJ/PF 4 MG/2 ML SDV IV PRN (07:30)
[2018-01-15] MEDS: RIVASTIGMINE TARTRATE 1.5 MG CAPSULE PO SCH ×2 (08:19→15:20)
[2018-01-15] MEDS ORDERED: ZINC OXIDE 20% OINTMENT 28.35 GM TP SCH (10:00)
[2018-01-15] MEDS: ENOXAPARIN SODIUM INJ 40 MG/0.4 ML DISP.SYRIN SUBCUT SCH (10:10)
[2018-01-15] MEDS: SULFAMETHOXAZOLE/TRIMETHOPRIM 800-160 MG TABLET PO SCH (10:10)
[2018-01-15] MEDS: ASPIRIN 325 MG TABLET PO SCH (10:10)
[2018-01-15] MEDS: LACTOBACILLUS ACIDOPHILUS 250 MG TAB PO SCH (10:10)
[2018-01-15] MEDS: MULTIVITAMIN TABLET PO SCH (10:10)
--- NOTE | 2018-01-15 12:33 | PDOC TRANSFER SUMMARY ---
General - Admit/Disc Date/PCP Admission Date/Primary Care Provider: 01/07/18 16:54 NO LOCALMD Discharge Date: 01/15/18 - Discharge Diagnosis (1) Urinary tract infection Is this a current diagnosis for this admission?: Yes Summary: ESBL E coli (2) Diaper rash Is this a current diagnosis for this admission?: Yes Summary: Resolved (3) Dementia Is this a current diagnosis for this admission?: Yes (4) Hypothyroidism Is this a current diagnosis for this admission?: Yes (5) DVT prophylaxis Is this a current diagnosis for this admission?: Yes (6) Full code status Is this a current diagnosis for this admission?: Yes (7) Aspiration pneumonia Is this a current diagnosis for this admission?: No Summary: This was ruled out - Additional Information Resuscitation Status: Full Code Home Medications: Acetaminophen [Tylenol 325 mg Tablet] 650 mg PO Q6HP PRN 01/08/18 Aspirin [Aspirin 325 mg Tablet] 325 mg PO DAILY 01/08/18 Cold Cream/Zinc Oxide/Star/Jm [Dermacloud Ointment] 1 applic TP ASDIR PRN 01/08 Divalproex Sodium [Depakote ER 250 mg Tablet] 750 mg PO QHS 01/08/18 Lactulose [Constulose 10 gm/15 mL Oral Solution] 20 gm PO BID 01/08/18 Levothyroxine Sodium [Synthroid] 100 mcg PO Q6AM 01/08/18 Magnesium Hydroxide [Milk of Magnesia 30 ml Udcup] 30 ml PO DAILYP PRN 01/08/18 Meloxicam [Mobic] 7.5 mg PO DAILY 01/08/18 Neomy Sulf/Bacitrac Zn/Poly [Triple Antibiotic Ointment] 28 gm TP DAILYP PRN 11/22 Omeprazole 20 mg PO QAM 01/08/18 Sennosides/Docusate Sodium [Senna-S Tablet] 2 each PO HSP PRN 01/08/18 Acetaminophen [Tylenol 325 mg Tablet] 650 mg PO Q6HP PRN tablet 01/15/18 Aspirin [Aspirin 325 mg Tablet] 325 mg PO DAILY tablet 01/15/18 Atorvastatin Calcium [Lipitor 10 mg Tablet] 10 mg PO QHS tablet 01/15/18 Divalproex Sodium [Depakote ER 250 mg Tablet] 750 mg PO QHS tab.sr.24h Lactobacillus Acidophilus [Bacid 250 mg Tablet] 500 mg PO BID tab 01/15/18 Lactulose [Cephulac Syrup 20 gm/30 ml Udcup] 10 gm PO QPM udc 01/15/18 Levothyroxine Sodium [Synthroid 0.1 mg Tablet] 0.1 mg PO Q6AM tablet 01/15/18 Meloxicam [Mobic 7.5 mg Tablet] 7.5 mg PO DAILYP PRN tablet 01/15/18 Ondansetron [Zofran Odt 4 mg Tablet] 4 mg PO Q4HP PRN tab.rapdis 01/15/18 Rivastigmine Tartrate [Exelon 1.5 mg Capsule] 3 mg PO BIDACBS capsule 01/15/18 Sennosides/Docusate 8.6-50 mg [Senna Plus Tablet] 2 each PO QHS tablet Sulfamethoxazole/Trimethoprim [Septra-Ds 800-160 mg Tablet] 1 tab PO Q12 3 Days tablet 01/15/18 History of Present Illness Admission Date/PCP: 01/07/18 16:54 NO LOCALMD History of Present Illness: RIGOBERTO JEAN-BAPTISTE is a 77 year old female with Dementia lines in the [facility] Hypothyroidism Hypertension Hyperlipidemia GERD Depression Healthcare POA is her son Pérez Jean-Baptiste ph [phone] He states that she is to be a FULL [employer]. The patient was sent to the ER due to fever and was found to have a UTI. She was treated with IV fluids and Levaquin and referred for admission. Urine cultures were positive for ESBL producing E coli, she was on Meropenem which was later switched to Bactrim. The patient was noted to have a diaper rash over the pubic and groin area most likely due to urinary incontinence. This cleared with local care. Video barium swallow evaluation showed that she was okay for pured food and thin liquids. She is stable and ready for discharge. Physical Exam Vital Signs: Temp Pulse Resp BP Pulse Ox 98.5 F 85 18 99/57 L 97 01/15/18 11:22 01/15/18 11:22 01/15/18 11:22 01/15/18 11:22 01/15/18 11:22 Intake & Output 01/14/18 01/15/18 01/16/18 06:59 06:59 06:59 Intake Total 1679 1521 Output Total 1463 8910 Balance -1721 -1079 Weight 68.2 kg 68.4 kg General appearance: PRESENT: no acute distress Respiratory exam: PRESENT: symmetrical, unlabored Results Laboratory Results: 01/13/18 07:20 01/13/18 07:20 01/08/18 01/10/18 05:19 08:36 NT-Pro-B Natriuret Pep 6340 H [id number] H Impressions: Chest X-Ray 01/10/18 00:00 IMPRESSION: IMPROVED AERATION IN THE LUNG BASES. Modified Barium Swallow 01/10/18 00:00 IMPRESSION: LARYNGEAL PENETRATION WITH THIN LIQUIDS. NO ASPIRATION SEEN.PLEASE SEE SPEECH PATHOLOGIST REPORT FOR OTHER FINDINGS AND RECOMMENDATIONS. Transfer Plan - Time Spent with Patient Time spent with patient: Less than 30 Minutes Qualifiers - * PATIENT BEING DISCHARGED WITH ANY OF THE FOLLOWING DIAGNOSIS: No Plan Time Spent: Greater than 30 Minutes
[2018-01-15 17:03] VITALS: BP 102/60
== END 2018-01-15 18:46 | DRG 690 ==
LOC: ER 13:09 → EH 16:54 → 3W 01-08 00:55 → 5 01-10 15:20
PROVIDERS: ADMIT Internal Medicine; ATTEND Internal Medicine
DX: N39.0 Urinary tract infection, site not specified (principal); E78.5 Hyperlipidemia, unspecified; I10 Essential (primary) hypertension; K21.9 Gastro-esophageal reflux disease without esophagitis; R09.02 Hypoxemia; R00.0 Tachycardia, unspecified; F32.9 Major depressive disorder, single episode, unspecified; F03.90 Unspecified dementia, unspecified severity, without behavioral disturbance, psychotic disturbance, mood disturbance, and anxiety; L22 Diaper dermatitis; E03.9 Hypothyroidism, unspecified; Z16.12 Extended spectrum beta lactamase (ESBL) resistance; B96.20 Unspecified Escherichia coli [E. coli] as the cause of diseases classified elsewhere; E87.6 Hypokalemia; Z90.710 Acquired absence of both cervix and uterus; Z79.82 Long term (current) use of aspirin; Z79.899 Other long term (current) drug therapy; Z82.49 Family history of ischemic heart disease and other diseases of the circulatory system
CPT/HCPCS: 36415; 36600; 51702; 71045; 74230; 80048; 80053; 80164; 80202; 81001; 82962; 83605; 83735; 83880; 84100; 84443; 84484; 85025; 87040; 87086; 87088; 87186; 87493; 93005; 93010; 94640; 96365; 99285; G8996-GN; G8997-GN; G8998-GN; J0696; J1650; J1940; J1956; J2185; J2405; J3370; J3475; J3480; J3490; J7030; J7060; J7614; L3908

== ENCOUNTER 2018-02-13 03:09 | Emergency (ER) | payer OTHER, MEDICARE ==
--- NOTE | 2018-02-13 04:26 | ER Document Report ---
ED General - General Stated Complaint: FALL Time Seen by Provider: 02/13/18 04:06 Mode of Arrival: Medic Information source: Emergency Med Personnel Notes: 77 year old female brought to the ED by EMS from nursing facility s/p fall. Patient was found laying next to her bed. Patient is at her normal mental status baseline per nursing facility. TRAVEL OUTSIDE OF THE [place] IN LAST 30 DAYS: No - HPI Onset: Just prior to arrival Onset/Duration: Sudden Quality of pain: No pain Associated symptoms: None Exacerbated by: Denies Relieved by: Denies - Related Data Allergies/Adverse Reactions: No Known Allergies Allergy (Verified 06/15/17 15:12) Past Medical History - Social History Smoking Status: Unknown if Ever Smoked Family History: Hypertension - Past Medical History Cardiac Medical History: Reports: Hx Hypercholesterolemia, Hx Hypertension Renal/ Medical History: Denies: Hx Peritoneal Dialysis GI Medical History: Reports: Hx Gastroesophageal Reflux Disease Psychiatric Medical History: Reports: Hx Dementia, Hx Depression Past Surgical History: Reports: Hx Hysterectomy, Hx Orthopedic Surgery - carpal tunnel - Immunizations Hx Diphtheria, Pertussis, Tetanus Vaccination: Yes Review of Systems - Review of Systems -: Yes ROS unobtainable due to patient's medical condition Physical Exam - Vital signs Vitals: Temp Pulse Resp BP Pulse Ox 98.7 F 88 14 104/58 L 94 02/13/18 03:18 02/13/18 03:18 02/13/18 03:18 02/13/18 03:18 02/13/18 03:18 Interpretation: Normal - Notes Notes: PHYSICAL EXAMINATION: GENERAL: Frail. HEAD: Atraumatic. EYES: Pupils equal round and reactive to light, extraocular movements intact, conjunctiva are normal. ENT: Nares patent, oropharynx clear without exudates. Moist mucous membranes. NECK: Normal range of motion, supple without lymphadenopathy LUNGS: Breath sounds clear to auscultation bilaterally and equal. No wheezes rales or rhonchi. HEART: Regular rate and rhythm without murmurs ABDOMEN: Soft, nontender, nondistended abdomen. No guarding, no rebound. Female : deferred Musculoskeletal: Normal range of motion, no pitting or edema. No cyanosis. NEUROLOGICAL: Cranial nerves grossly intact. SKIN: Warm, Dry, normal turgor, no rashes or lesions noted. Course - Re-evaluation Re-evalutation: 02/13/18 05:42 Patient moving all extremities. No tenderness to palpation of the extremities. CT head normal. I will discharge patient back to nursing facility. - Vital Signs Vital signs: Temp Pulse Resp BP Pulse Ox 98.7 F 88 14 104/58 L 94 02/13/18 03:18 02/13/18 03:18 02/13/18 03:18 02/13/18 03:18 02/13/18 03:18 Discharge - Discharge Clinical Impression: Fall Qualifiers: Encounter type: initial encounter Qualified Code(s): W19.XXXA - Unspecified fall, initial encounter Dementia Qualifiers: Dementia type: unspecified type Dementia behavioral disturbance: without behavioral disturbance Qualified Code(s): F03.90 - Unspecified dementia without behavioral disturbance Condition: Good [facility] Instructions: Head Injury Precautions ([facility]) Referrals: LOCAL,NO [Primary Care Provider] - Follow up as needed ROVERTO LEMUS MD [ACTIVE STAFF] - Follow up as needed
--- NOTE | 2018-02-13 05:39 | RADIOLOGY REPORT (SQ) ---
EXAM DESCRIPTION: CT HEAD WITHOUT IV CONTRAST COMPLETED DATE/TME: 02/13/2018 04:18 EXAM DESCRIPTION: CT of the head without contrast CLINICAL HISTORY: fall COMPARISON: 12/06/2017 TECHNIQUE: Axial CT of the head obtained from the skull apex to the skull base without contrast. FINDINGS: No acute intracranial hemorrhage identified. No mass, mass effect, shift of the midline, abnormal extra-axial fluid collection or CT evidence of acute ischemic change identified. The ventricular system and sulcal spaces are mildly enlarged compatible with mild cerebral atrophy. Confluent areas of hypodensity throughout the supratentorial white matter are nonspecific and may be related to chronic small vessel ischemic change. The visualized paranasal sinuses and the mastoids are clear. No skull fracture identified. Visualized orbits and globes are unremarkable. Atherosclerotic calcification of the intracranial internal carotid arteries. DLP: 1017.17 mGy-cm IMPRESSION: 1. No acute intracranial abnormality by CT criteria. This exam was performed according to our departmental dose-optimization program, which includes automated exposure control, adjustment of the mA and/or kV according to patient size and/or use of iterative reconstruction technique.
[2018-02-13 06:19] VITALS: BP 102/60
== END 2018-02-13 06:29 ==
LOC: ER 03:09
DX: Z04.3 Encounter for examination and observation following other accident (principal); F03.90 Unspecified dementia, unspecified severity, without behavioral disturbance, psychotic disturbance, mood disturbance, and anxiety; I10 Essential (primary) hypertension
CPT/HCPCS: 70450; 99284